=== PATIENT | male | born 1970 | race Caucasian/White ===

== ENCOUNTER 2016-10-06 16:43 | Emergency (ER) | payer OTHER ==
[2016-10-06] MEDS ORDERED: THIAMINE 100 MG/ML 2 ML VIAL IM STA (16:56)
[2016-10-06] MEDS ORDERED: LORazepam 2 MG/ML SYRINGE IV PRN ×2 (16:56)
--- NOTE | 2016-10-06 17:00 | ED ---
Alcohol HPI - General Chief Complaint: Alcohol Stated Complaint: ETOH WITHDRAWALS Time Seen by Provider: 10/06/16 16:46 Source: patient, EMS, RN notes reviewed Mode of arrival: EMS - History of Present Illness Initial Comments: Patient is a 46-year-old male with chief complaint of alcohol withdrawal. Patient reports the epigastric 6 hours gone was 4 shots of vodka. Patient states that he is now sober and is starting to feel anxious and shaky. Patient reports he feels is going to have seizure. Patient states that he has no abdominal pain did not tolerate his head. Patient states that he is currently trying to go through detox and then go to stay with his brother in [place]. Patient reports that he tried to do [facility] however he has failed. Patient states that he is a heavy drinker and drinks approximately a fifth or more of alcohol a year. Patient reports that he has been treated for alcohol intoxication withdrawal multiple times. He states he has been troubled with addiction most of his life. - Related Data Previous Rx's Medication Instructions Recorded LORazepam [Ativan] 1 mg PO TID #9 tab 10/06/16 Ondansetron Odt [Zofran Odt] 4 mg PO Q8HR PRN #12 tab 10/06/16 Allergies Allergy/AdvReac Type Severity Reaction Status Date / Time hydrocodone bitartrate Allergy Itching Verified 10/06/16 16:51 [From Vicodin] Review of Systems ROS Statement: Those systems with pertinent positive or pertinent negative responses have been documented in the HPI. ROS Other: All systems not noted in ROS Statement are negative. Past Medical History Past Medical History: Cancer, Deep Vein Thrombosis (DVT), Pneumonia, Seizure Disorder, Skin Disorder Additional Past Medical History / Comment(s): CHRONIC ALCOHOLIC SEIZURES R/T WITHDRAWLS, NECROTIZING FASCIITIS RT HAND WAS HOSPITALIZED 53 DAYS ( 2010 )- WAS ON BEDREST -DEVELOPED DVT'S , C-DIFF APPROX 4 YEARS AGO. BROKEN NOSE(HAD SX) , PANCREATITIS. History of Any Multi-Drug Resistant Organisms: None Reported Additional Past Surgical History / Comment(s): SKIN GRAFT DONE ON RIGHT HAND/ SKIN WAS TAKEN FROM HIS RT THIGH, PT STATED" HAS A STENT OR FILTER TO STOP BLOOD CLOTS FROM GOING TO HIS HEART: SX TO REPAIR BROKEN NOSE. DISLOCATED RT SHOULDER REPAIRED. Past Anesthesia/Blood Transfusion Reactions: No Reported Reaction Additional Past Anesthesia/Blood Transfusion Reaction / Comment(s): CLAUSTERPHOBIA Past Psychological History: Anxiety, Depression Smoking Status: Current every day smoker Past Alcohol Use History: Abuse, Daily Additional Past Alcohol Use History / Comment(s): STARTED SMOKING AT AGE 20- SMOKES 1/2 PPD.PT STATED HE DRINKS DAILY A FIFTH OF VODKA.DENIES PAST OR CURRENT DRUG USE. Past Drug Use History: None Reported - Past Family History Father Family Medical History: Cancer Additional Family Medical History / Comment(s): MULTIPLE MYELOMA. 2006 Mother Family Medical History: Cancer Additional Family Medical History / Comment(s): BREAST CANCER, STILL LIVING General Exam - General Exam Comments Initial Comments: Patient is a 46-year-old male. Patient is shaking and requesting IV Ativan. General appearance: alert, in no apparent distress Head exam: Present: atraumatic, normocephalic, normal inspection Eye exam: Present: normal appearance, PERRL, EOMI. Absent: scleral icterus, conjunctival injection, periorbital swelling ENT exam: Present: normal exam, normal oropharynx, mucous membranes moist, TM's normal bilaterally Neck exam: Present: normal inspection. Absent: tenderness, meningismus, lymphadenopathy Respiratory exam: Present: normal lung sounds bilaterally. Absent: respiratory distress, wheezes, rales, rhonchi, stridor Cardiovascular Exam: Present: regular rate, normal rhythm, normal heart sounds. Absent: systolic murmur, diastolic murmur, rubs, gallop, clicks GI/Abdominal exam: Present: soft, normal bowel sounds. Absent: distended, tenderness, guarding, rebound, rigid Extremities exam: Present: normal inspection, full ROM, normal capillary refill. Absent: tenderness, pedal edema, joint swelling, calf tenderness Back exam: Present: normal inspection, full ROM Neurological exam: Present: alert, oriented X3, CN II-XII intact Psychiatric exam: Present: normal affect, normal mood Skin exam: Present: warm, dry, intact, normal color. Absent: rash Course Vital Signs 10/06/16 10/06/16 10/06/16 16:46 17:16 17:17 Temperature 97.4 F L 97.8 F Pulse Rate 70 119 H Pulse Rate [ 120 H [employer] ] Respiratory 22 22 Rate Blood Pressure 135/80 109/78 O2 Sat by Pulse 90 L 98 Oximetry 10/06/16 10/06/16 18:40 19:03 Temperature 97.9 F 98.9 F Pulse Rate 98 115 H Pulse Rate [ [employer] ] Respiratory 20 20 Rate Blood Pressure 113/78 134/80 O2 Sat by Pulse 96 93 L Oximetry Medical Decision Making - Medical Decision Making Patient is a 46-year-old male chief complaint of alcohol withdrawal. Patient labs are reviewed. Patient given IV fluids including banana bag. Patient will be discharged at this time with prescription for Ativan, Zofran and advised to follow up with primary care provider. Patient states that he is going to his brother's house to complete detox within the next 3 days. Patient agrees with treatment plan will comply. Return parameters were discussed. - Lab Data Result diagrams: 10/06/16 17:10 10/06/16 17:10 Lab Results 10/06/16 10/06/16 Range/Units 17:10 17:10 WBC 11.4 H (3.8-10.6) k/uL RBC 4.34 (4.30-5.90) m/uL Hgb 16.3 (13.0-17.5) gm/dL Hct 48.0 (39.0-53.0) % MCV 110.7 H (80.0-100.0) fL MCH 37.6 H (25.0-35.0) pg MCHC 33.9 (31.0-37.0) g/dL RDW 14.6 (11.5-15.5) % Plt Count 308 (150-450) k/uL Neutrophils % 73 % Lymphocytes % 19 % Monocytes % 4 % Eosinophils % 1 % Basophils % 1 % Neutrophils # 8.3 H (1.3-7.7) k/uL Lymphocytes # 2.1 (1.0-4.8) k/uL Monocytes # 0.5 (0-1.0) k/uL Eosinophils # 0.1 (0-0.7) k/uL Basophils # 0.1 (0-0.2) k/uL Manual Slide Review Performed Macrocytosis Marked Sodium 130 L (137-145) mmol/L Potassium 3.5 (3.5-5.1) mmol/L Chloride 74 L* (98-107) mmol/L Carbon Dioxide 25 (22-30) mmol/L Anion Gap 31 mmol/L BUN 18 (9-20) mg/dL Creatinine 0.95 (0.66-1.25) mg/dL Est GFR (MDRD) Af Amer >60 (>60 ml/min/1.73 sqM) Est GFR (MDRD) Non-Af >60 (>60 ml/min/1.73 sqM) Glucose 106 H (74-99) mg/dL Calcium 9.9 (8.4-10.2) mg/dL Magnesium 1.9 (1.6-2.3) mg/dL Total Bilirubin 1.5 H (0.2-1.3) mg/dL AST 68 H (17-59) U/L ALT 34 (21-72) U/L Alkaline Phosphatase 103 (38-126) U/L Total Protein 9.4 H (6.3-8.2) g/dL Albumin 5.3 H (3.5-5.0) g/dL Amylase 124 H (30-110) U/L Lipase 142 (23-300) U/L Disposition Clinical Impression: Alcohol dependence with withdrawal Disposition: HOME SELF-CARE Condition: Good Instructions: Alcohol Withdrawal (ED) Additional Instructions: Patient denies to take prescriptions as directed. Follow-up with primary care provider. Patient also recommended to complete a drug and alcohol treatment program. Return emergency department if any alarming signs or symptoms occur. Prescriptions: LORazepam [Ativan] 1 mg PO TID #9 tab Ondansetron Odt [Zofran Odt] 4 mg PO Q8HR PRN #12 tab PRN Reason: Nausea Referrals: Lizabeth Burgess MD [Primary Care Provider] - 1-2 days Time of Disposition: 20:02
[2016-10-06] MEDS: LORazepam 2 MG/ML SYRINGE IV PRN ×3 (17:11→19:03)
[2016-10-06 17:20] LABS: Basophils # (A) 0.1 k/uL (0-0.2); Basophils % (A) 1 %; CH 37.9; CHCM 34.4; Eosinophils # (A) 0.1 k/uL (0-0.7); Eosinophils % (A) 1 %; HDW 2.27; HGB 16.3 gm/dL (13.0-17.5); Luc # (Auto) 0.32; Luc % (Auto) 3; Lymphocytes # (A) 2.1 k/uL (1.0-4.8); Lymphocytes % (A) 19 %; MCH 37.6 pg (25.0-35.0); MCHC 33.9 g/dL (31.0-37.0); MCV 110.7 fL (80.0-100.0); Macrocytosis Marked; Mean Platelet Volume 6.7; Monocytes # (A) 0.5 k/uL (0-1.0); Monocytes % (A) 4 %; Neutrophils # (A) 8.3 k/uL (1.3-7.7); Neutrophils % (A) 73 %; RBC 4.34 m/uL (4.30-5.90); RDW 14.6 % (11.5-15.5); WBC 11.4 k/uL (3.8-10.6); WBC (Perox) 11.43
[2016-10-06 17:30] LABS: ALT 34 U/L (21-72); AST 68 U/L (17-59); Alkaline Phosphatase 103 U/L (38-126); Amylase 124 U/L (30-110); Anion Gap 31 mmol/L; Blood Urea Nitrogen 18 mg/dL (9-20); Calcium 9.9 mg/dL (8.4-10.2); Carbon Dioxide 25 mmol/L (22-30); Glucose 106 mg/dL (74-99); Magnesium 1.9 mg/dL (1.6-2.3); Non-African American GFR(MDRD) >60 (>60 ml/min/1.73 sqM); Potassium 3.5 mmol/L (3.5-5.1); Sodium 130 mmol/L (137-145); Total Bilirubin 1.5 mg/dL (0.2-1.3); Total Protein 9.4 g/dL (6.3-8.2)
[2016-10-06 17:31] LABS: Chloride 74 mmol/L (98-107)
[2016-10-06] MEDS ORDERED: SODIUM CHLORIDE 0.9% 1,000 ML with MVI, ADULT NO.4 WITH VIT K 10 ML, THIAMINE 100 MG, F... IV ONE ×4 (18:00)
[2016-10-06 18:31] LABS: Manual Review Performed
[2016-10-06] MEDS ORDERED: SODIUM CHLORIDE 0.9% 1,000 ML IV ONE (19:15)
[2016-10-06] MEDS ORDERED: LORazepam 2 MG/ML SYRINGE IV STA (20:15)
[2016-10-06 20:31] VITALS: BP 113/59; PULSE 103; RESP 18; TEMP 99.7
== END 2016-10-06 20:30 | disposition home or self-care (01) ==
LOC: EC 16:43
DX: F10.239 Alcohol dependence with withdrawal, unspecified (principal); F17.200 Nicotine dependence, unspecified, uncomplicated; Z88.5 Allergy status to narcotic agent
CPT/HCPCS: 96376 ×3; 99285 ×2; 96365 ×2; 96366 ×3; 96375 ×2; 96372 ×2; 82075; 36415; 80053; 82150; 83690; 83735; 85025; J2060; J3411; 96361; 96374; 99284

== ENCOUNTER 2016-11-01 15:59 | Inpatient (IN) | payer OTHER ==
[2016-11-01] MEDS ORDERED: SODIUM CHLORIDE 0.9% 1,000 ML IV STA (16:14)
[2016-11-01] MEDS ORDERED: LORazepam 2 MG/ML SYRINGE IV STA ×2 (16:18→18:45)
--- NOTE | 2016-11-01 16:33 | ED ---
Chest Pain HPI - General Chief Complaint: Chest Pain Stated Complaint: Chest Pain Time Seen by Provider: 11/01/16 16:00 Source: patient, EMS, RN notes reviewed Mode of arrival: EMS Limitations: no limitations - History of Present Illness Initial Comments: This is a 46-year-old male who is brought in by EMS for evaluation of chest pain but he also states he believes he is going into alcohol withdrawals he drinks more than a half a fifth of alcohol per day his last drink was this morning. He feeling very shaky nauseated. He did have chest pain was 9/10 in severity the following sodium sitting on his chest. He has no prior history of heart or lung disease. He does have a history of going into DTs however. He states that been feeling well last several days. He has no other complaints at this time he was given aspirin and nitro by EMS with unclear results. EKG done by paramedics reveals sinus rhythm nonspecific inferior changes. MD Complaint: chest pain, other - Related Data Home Medications Medication Instructions Recorded Confirmed Omeprazole [PriLOSEC] 20 mg PO DAILY 11/01/16 11/01/16 Allergies Allergy/AdvReac Type Severity Reaction Status Date / Time hydrocodone bitartrate Allergy Itching Verified 11/01/16 17:21 [From Vicodin] Review of Systems ROS Statement: Those systems with pertinent positive or pertinent negative responses have been documented in the HPI. ROS Other: All systems not noted in ROS Statement are negative. EKG Findings - EKG Results: EKG: interpreted by JEAN-PAUL, sinus rhythm (Sinus rhythm rate 69. Interval 166 QRS duration 86 QT/QTC of 444/475 nonspecific anterior changes artifact is present. No acute change seen with compared to the EKG done by EMS.) Past Medical History Past Medical History: Cancer, Deep Vein Thrombosis (DVT), Pneumonia, Seizure Disorder, Skin Disorder Additional Past Medical History / Comment(s): CHRONIC ALCOHOLIC SEIZURES R/T WITHDRAWLS, NECROTIZING FASCIITIS RT HAND WAS HOSPITALIZED 53 DAYS ( 2010 )- WAS ON BEDREST -DEVELOPED DVT'S , C-DIFF APPROX 4 YEARS AGO. BROKEN NOSE(HAD SX) , PANCREATITIS. History of Any Multi-Drug Resistant Organisms: None Reported Additional Past Surgical History / Comment(s): SKIN GRAFT DONE ON RIGHT HAND/ SKIN WAS TAKEN FROM HIS RT THIGH, PT STATED" HAS A STENT OR FILTER TO STOP BLOOD CLOTS FROM GOING TO HIS HEART: SX TO REPAIR BROKEN NOSE. DISLOCATED RT SHOULDER REPAIRED. Past Anesthesia/Blood Transfusion Reactions: No Reported Reaction Additional Past Anesthesia/Blood Transfusion Reaction / Comment(s): CLAUSTERPHOBIA Past Psychological History: Anxiety, Depression Smoking Status: Current every day smoker Past Alcohol Use History: Abuse, Daily Additional Past Alcohol Use History / Comment(s): STARTED SMOKING AT AGE 20- SMOKES 1/2 PPD.PT STATED HE DRINKS DAILY A FIFTH OF VODKA.DENIES PAST OR CURRENT DRUG USE. Past Drug Use History: None Reported - Past Family History Father Family Medical History: Cancer Additional Family Medical History / Comment(s): MULTIPLE MYELOMA. 2006 Mother Family Medical History: Cancer Additional Family Medical History / Comment(s): BREAST CANCER, STILL LIVING General Exam - General Exam Comments Initial Comments: This is a well-developed well-nourished awake alert anxious appearing male he does have the smell of alcohol conjoiners on his breath. Limitations: no limitations General appearance: alert, anxious, in distress Head exam: Present: atraumatic, normocephalic, normal inspection Eye exam: Present: normal appearance, PERRL, EOMI. Absent: scleral icterus, conjunctival injection, periorbital swelling ENT exam: Present: normal exam, mucous membranes moist Neck exam: Present: normal inspection. Absent: tenderness, meningismus, lymphadenopathy Respiratory exam: Present: normal lung sounds bilaterally, chest wall tenderness. Absent: respiratory distress, wheezes, rales, rhonchi, stridor Cardiovascular Exam: Present: regular rate, normal rhythm, normal heart sounds. Absent: systolic murmur, diastolic murmur, rubs, gallop, clicks GI/Abdominal exam: Present: soft, tenderness, normal bowel sounds. Absent: distended, guarding, rebound, rigid, bruit, pulsatile mass, hernia Extremities exam: Present: normal inspection, full ROM, normal capillary refill. Absent: tenderness, pedal edema, joint swelling, calf tenderness Back exam: Present: normal inspection Neurological exam: Present: alert, oriented X3, CN II-XII intact, other (Age does demonstrate some tremor) Psychiatric exam: Present: anxious Skin exam: Present: warm, dry, intact, normal color. Absent: rash Course Vital Signs 11/01/16 11/01/16 11/01/16 16:01 16:55 17:13 Temperature 98.7 F Pulse Rate 69 93 80 Respiratory 16 16 Rate Blood Pressure 125/89 129/92 135/83 O2 Sat by Pulse 99 100 100 Oximetry 11/01/16 11/01/16 18:13 18:56 Temperature Pulse Rate 82 81 Respiratory 16 Rate Blood Pressure 121/75 116/87 O2 Sat by Pulse 100 99 Oximetry - Reevaluation(s) Reevaluation #1: 11/01/16 19:30 Patient is feeling not too much improved less far. Chest Pain MDM - MDM Review the x-ray shows no acute findings. The patient is demonstrating chest pain as well as evidence of withdrawal even though he is markedly intoxicated. He does consume a large amount of alcohol daily. I did discuss case with the hospitalist patient will be admitted for evaluation of chest pain and impending DTs also alcohol intoxication. He is also hypomagnesemic and hypokalemic. Also demonstrating mild pancreatitis Disposition Clinical Impression: Atypical chest pain, Alcohol intoxication, Alcohol withdrawal, Hypomagnesemia, Hypokalemia, Alcohol abuse, Pancreatitis Disposition: ADMITTED IP TO THIS HOSP Condition: Stable
[2016-11-01 17:11] LABS: INR 1.1 (<1.1); Prothrombin Time 11.4 sec (9.0-12.0)
[2016-11-01 17:12] LABS: ALT 34 U/L (21-72); AST 71 U/L (17-59); Alkaline Phosphatase 106 U/L (38-126); Amylase 136 U/L (30-110); Anion Gap 19 mmol/L; Blood Urea Nitrogen 11 mg/dL (9-20); Carbon Dioxide 24 mmol/L (22-30); Chloride 100 mmol/L (98-107); Glucose 90 mg/dL (74-99); Magnesium 1.5 mg/dL (1.6-2.3); Non-African American GFR(MDRD) >60 (>60 ml/min/1.73 sqM); Partial Thromboplastin Time 24.8 sec (22.0-30.0); Sodium 143 mmol/L (137-145); Total Bilirubin 0.7 mg/dL (0.2-1.3); Total Protein 7.1 g/dL (6.3-8.2)
--- NOTE | 2016-11-01 17:15 | XR ---
EXAMINATION TYPE: XR chest 2V DATE OF EXAM: 11/01/2016 5:10 PM COMPARISON: 06/14/2016 HISTORY: Chest pain TECHNIQUE: Frontal and lateral views of the chest are obtained. FINDINGS: Heart and mediastinum are normal. Lungs are clear. Diaphragm is normal. Bony thorax is int act. There is mild pulmonary hyperinflation. IMPRESSION: Possible COPD. No change..
[2016-11-01 17:16] LABS: Potassium 2.7 mmol/L (3.5-5.1)
[2016-11-01 17:31] LABS: Creatine Kinase 195 U/L (55-170)
[2016-11-01] MEDS: POTASSIUM CHLORIDE 20 MEQ, LIDOCAINE 2% INJ 20 MG in SODIUM CHLORIDE 0.9% 100 ML IVPB SCH ×3 (17:32→22:28)
[2016-11-01] MEDS: MAGNESIUM SULFATE-D5W PMX 1 GM in DEXTROSE/WATER 1 100ML.BAG IVPB SCH ×2 (17:33→18:48)
[2016-11-01 17:45] LABS: Troponin I <0.012 ng/mL (0.000-0.034)
[2016-11-01 17:55] LABS: Add Differential Manual Differential
[2016-11-01 17:56] LABS: Nucleated Red Blood Cells 0 /100 WBC (0-0); Polychromasia Present; Total Cells Counted 100
[2016-11-01] MEDS ORDERED: SODIUM CHLORIDE 0.9% 1,000 ML with MVI, ADULT NO.4 WITH VIT K 10 ML, THIAMINE 100 MG, F... IV ONE ×4 (18:00)
[2016-11-01 18:08] LABS: Creatine Kinase MB 2.7 ng/mL (0.0-2.4)
[2016-11-01 18:39] LABS: Basophils # (A) 0.1 k/uL (0-0.2); Basophils % (A) 2 %; CH 37.6; CHCM 34.6; Eosinophils % (A) 0 %; HCT 47.8 % (39.0-53.0); HDW 2.38; HGB 16.2 gm/dL (13.0-17.5); Luc # (Auto) 0.11; Luc % (Auto) 4; Lymphocytes # (A) 1.2 k/uL (1.0-4.8); Lymphocytes % (A) 40 %; MCHC 33.9 g/dL (31.0-37.0); MCV 109.2 fL (80.0-100.0); Macrocytosis Marked; Mean Platelet Volume 7.6; Monocytes # (A) 0.3 k/uL (0-1.0); Monocytes % (A) 11 %; Neutrophils # (A) 1.4 k/uL (1.3-7.7); Neutrophils % (A) 45 %; RBC 4.38 m/uL (4.30-5.90); RDW 14.7 % (11.5-15.5); WBC (Perox) 2.79
[2016-11-01] MEDS ORDERED: NITROGLYCERIN SL TABS 0.4 MG TAB SUBLINGUAL PRN (19:35)
[2016-11-01] MEDS ORDERED: THIAMINE 100 MG/ML 2 ML VIAL IM STA (19:37)
[2016-11-01] MEDS ORDERED: ZIPRASIDONE 20 MG VIAL IM STA (20:10)
[2016-11-01] MEDS: LORazepam 2 MG/ML SYRINGE IV PRN (21:06)
[2016-11-01 21:27] VITALS: BMI 21.9
[2016-11-01] MEDS: SODIUM CHLORIDE 0.9% 1,000 ML IV SCH (22:47)
[2016-11-01 23:23] LABS: Creatine Kinase 179 U/L (55-170)
[2016-11-01 23:36] LABS: Creatine Kinase MB 2.1 ng/mL (0.0-2.4); Troponin I <0.012 ng/mL (0.000-0.034)
[2016-11-02] MEDS: LORazepam 2 MG/ML SYRINGE IV PRN ×12 (00:03→20:59)
[2016-11-02] MEDS ORDERED: Potassium Replacement Protocol 1 EACH MISC MISCELLANE PRN (01:48)
[2016-11-02] MEDS: POTASSIUM CHLORIDE 10 MEQ, LIDOCAINE 2% INJ 10 MG in SODIUM CHLORIDE 0.9% 100 ML IV SCH ×3 (02:54→05:21)
[2016-11-02] MEDS: ONDANSETRON 4 MG/2 ML VIAL IVP PRN ×2 (06:21→20:58)
[2016-11-02 06:25] LABS: Magnesium 1.7 mg/dL (1.6-2.3); Potassium 3.2 mmol/L (3.5-5.1)
[2016-11-02 06:40] LABS: Creatine Kinase 180 U/L (55-170)
[2016-11-02 06:51] LABS: Creatine Kinase MB 1.7 ng/mL (0.0-2.4); Troponin I <0.012 ng/mL (0.000-0.034)
[2016-11-02 07:22] LABS: Glucose,Whole Blood 112 mg/dL (75-99)
[2016-11-02] MEDS ORDERED: PANTOPRAZOLE 40 MG TABLET PO SCH (07:30)
[2016-11-02] MEDS: SODIUM CHLORIDE 0.9% 1,000 ML IV SCH (08:00)
[2016-11-02] MEDS: HALOPERIDOL LACTATE 5 MG/ML 1 ML VIAL IM PRN ×2 (08:15→23:00)
[2016-11-02] MEDS: ASPIRIN 325 MG TAB PO SCH (08:19)
[2016-11-02] MEDS: THIAMINE 100 MG TAB PO SCH ×2 (08:19→15:39)
[2016-11-02 08:24] LABS: Basophils % (A) 0 %; CH 37.6; CHCM 33.5; Eosinophils # (A) 0.1 k/uL (0-0.7); Eosinophils % (A) 1 %; HCT 42.3 % (39.0-53.0); HDW 2.29; Luc # (Auto) 0.07; Luc % (Auto) 1; Lymphocytes # (A) 0.4 k/uL (1.0-4.8); Lymphocytes % (A) 5 %; MCH 37.2 pg (25.0-35.0); MCV 112.8 fL (80.0-100.0); Macrocytosis Marked; Mean Platelet Volume 6.9; Monocytes # (A) 0.3 k/uL (0-1.0); Monocytes % (A) 4 %; Neutrophils # (A) 6.6 k/uL (1.3-7.7); Neutrophils % (A) 89 %; RBC 3.75 m/uL (4.30-5.90); RDW 14.7 % (11.5-15.5); WBC 7.5 k/uL (3.8-10.6); WBC (Perox) 8.03
[2016-11-02 08:38] LABS: Anion Gap 8 mmol/L; Blood Urea Nitrogen 11 mg/dL (9-20); Calcium 8.4 mg/dL (8.4-10.2); Carbon Dioxide 27 mmol/L (22-30); Chloride 103 mmol/L (98-107); Glucose 113 mg/dL (74-99); Non-African American GFR(MDRD) >60 (>60 ml/min/1.73 sqM); Phosphorous 1.7 mg/dL (2.5-4.5); Potassium 3.2 mmol/L (3.5-5.1); Sodium 138 mmol/L (137-145)
[2016-11-02] MEDS: PANTOPRAZOLE 40 MG/10 ML VIAL IVP SCH ×2 (08:43→20:52)
[2016-11-02] MEDS ORDERED: NALOXONE 0.4 MG/ML 1 ML VIAL IV PRN (08:46)
[2016-11-02] MEDS ORDERED: Magnesium Replacement Protocol 1 EACH MISC MISCELLANE PRN (08:48)
[2016-11-02] MEDS: POTASSIUM CHLORIDE ER 20 MEQ TAB.ER PO SCH ×6 (09:16→22:03)
[2016-11-02] MEDS: MAGNESIUM SULFATE-D5W PMX 1 GM in DEXTROSE/WATER 1 100ML.BAG IVPB SCH ×2 (09:21→10:26)
--- NOTE | 2016-11-02 10:03 | P.CRDCN ---
History of Present Illness Consult date: 11/02/16 Chief complaint: Chest discomfort History of present illness: This is a pleasant 46-year-old gentleman with no significant past medical history presented to the emergency room because he was not feeling well. The patient was experiencing symptoms of alcohol withdrawal. He was feeling shaky, sweaty, and weak. Beside that he was having mild chest discomfort. The EKG showed sinus rhythm with early repolarization. The cardiac enzymes were checked and came in to be within normal limits. The patient has no risk factor for CAD like diabetes or hypertension or dyslipidemia. He doesn't smoke about 3 cigarettes per day. He has no significant family history of CAD. The patient is currently experiencing alcohol withdrawal symptoms. I recommended treat him medically at this point. Start the patient on a small dose of metoprolol to control the heart rate. He definitely need to have a stress test to rule out any severe underlying CAD. Past Medical History Past Medical History: Cancer, Deep Vein Thrombosis (DVT), Pneumonia, Seizure Disorder, Skin Disorder Additional Past Medical History / Comment(s): CHRONIC ALCOHOLIC SEIZURES R/T WITHDRAWLS, NECROTIZING FASCIITIS RT HAND WAS HOSPITALIZED 53 DAYS ( 2010 )- WAS ON BEDREST -DEVELOPED DVT'S , C-DIFF APPROX 4 YEARS AGO. BROKEN NOSE(HAD SX) , PANCREATITIS. History of Any Multi-Drug Resistant Organisms: C-DIFF Date of last positivie culture/infection: 2010 MDRO Source:: bowel Past Surgical History: Orthopedic Surgery Additional Past Surgical History / Comment(s): SKIN GRAFT DONE ON RIGHT HAND/ SKIN WAS TAKEN FROM HIS RT THIGH, PT STATED" HAS A STENT OR FILTER TO STOP BLOOD CLOTS FROM GOING TO HIS HEART: SX TO REPAIR BROKEN NOSE. DISLOCATED RT SHOULDER REPAIRED. Past Anesthesia/Blood Transfusion Reactions: No Reported Reaction Additional Past Anesthesia/Blood Transfusion Reaction / Comment(s): CLAUSTERPHOBIA Past Psychological History: Anxiety, Depression, Panic Disorder Additional Psychological History / Comment(s): Pt states was in [employer]; denies PTSD Smoking Status: Current every day smoker Past Alcohol Use History: Abuse, Daily Additional Past Alcohol Use History / Comment(s): STARTED SMOKING AT AGE 20- SMOKES 1/2 PPD.PT STATED HE DRINKS DAILY A FIFTH OF VODKA.DENIES PAST OR CURRENT DRUG USE. Past Drug Use History: None Reported - Past Family History Father Family Medical History: Cancer Additional Family Medical History / Comment(s): MULTIPLE MYELOMA. 2006 Mother Family Medical History: Cancer Additional Family Medical History / Comment(s): BREAST CANCER, STILL LIVING Medications and Allergies Home Medications Medication Instructions Recorded Confirmed Type Omeprazole [PriLOSEC] 20 mg PO DAILY 11/01/16 11/01/16 History Allergies Allergy/AdvReac Type Severity Reaction Status Date / Time hydrocodone bitartrate Allergy Itching Verified 11/01/16 17:21 [From Vicodin] Physical Exam Vitals: Vital Signs Temp Pulse Pulse Resp BP BP Pulse Ox 11/02/16 04:00 98.2 F 113 H 16 118/72 95 11/02/16 00:00 97.5 F L 103 H 16 114/78 94 L 11/01/16 20:23 97.6 F 97 16 114/82 96 11/01/16 20:13 97.6 F 90 20 119/75 97 Intake and Output 11/01/16 11/02/16 11/02/16 22:59 06:59 14:59 Intake Total 400 1000 Balance 400 1000 Intake: IV 400 1000 Potassium Chloride 20 meq 200 200 Lidocaine 2% Inj 20 mg In Sodium Chloride 0.9% 100 ml @ 55.5 mls/hr IVPB Q2HR JOSLYN Rx#:[id number] Sodium Chloride 0.9% 1, 200 800 000 ml @ 100 mls/hr IV . Q10H7M ONE with Mvi, Adult No.4 with Vit K 10 ml with Thiamine 100 mg with Folic Acid 1 mg Rx#: [id number] Other: Voiding Method Urinal Urinal Weight 63.5 kg 60.1 kg - Constitutional General appearance: no acute distress - Respiratory Respiratory: bilateral: CTA - Cardiovascular Rhythm: regular Heart sounds: normal: S1, S2 Results 11/02/16 08:14 11/02/16 08:14 Cardiac Enzymes 11/01/16 11/02/16 Range/Units 22:42 05:27 CK-MB (CK-2) 2.1 1.7 (0.0-2.4) ng/mL Troponin I <0.012 <0.012 (0.000-0.034) ng/mL Lipids 11/02/16 Range/Units 05:27 Triglycerides 47 (<150) mg/dL Cholesterol 177 (<200) mg/dL HDL Cholesterol 137 H (40-60) mg/dL CBC 05/11/17 Range/Units 08:14 WBC 7.5 (3.8-10.6) k/uL RBC 3.75 L (4.30-5.90) m/uL Hgb 14.0 (13.0-17.5) gm/dL Hct 42.3 (39.0-53.0) % Plt Count 78 L (150-450) k/uL Comprehensive Metabolic Panel 11/02/16 11/02/16 11/02/16 Range/Units 01:10 05:27 08:14 Sodium 138 (137-145) mmol/L Potassium 2.9 L* 3.2 L 3.2 L (3.5-5.1) mmol/L Chloride 103 (98-107) mmol/L Carbon Dioxide 27 (22-30) mmol/L BUN 11 (9-20) mg/dL Creatinine 0.64 L (0.66-1.25) mg/dL Glucose 113 H (74-99) mg/dL Calcium 8.4 (8.4-10.2) mg/dL Current Medications Generic Name Dose Route Start Last Admin Trade Name Freq PRN Reason Stop Dose Admin Aspirin 325 mg 11/02/16 09:00 11/02/16 08:19 Aspirin PO 325 mg DAILY JOSLYN Administration Haloperidol Lactate 5 mg 11/02/16 06:47 11/02/16 08:15 Haldol IM 5 mg Q4HR PRN Administration Agitation or Acute Psychosis Sodium Chloride 1,000 mls @ 20 mls/hr 11/01/16 19:45 11/01/16 22:47 Saline 0.9% IV Not Given .Q24H JOSLYN Magnesium Sulfate/Dextrose 1 100 mls @ 100 mls/hr 11/02/16 09:00 11/02/16 09: 21 gm/ IV Solution IVPB 11/02/16 10:59 100 mls/hr Q1H JOSLYN Administration Lorazepam 1 mg 11/01/16 19:37 11/02/16 09:20 Ativan IV 1 mg Q2HR PRN Administration CIWA 8 or 9 Lorazepam 1 mg 11/01/16 19:37 11/02/16 05:25 Ativan IV 1 mg Q1HR PRN Administration CIWA 10 to 15 Lorazepam 2 mg 11/01/16 19:37 11/02/16 07:51 Ativan IV 2 mg Q1HR PRN Administration CIWA 16 or higher Miscellaneous Information 1 each 11/02/16 01:48 Potassium Per Protocol MISCELLANE DAILY PRN Per Protocol Protocol Miscellaneous Information 1 each 11/02/16 08:48 Magnesium Per Protocol MISCELLANE DAILY PRN Per Protocol Protocol Naloxone HCl 0.2 mg 11/02/16 08:46 Narcan IV Q2M PRN Opioid Reversal Nitroglycerin 0.4 mg 11/01/16 19:35 Nitrostat SUBLINGUAL Q5M PRN Chest Pain Ondansetron HCl 4 mg 11/02/16 06:08 11/02/16 06:21 Zofran IVP 4 mg Q6HR PRN Administration Nausea And Vomiting Pantoprazole Sodium 40 mg 11/02/16 07:00 11/02/16 08:43 Protonix IVP 40 mg BID JOSLYN Administration Potassium Chloride 20 meq 11/02/16 09:00 11/02/16 09:16 K-Dur 20 PO 11/02/16 10:01 20 meq Q1HR JOSLYN Administration Thiamine HCl 100 mg 11/02/16 12:00 11/02/16 08:19 Vitamin B-1 PO 100 mg BID@1200,1700 JOSLYN Administration Intake and Output 11/01/16 11/02/16 11/02/16 22:59 06:59 14:59 Intake Total 400 1000 Balance 400 1000 Intake: IV 400 1000 Potassium Chloride 20 meq 200 200 Lidocaine 2% Inj 20 mg In Sodium Chloride 0.9% 100 ml @ 55.5 mls/hr IVPB Q2HR JOSLYN Rx#:[id number] Sodium Chloride 0.9% 1, 200 800 000 ml @ 100 mls/hr IV . Q10H7M ONE with Mvi, Adult No.4 with Vit K 10 ml with Thiamine 100 mg with Folic Acid 1 mg Rx#: [id number] Other: Voiding Method Urinal Urinal Weight 63.5 kg 60.1 kg 11/02/16 08:14 11/02/16 08:14 Assessment and Plan Plan: Assessment #1 alcohol withdrawal symptoms #2 atypical chest discomfort Plan #1 the patient is getting treated for alcohol withdrawal #2 of start him a small dose of beta yoanna #3 obtain an echocardiogram was Doppler #4 stress test to be done down the line
--- NOTE | 2016-11-02 12:17 | P.CNPUL ---
History of Present Illness Consult date: 11/02/16 Requesting physician: Adalid Moya Reason for consult: other (Critical care management.) Chief complaint: Chest pain, alcohol withdrawal History of present illness: This is a pleasant 46-year-old gentleman who follows with Dr. Yanet Moya as his primary care physician. He has a history of chronic alcoholism with previous seizures secondary to withdrawal, DVT, necrotizing fasciitis of the right forearm with skin grafting, C. difficile toxicity, anxiety/depression , chronic and ongoing tobacco dependence. Patient does drink a fifth of vodka daily. He has moved here from the [facility]. He is residing in a motel. He was brought here to the emergency room yesterday by EMS with complaints of chest pain. He also was treated for acute alcohol intoxication. Serum alcohol level was 416. He also had elevated amylase at 136, lipase 875, AST 71. Also hypokalemic with a potassium of 2.7. Troponins negative 3. Platelet count 70, 000, MCV 109. He was admitted to the selective care unit. He was placed in the CIWA protocol and was given Ativan throughout the evening. He was quite obtunded this morning and they called an A team on him and transferred him here to the intensive care unit. Her consulted for critical care management. Currently the patient is awake and alert in no acute distress. He has some fine hand tremors. He is alert and oriented 3. He does admitting to drinking a significant amount of alcohol yesterday. He is tolerating a diet this morning. His chest x-ray reveals evidence of COPD but no acute pulmonary process. No leukocytosis. He is maintaining good O2 saturations in the 90s on room air. Currently denies any chest pain, palpitations lightheadedness or dizziness. No shortness of breath, cough or congestion. Review of Systems 14 point review of system was conducted. All negative other than as mentioned in the HPI. Past Medical History Past Medical History: Cancer, Deep Vein Thrombosis (DVT), Pneumonia, Seizure Disorder, Skin Disorder Additional Past Medical History / Comment(s): CHRONIC ALCOHOLIC SEIZURES R/T WITHDRAWLS, NECROTIZING FASCIITIS RT HAND WAS HOSPITALIZED 53 DAYS ( 2010 )- WAS ON BEDREST -DEVELOPED DVT'S , C-DIFF APPROX 4 YEARS AGO. BROKEN NOSE(HAD SX) , PANCREATITIS. History of Any Multi-Drug Resistant Organisms: C-DIFF Date of last positivie culture/infection: 2010 MDRO Source:: bowel Past Surgical History: Orthopedic Surgery Additional Past Surgical History / Comment(s): SKIN GRAFT DONE ON RIGHT HAND/ SKIN WAS TAKEN FROM HIS RT THIGH, PT STATED" HAS A STENT OR FILTER TO STOP BLOOD CLOTS FROM GOING TO HIS HEART: SX TO REPAIR BROKEN NOSE. DISLOCATED RT SHOULDER REPAIRED. Past Anesthesia/Blood Transfusion Reactions: No Reported Reaction Additional Past Anesthesia/Blood Transfusion Reaction / Comment(s): CLAUSTERPHOBIA Past Psychological History: Anxiety, Depression, Panic Disorder Additional Psychological History / Comment(s): Pt states was in [place]; denies PTSD Smoking Status: Current every day smoker Past Alcohol Use History: Abuse, Daily Additional Past Alcohol Use History / Comment(s): STARTED SMOKING AT AGE 20- SMOKES 1/2 PPD.PT STATED HE DRINKS DAILY A FIFTH OF VODKA.DENIES PAST OR CURRENT DRUG USE. Past Drug Use History: None Reported - Past Family History Father Family Medical History: Cancer Additional Family Medical History / Comment(s): MULTIPLE MYELOMA. 2006 Mother Family Medical History: Cancer Additional Family Medical History / Comment(s): BREAST CANCER, STILL LIVING Medications and Allergies Home Medications Medication Instructions Recorded Confirmed Type Omeprazole [PriLOSEC] 20 mg PO DAILY 11/01/16 11/01/16 History Allergies Allergy/AdvReac Type Severity Reaction Status Date / Time hydrocodone bitartrate Allergy Itching Verified 11/01/16 17:21 [From Vicodin] Physical Exam Vitals: Vital Signs Temp Pulse Pulse Resp BP BP Pulse Ox 11/02/16 10:00 96 19 112/74 94 L 11/02/16 09:00 98 18 114/72 93 L 11/02/16 08:00 98.4 F 85 17 103/76 93 L 11/02/16 04:00 98.2 F 113 H 16 118/72 95 11/02/16 00:00 97.5 F L 103 H 16 114/78 94 L 11/01/16 20:23 97.6 F 97 16 114/82 96 11/01/16 20:13 97.6 F 90 20 119/75 97 Intake and Output 11/01/16 11/02/16 11/02/16 22:59 06:59 14:59 Intake Total 400 1000 240 Balance 400 1000 240 Intake: IV 400 1000 40 Potassium Chloride 20 meq 200 200 Lidocaine 2% Inj 20 mg In Sodium Chloride 0.9% 100 ml @ 55.5 mls/hr IVPB Q2HR [facility] Rx#:[id number] Sodium Chloride 0.9% 1, 200 800 000 ml @ 100 mls/hr IV . Q10H7M ONE with Mvi, Adult No.4 with Vit K 10 ml with Thiamine 100 mg with Folic Acid 1 mg Rx#: [id number] Sodium Chloride 0.9% 1, 40 000 ml @ 20 mls/hr IV . Q24H [facility] Rx#:[id number] Intake, IV Titration 200 Amount Magnesium Sulfate-D5w Pmx 200 1 gm In Dextrose/Water 1 100ml.bag @ 100 mls/hr IVPB Q1H [facility] Rx#: [id number] Other: Voiding Method Urinal Urinal Toilet # Voids 1 # Bowel Movements 1 Weight 63.5 kg 60.1 kg GENERAL EXAM: Alert, active, comfortable in no apparent distress. HEAD: Normocephalic. EYES: Normal reaction of pupils, equal size. NOSE: Clear with pink turbinates. THROAT: No erythema or exudates. NECK: No masses, no JVD. CHEST: No chest wall deformity. LUNGS: Equal air entry with no crackles, wheeze, rhonchi or dullness. CVS: S1 and S2 normal with no audible murmurs, regular rhythm. ABDOMEN: No hepatosplenomegaly, normal bowel sounds, no guarding or rigidity. SPINE: No scoliosis or deformity SKIN: No rashes CENTRAL NERVOUS SYSTEM: No focal deficits, tone is normal in all 4 extremities. Extremities: There is no significant peripheral edema. No clubbing, no cyanosis. Peripheral pulses are intact. Results - Laboratory Findings CBC and BMP: 11/02/16 08:14 11/02/16 08:14 PT/INR, D-dimer PT 11.4 sec (9.0-12.0) 11/01/16 16:32 INR 1.1 (<1.1) 11/01/16 16:32 Abnormal lab findings: Abnormal Labs 11/01/16 11/02/16 11/02/16 22:42 01:10 05:27 RBC MCV MCH Plt Count Lymphocytes # Potassium 2.9 L* Creatinine Glucose POC Glucose (mg/dL) Phosphorus Total Creatine Kinase 179 H 180 H HDL Cholesterol 11/02/16 11/02/16 11/02/16 05:27 07:18 08:14 RBC 3.75 L MCV 112.8 H MCH 37.2 H Plt Count 78 L Lymphocytes # 0.4 L Potassium 3.2 L Creatinine Glucose POC Glucose (mg/dL) 112 H Phosphorus Total Creatine Kinase HDL Cholesterol 137 H 11/02/16 08:14 RBC MCV MCH Plt Count Lymphocytes # Potassium 3.2 L Creatinine 0.64 L Glucose 113 H POC Glucose (mg/dL) Phosphorus 1.7 L Total Creatine Kinase HDL Cholesterol - Diagnostic Findings Chest x-ray: image reviewed (COPD. No acute pulmonary process.) Assessment and Plan Plan: Impression: #1 Altered mental status secondary to Ativan use for alcohol withdrawal. Recovered. #2 Atypical chest pain without evidence of acute coronary syndrome. #3 Acute on chronic alcoholism, admitting alcohol level 416. #4 Chronic obstructive pulmonary disease, currently inactive and stable. #5 Chronic and ongoing nicotine addiction. #6 History of DVT status post Eusebio filter. #7 History of necrotizing fasciitis of the right forearm, status post skin grafting. #8 start of anxiety/depression. Plan: The patient was seen and evaluated by Dr. Pisano. His chest x-ray and labs were reviewed. The patient is stable from the pulmonary and critical care standpoint and could be transferred back out to the regular medical floor or even possibly to home. Cautious use of Ativan. Replace electrolytes. Continue thiamine. He remains on Protonix for GI prophylaxis. If not home today, we will continue to follow make further recommendations based on his clinical status. Time with Patient: Greater than 30
[2016-11-02 13:06] LABS: Appearance,Urine Clear (Clear); Bilirubin,Urine 1+ (Negative); Glucose,Urine (UA) 3+ (Negative); Ketones,Urine Trace (Negative); Leukocyte Esterase,Urine Negative (Negative); Mucus,Urine Occasional /hpf; Nitrite,Urine Negative (Negative); Particle Count 4413; Protein,Urine 2+ (Negative); RBC,Urine 22 /hpf (0-5); Specific Gravity,Urine 1.024 (1.001-1.035); UA Billing (MACRO vs. MICRO) MICRO; Urobilinogen,Urine <2.0 mg/dL (<2.0); WBC,Urine 2 /hpf (0-5)
[2016-11-02 13:58] LABS: Amylase 114 U/L (30-110)
--- NOTE | 2016-11-02 16:43 | HP ---
DATE OF ADMISSION: 11/01/2016 CHIEF COMPLAINT: Chest pain. HISTORY OF PRESENT ILLNESS: This is a 46-year-old gentleman with a past medical history of multiple complex medical issues. History of DVT, history of pneumonia, seizure disorder, history of alcoholic seizures, history of panic disorder, being followed by Dr. Lizabeth Burgess. The patient was admitted with chest pain to [facility]. The patient apparently drinks about more than a fifth of alcohol a day. The patient was feeling nauseated. The patient also had chest pain anterior part of the chest without radiation. The patient also had shakes also. The patient came to the Emergency Room Department yesterday. The patient had an episode of unresponsiveness of undetermined etiology. Patient is being transferred to ICU and being monitored. Currently the patient and the patient being closely monitored. The patient was given aspirin and nitro by EMS. Cardiology evaluation in progress. The patient has severe hypokalemic 2.7 on admission. Amylase and lipase elevated indicating acute pancreatitis also. There is no history of fever, chills or rigors. No history of headaches, loss of consciousness or seizures. PAST MEDICAL HISTORY: History of deep venous thrombosis, history of pneumonia, seizure disorder, history of alcoholic seizures. Medications prior to admission include: Prilosec 20 mg p.o. ALLERGIES: VICODIN. FAMILY HISTORY: History of cancer, multiple myelomas. SOCIAL HISTORY: History of alcohol. Significant smoking. REVIEW OF SYSTEMS: ENT: No diminishing hearing. No diminished vision. CARDIOVASCULAR: As mentioned earlier. RESPIRATORY: As mentioned earlier. GI: No nausea. : No dysuria. Nervous system: No numbness or weakness. ALLERGY/IMMUNOLOGY: No asthma or hayfever. MUSCULOSKELETAL: As mentioned earlier. HEMATOLOGY/ONCOLOGY: No history of anemia. ENDOCRINE: No history of diabetes mellitus, hypothyroidism. CONSTITUTIONAL: As mentioned earlier. DERMATOLOGY: Negative. RHEUMATOLOGY: Negative. PSYCHIATRY: as mentioned earlier. PHYSICAL EXAMINATION: The patient is alert and oriented times three. Pulse is 69, blood pressure 125/89, respiratory rate 16, temperature 98.7, pulse ox 99% on 2 L. HEENT: Conjunctivae normal. Oral mucosa moist. NECK: No jugular venous distention. No carotid bruit. No lymph node enlargement. CARDIOVASCULAR: S1, S2 muffled. RESPIRATORY: Breath sounds diminished at the bases. Scattered rhonchi and crackles. ABDOMEN: Soft, nontender. No mass palpable. Legs: No edema. No swelling. Nervous system: Higher function as mentioned. Moves all 4 limbs. No focal deficits. Otherwise cranial nerves 2 thru 12 grossly intact. Moves all 4 limbs. No focal motor or sensory deficits. LYMPHATICS: No lymph nodes palpable in the neck, axillae or groin. SKIN: No ulcer, rash or bleeding. Joints: No active deforming arthropathy. LABS: WBC is 3, MCV 109.2, platelets of 70, potassium 2.7. Magnesium 1.5 and CK is 195. Amylase is 137, lipase 875, serum alcohol 469. ASSESSMENT: 1. Acute alcohol intoxication, present on admission. 2. Chest pain for evaluation, possibly musculoskeletal. 3. Alcohol withdrawals and delirium tremens. 4. Acute alcoholic pancreatitis. 5. History of hypokalemia. 6. Increased AST, possible acute alcoholic hepatitis. 7. Hypomagnesemia. 8. Increased creatinine kinase with normal troponins. 9. Thrombocytopenia, possibly secondary to chronic liver disease. 10. Increased MCV. 11. Leukopenia, possibly secondary to alcohol. 12. History of noncompliance. 13. History of deep venous thrombosis. 14. History of pneumonia. 15. Seizure disorder secondary to alcohol withdrawals. 16. History of necrotizing fasciitis of the right hand. 17. History of C. difficile. 18. History of pancreatitis. 19. History of degenerative joint disease. 20. Anxiety, depression, and panic disorder, not otherwise specified. 21. History of claustrophobia. 22. History of nicotine dependence. RECOMMENDATIONS AND DISCUSSION: In this 46-year-old gentleman who presented with multiple complex medical issues, we will monitor the patient closely. Continue the current medications. Continue symptomatic treatment. I would recommend CIWA protocol and Haldol also p.r.n. Otherwise, multivitamin supplements, alcohol withdrawal precautions. Sensorium has improved significantly. Oxygenation is adequate and continue the rest of the medications. I will recommend repeat labs. Continue with the potassium replacement and follow-up and also. Repeat amylase, lipase. Prognosis guarded because of multiple complex medical issues. Further recommendations to follow. A copy of dictation being forwarded to Dr. Lizabeth Burgess who is the primary physician. [facility]ITALToni
[2016-11-02] MEDS ORDERED: ACETAMINOPHEN TAB 325 MG TAB PO PRN (17:09)
[2016-11-02] MEDS: METOPROLOL TARTRATE 12.5 MG TAB PO SCH (20:51)
[2016-11-03] MEDS: LORazepam 2 MG/ML SYRINGE IV PRN ×3 (00:31→10:45)
[2016-11-03] MEDS: PANTOPRAZOLE 40 MG/10 ML VIAL IVP SCH (07:35)
[2016-11-03] MEDS: METOPROLOL TARTRATE 12.5 MG TAB PO SCH (07:35)
[2016-11-03] MEDS: ASPIRIN 325 MG TAB PO SCH (07:35)
[2016-11-03 07:47] VITALS: BP 115/83; PULSE 67; RESP 16; TEMP 98.6
[2016-11-03 08:30] LABS: Amylase 112 U/L (30-110); Anion Gap 7 mmol/L; Blood Urea Nitrogen 8 mg/dL (9-20); Calcium 8.1 mg/dL (8.4-10.2); Carbon Dioxide 22 mmol/L (22-30); Chloride 107 mmol/L (98-107); Glucose 92 mg/dL (74-99); Magnesium 1.6 mg/dL (1.6-2.3); Non-African American GFR(MDRD) >60 (>60 ml/min/1.73 sqM); Phosphorous 1.9 mg/dL (2.5-4.5); Potassium 3.9 mmol/L (3.5-5.1); Sodium 136 mmol/L (137-145)
[2016-11-03 08:33] LABS: Basophils % (A) 0 %; CH 37.8; CHCM 34.2; Eosinophils % (A) 1 %; HCT 38.1 % (39.0-53.0); HDW 2.36; Luc # (Auto) 0.08; Luc % (Auto) 1; Lymphocytes # (A) 0.7 k/uL (1.0-4.8); Lymphocytes % (A) 12 %; MCH 37.9 pg (25.0-35.0); MCHC 34.1 g/dL (31.0-37.0); Macrocytosis Marked; Monocytes # (A) 0.2 k/uL (0-1.0); Monocytes % (A) 4 %; Neutrophils # (A) 4.5 k/uL (1.3-7.7); Neutrophils % (A) 81 %; RBC 3.43 m/uL (4.30-5.90); RDW 14.2 % (11.5-15.5); WBC 5.6 k/uL (3.8-10.6)
[2016-11-03 09:32] LABS: Manual Review Performed
--- NOTE | 2016-11-03 11:17 | ECHOF ---
Referral Reason:chest pain MEASUREMENTS -------- HEIGHT: 170.2 cm WEIGHT: 59.9 kg BP: 112/75 RVIDd: 3.1 cm (< 3.3) IVSd: 1.0 cm (0.6 - 1.1) LVIDd: 3.8 cm (3.9 - 5.3) LVPWd: 0.9 cm (0.6 - 1.1) IVSs: 1.5 cm LVIDs: 2.2 cm LVPWs: 1.3 cm LA Diam: 3.0 cm (2.7 - 3.8) Ao Diam: 3.6 cm (2.0 - 3.7) AV Cusp: 2.5 cm (1.5 - 2.6) MV EXCURSION: 17.484 mm (> 18.000) MV EF SLOPE: 48 mm/s (70 - 150) EPSS: 0.5 cm MV E Jr: 0.76 m/s MV DecT: 171 ms MV A Jr: 0.82 m/s MV E/A Ratio: 0.93 FINDINGS -------- Sinus rhythm. This was a technically good study. The left ventricular size is normal. Left ventricular wall thickness is normal. Overall left ventricular systolic function is normal with, an EF between 60 - 65 %. The right ventricle is normal in size. The left atrial size is normal. The right atrium is normal in size. The aortic valve is trileaflet and appears structurally normal. There is trace mitral regurgitation. The tricuspid valve appears structurally normal. The pulmonic valve is normal. The aortic root size is normal. Normal inferior vena cava with normal inspiratory collapse consistent with estimated right atrial pressure of 5 mmHg. The pericardium is normal. CONCLUSIONS -------- 1. Sinus rhythm. 2. The tricuspid valve appears structurally normal. 3. The pulmonic valve is normal. 4. The aortic root size is normal. 5. Normal inferior vena cava with normal inspiratory collapse consistent with estimated right atrial pressure of 5 mmHg. 6. The pericardium is normal. 7. This was a technically good study. 8. The left ventricular size is normal. 9. Left ventricular wall thickness is normal. 10. Overall left ventricular systolic function is normal with, an EF between 60 - 65 %. 11. The right ventricle is normal in size. 12. The left atrial size is normal. 13. The aortic valve is trileaflet and appears structurally normal. 14. There is trace mitral regurgitation. [employer] APPLICATOR: Marlene Magaña RDCS
--- NOTE | 2016-11-03 13:44 | PN ---
Finn Schafer is a gentleman with alcohol withdrawal, remains in sinus rhythm comfortable, resting. Denies any chest pain, stable shortness of breath. Vitals are stable. S1, S2 heard normally. Lungs are clear. Abdomen and lower extremity exam unchanged. Echocardiogram revealed preserved systolic function. This patient can be discharged and a stress test can be performed after evaluation as an outpatient.
--- NOTE | 2016-11-07 14:40 | DS ---
DATE OF ADMISSION: 11/01/2016 DATE OF DISCHARGE: 11/03/2016 DATE OF SERVICE: 11/03/2016 FINAL DIAGNOSES: 1. Acute alcohol intoxication present on admission. 2. Chest pain, possibly musculoskeletal. 3. Alcohol withdrawals and delirium tremens. 4. Acute alcoholic pancreatitis. 5. History of hypokalemia. 6. Increased AST, possible alcoholic hepatitis. 7. Hypomagnesium. 8. Increased creatinine kinase with normal troponins. 9. Thrombocytopenia, possibly secondary to chronic liver disease. 10. Increased MCV. 11. Leukopenia, possibly secondary Ethyl alcohol. 12. History of noncompliance. 13. History of deep venous thrombosis. 14. History of pneumonia. 15. Seizure disorder secondary to alcohol withdrawal. 16. History of necrotizing fasciitis of the right hand. 17. History of Clostridium difficile. 18. History of pancreatitis. 19. History of degenerative joint disease. 20. Anxiety, depression, panic disorder, not otherwise specified. 21. History of claustrophobia. 22. History of nicotine dependence. DISCHARGE DISPOSITION: The patient will be discharged in a stable condition with guarded prognosis. Patient is extremely keen on going home. HISTORY OF PRESENT ILLNESS: This is a 46-year-old gentleman with a past medical chest of multiple medical problems, was admitted with chest pain, features of pancreatitis and multiple symptomatology, alcohol intoxication. Treated symptomatically, patient improved significantly. However, are still elevated but; however, the patient informed us that the patient will be leaving [place], is not being discharged to go for another appointment. Currently, the patient is stable. On exam, vitals are stable. CARDIOVASCULAR SYSTEM: S1, S2, muffled. ABDOMEN: Soft, nontender. No mass palpable, no guarding. LEGS: No edema, no swelling. NERVOUS SYSTEM: No focal deficits. The patient will be discharged in a stable condition with guarded prognosis. 1. Diet is cardiac. 2. Activity limited until followup. 3. Follow up with Dr. Lizabeth Burgess in 2 to 3 days. 4. Follow up labs CBC, BMP . Medications are: 1. Folic acid 1 mg p.o. daily. 2. Ativan 1 mg t.i.d. p.r.n. 3. Lopressor 12.5 mg p.o. b.i.d. 4. Prilosec 20 mg daily. 5. Vitamin B 100 mg p.o. daily. Once again, the patient will be discharged in a stable condition with guarded prognosis. RICKIED
== END 2016-11-03 12:30 | disposition home or self-care (01) | DRG 439 ==
LOC: EC 15:59 → 6SEL 19:35 → 6ICU 11-02 07:39 → 5MS5E 11-02 17:51
PROVIDERS: ADMIT Hospitalist; ATTEND Hospitalist
DX: K85.20 Alcohol induced acute pancreatitis without necrosis or infection (principal); F10.231 Alcohol dependence with withdrawal delirium; G40.509 Epileptic seizures related to external causes, not intractable, without status epilepticus; D69.6 Thrombocytopenia, unspecified; E83.42 Hypomagnesemia; K70.10 Alcoholic hepatitis without ascites; R07.89 Other chest pain; D72.819 Decreased white blood cell count, unspecified; E87.6 Hypokalemia; F10.229 Alcohol dependence with intoxication, unspecified; F17.200 Nicotine dependence, unspecified, uncomplicated; F32.9 Major depressive disorder, single episode, unspecified; F40.240 Claustrophobia; F41.0 Panic disorder [episodic paroxysmal anxiety]; J44.9 Chronic obstructive pulmonary disease, unspecified; M19.90 Unspecified osteoarthritis, unspecified site; F41.9 Anxiety disorder, unspecified; R41.82 Altered mental status, unspecified; T42.4X5A Adverse effect of benzodiazepines, initial encounter; K76.9 Liver disease, unspecified; Z79.899 Other long term (current) drug therapy; Z91.19 Patient's noncompliance with other medical treatment and regimen; Z85.9 Personal history of malignant neoplasm, unspecified; Z88.5 Allergy status to narcotic agent; Y92.239 Unspecified place in hospital as the place of occurrence of the external cause; Y90.8 Blood alcohol level of 240 mg/100 ml or more
CPT/HCPCS: 36415; 71020; 80048; 80053; 80061; 80320; 81001; 82150; 82550; 82553; 83690; 83735; 83880; 84100; 84132; 84484; 85025; 85610; 85730; 93005; 93306; 96361; 96365; 96366; 96368; 96372; 96375; 96376; 99285

== ENCOUNTER 2016-11-30 14:07 | Inpatient (IN) | payer OTHER ==
[2016-11-30] MEDS ORDERED: SODIUM CHLORIDE 0.9% 1,000 ML IV STA (14:45)
[2016-11-30] MEDS ORDERED: LORazepam 2 MG/ML SYRINGE IV STA (14:45)
--- NOTE | 2016-11-30 14:51 | ED ---
General Adult HPI - General Chief complaint: Chest Pain Stated complaint: SOB/Chest Pain/Alcohol Withdrawal Time Seen by Provider: 11/30/16 14:34 Source: patient, RN notes reviewed Mode of arrival: EMS Limitations: no limitations - History of Present Illness Initial comments: Patient is a pleasant 46-year-old male presenting to the emergency department with complaints of alcohol withdrawal. Patient has had symptoms more times and he can count. Patient has been decreasing alcohol intake and last intake was around 11 AM. Symptoms started around 10 AM. Patient is sharp chest discomfort. Patient does feel somewhat short of breath. Patient is nauseous and shaky. Symptoms are similar to previous alcohol withdrawal - Related Data Home Medications Medication Instructions Recorded Confirmed Omeprazole [PriLOSEC] 20 mg PO DAILY 11/01/16 11/30/16 Previous Rx's Medication Instructions Recorded Folic Acid 1 mg PO DAILY #30 tablet 11/03/16 LORazepam [Ativan] 1 mg PO TID PRN #20 tab 11/03/16 Metoprolol Tartrate [Lopressor] 12.5 mg PO BID #60 tab 11/03/16 Thiamine [Vitamin B-1] 100 mg PO DAILY #30 tab 11/03/16 Allergies Allergy/AdvReac Type Severity Reaction Status Date / Time hydrocodone bitartrate Allergy Itching Verified 11/30/16 16:08 [From Vicodin] Review of Systems ROS Statement: Those systems with pertinent positive or pertinent negative responses have been documented in the HPI. ROS Other: All systems not noted in ROS Statement are negative. Constitutional: Denies: fever Eyes: Denies: eye pain ENT: Denies: ear pain Respiratory: Reports: dyspnea. Denies: cough Cardiovascular: Reports: chest pain, palpitations Endocrine: Reports: fatigue Gastrointestinal: Reports: abdominal pain, nausea Genitourinary: Denies: urgency Musculoskeletal: Denies: back pain Skin: Denies: rash Neurological: Denies: weakness Psychiatric: Reports: anxiety Past Medical History Past Medical History: Cancer, Deep Vein Thrombosis (DVT), Pneumonia, Seizure Disorder, Skin Disorder Additional Past Medical History / Comment(s): CHRONIC ALCOHOLIC SEIZURES R/T WITHDRAWLS, NECROTIZING FASCIITIS RT HAND WAS HOSPITALIZED 53 DAYS ( 2010 )- WAS ON BEDREST -DEVELOPED DVT'S , C-DIFF APPROX 4 YEARS AGO. BROKEN NOSE(HAD SX) , PANCREATITIS. History of Any Multi-Drug Resistant Organisms: C-DIFF Date of last positivie culture/infection: 2010 MDRO Source:: bowel Past Surgical History: Orthopedic Surgery Additional Past Surgical History / Comment(s): SKIN GRAFT DONE ON RIGHT HAND/ SKIN WAS TAKEN FROM HIS RT THIGH, PT STATED" HAS A STENT OR FILTER TO STOP BLOOD CLOTS FROM GOING TO HIS HEART: SX TO REPAIR BROKEN NOSE. DISLOCATED RT SHOULDER REPAIRED. Past Anesthesia/Blood Transfusion Reactions: No Reported Reaction Additional Past Anesthesia/Blood Transfusion Reaction / Comment(s): CLAUSTERPHOBIA Past Psychological History: Anxiety, Depression, Panic Disorder Additional Psychological History / Comment(s): Pt states was in [employer]; denies PTSD Smoking Status: Current every day smoker Past Alcohol Use History: Abuse, Daily Additional Past Alcohol Use History / Comment(s): STARTED SMOKING AT AGE 20- SMOKES 1/2 PPD.PT STATED HE DRINKS DAILY A FIFTH OF VODKA.DENIES PAST OR CURRENT DRUG USE. Past Drug Use History: None Reported - Past Family History Father Family Medical History: Cancer Additional Family Medical History / Comment(s): MULTIPLE MYELOMA. 2006 Mother Family Medical History: Cancer Additional Family Medical History / Comment(s): BREAST CANCER, STILL LIVING General Exam Limitations: no limitations General appearance: alert, other (Resting tremor) Head exam: Present: atraumatic, normocephalic Eye exam: Present: normal appearance, PERRL ENT exam: Present: normal oropharynx Neck exam: Present: normal inspection Respiratory exam: Present: normal lung sounds bilaterally. Absent: chest wall tenderness Cardiovascular Exam: Present: regular rate, normal rhythm Expanded Peripheral pulses: 2+: Radial (R), Radial (L), Posterior Tibialis (R), Posterior Tibialis (L) GI/Abdominal exam: Present: soft. Absent: distended, tenderness Extremities exam: Present: normal inspection. 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 WA 152. QRS 88. QT 406. QTc 468. Normal axis. Normal QRS. Normal ST-T. Medical Decision Making - Medical Decision Making Patient reevaluated and updated. Case discussed with Dr. Moya, who will admit for hospital call. - Lab Data Result diagrams: 11/30/16 15:10 11/30/16 15:10 Lab Results 11/30/16 11/30/16 11/30/16 Range/Units 15:10 15:10 15:10 WBC 2.6 L (3.8-10.6) k/uL RBC 3.83 L (4.30-5.90) m/uL Hgb 14.7 (13.0-17.5) gm/dL Hct 41.1 (39.0-53.0) % MCV 107.2 H (80.0-100.0) fL MCH 38.4 H (25.0-35.0) pg MCHC 35.8 (31.0-37.0) g/dL RDW 14.9 (11.5-15.5) % Plt Count 72 L (150-450) k/uL Neutrophils % 43 % Lymphocytes % 43 % Monocytes % 8 % Eosinophils % 1 % Basophils % 1 % Neutrophils # 1.1 L (1.3-7.7) k/uL Lymphocytes # 1.1 (1.0-4.8) k/uL Monocytes # 0.2 (0-1.0) k/uL Eosinophils # 0.0 (0-0.7) k/uL Basophils # 0.0 (0-0.2) k/uL Macrocytosis Moderate PT (9.0-12.0) sec INR (<1.1) APTT (22.0-30.0) sec D-Dimer (<0.60) mg/L FEU Sodium 137 (137-145) mmol/L Potassium 3.0 L* (3.5-5.1) mmol/L Chloride 89 L (98-107) mmol/L Carbon Dioxide 31 H (22-30) mmol/L Anion Gap 17 mmol/L BUN 3 L (9-20) mg/dL Creatinine 0.68 (0.66-1.25) mg/dL Est GFR (MDRD) Af Amer >60 (>60 ml/min/1.73 sqM) Est GFR (MDRD) Non-Af >60 (>60 ml/min/1.73 sqM) Glucose 79 (74-99) mg/dL Calcium 8.7 (8.4-10.2) mg/dL Magnesium 1.7 (1.6-2.3) mg/dL Total Bilirubin 1.0 (0.2-1.3) mg/dL AST 541 H (17-59) U/L ALT 157 H (21-72) U/L Alkaline Phosphatase 115 (38-126) U/L Total Creatine Kinase 155 (55-170) U/L CK-MB (CK-2) 1.2 (0.0-2.4) ng/mL CK-MB (CK-2) Rel Index 0.8 Troponin I <0.012 (0.000-0.034) ng/mL Total Protein 7.2 (6.3-8.2) g/dL Albumin 4.1 (3.5-5.0) g/dL 11/30/16 Range/Units 15:10 WBC (3.8-10.6) k/uL RBC (4.30-5.90) m/uL Hgb (13.0-17.5) gm/dL Hct (39.0-53.0) % MCV (80.0-100.0) fL MCH (25.0-35.0) pg MCHC (31.0-37.0) g/dL RDW (11.5-15.5) % Plt Count (150-450) k/uL Neutrophils % % Lymphocytes % % Monocytes % % Eosinophils % % Basophils % % Neutrophils # (1.3-7.7) k/uL Lymphocytes # (1.0-4.8) k/uL Monocytes # (0-1.0) k/uL Eosinophils # (0-0.7) k/uL Basophils # (0-0.2) k/uL Macrocytosis PT 10.3 (9.0-12.0) sec INR 1.0 (<1.1) APTT 25.5 (22.0-30.0) sec D-Dimer 2.54 H (<0.60) mg/L FEU Sodium (137-145) mmol/L Potassium (3.5-5.1) mmol/L Chloride (98-107) mmol/L Carbon Dioxide (22-30) mmol/L Anion Gap mmol/L BUN (9-20) mg/dL Creatinine (0.66-1.25) mg/dL Est GFR (MDRD) Af Amer (>60 ml/min/1.73 sqM) Est GFR (MDRD) Non-Af (>60 ml/min/1.73 sqM) Glucose (74-99) mg/dL Calcium (8.4-10.2) mg/dL Magnesium (1.6-2.3) mg/dL Total Bilirubin (0.2-1.3) mg/dL AST (17-59) U/L ALT (21-72) U/L Alkaline Phosphatase (38-126) U/L Total Creatine Kinase (55-170) U/L CK-MB (CK-2) (0.0-2.4) ng/mL CK-MB (CK-2) Rel Index Troponin I (0.000-0.034) ng/mL Total Protein (6.3-8.2) g/dL Albumin (3.5-5.0) g/dL - Radiology Data Radiology results: report reviewed (CT angiogram of the chest shows no evidence of pulmonary embolism.), image reviewed (Two-view chest x-ray shows no acute process.) Disposition Clinical Impression: Chest pain, Alcohol withdrawal, Thrombocytopenia Disposition: ADMITTED IP TO THIS [facility] Referrals: Lizabeth Burgess MD [Primary Care Provider] - 1-2 days Time of Disposition: 17:08
[2016-11-30 15:32] LABS: ALT 157 U/L (21-72); AST 541 U/L (17-59); Alkaline Phosphatase 115 U/L (38-126); Anion Gap 17 mmol/L; Blood Urea Nitrogen 3 mg/dL (9-20); Calcium 8.7 mg/dL (8.4-10.2); Carbon Dioxide 31 mmol/L (22-30); Chloride 89 mmol/L (98-107); Glucose 79 mg/dL (74-99); Magnesium 1.7 mg/dL (1.6-2.3); Non-African American GFR(MDRD) >60 (>60 ml/min/1.73 sqM); Sodium 137 mmol/L (137-145); Total Protein 7.2 g/dL (6.3-8.2)
[2016-11-30 15:37] LABS: Basophils % (A) 1 %; CH 37.8; CHCM 35.5; Eosinophils % (A) 1 %; HCT 41.1 % (39.0-53.0); HDW 2.31; HGB 14.7 gm/dL (13.0-17.5); Luc # (Auto) 0.11; Luc % (Auto) 4; Lymphocytes # (A) 1.1 k/uL (1.0-4.8); Lymphocytes % (A) 43 %; MCH 38.4 pg (25.0-35.0); MCHC 35.8 g/dL (31.0-37.0); MCV 107.2 fL (80.0-100.0); Macrocytosis Moderate; Mean Platelet Volume 7.8; Monocytes # (A) 0.2 k/uL (0-1.0); Monocytes % (A) 8 %; Neutrophils # (A) 1.1 k/uL (1.3-7.7); Neutrophils % (A) 43 %; RBC 3.83 m/uL (4.30-5.90); RDW 14.9 % (11.5-15.5); WBC 2.6 k/uL (3.8-10.6); WBC (Perox) 2.68
[2016-11-30 15:42] LABS: Creatine Kinase 155 U/L (55-170)
[2016-11-30 15:48] LABS: Partial Thromboplastin Time 25.5 sec (22.0-30.0); Prothrombin Time 10.3 sec (9.0-12.0)
[2016-11-30] MEDS ORDERED: ONDANSETRON 4 MG/2 ML VIAL IVP STA (15:48)
--- NOTE | 2016-11-30 15:53 | XR ---
EXAMINATION TYPE: XR chest 2V DATE OF EXAM: 11/30/2016 COMPARISON: Chest x-ray November 01, 2016 HISTORY: Chest pain. TECHNIQUE: Frontal and lateral views of the chest are obtained. FINDINGS: Underlying emphysematous changes felt present. There is no focal air space opacity, pleura l effusion, or pneumothorax seen. The cardiac silhouette size is within normal limits. The osseous structures are intact. IVC filter is partially imaged in the upper abdomen on lateral view. IMPRESSION: No acute cardiopulmonary process.
[2016-11-30 15:55] LABS: Creatine Kinase MB 1.2 ng/mL (0.0-2.4); Troponin I <0.012 ng/mL (0.000-0.034)
[2016-11-30] MEDS ORDERED: RX INFO: IV CONTRAST WAS GIVEN 1 EACH MISC MISCELLANE PRN (16:15)
--- NOTE | 2016-11-30 17:04 | CT ---
EXAMINATION TYPE: CT angio chest DATE OF EXAM: 11/30/2016 4:53 PM COMPARISON: 09/26/2014 HISTORY: SOB AND CHEST PAINS. CT DLP: 148.7 mGycm Automated exposure control for dose reduction was used. CONTRAST: CTA scan of the thorax is performed with IV Contrast, patient injected with 70 mL of Omnipaque 350, p ulmonary embolism protocol. There are 3-D post processed images.. FINDINGS: The lungs are clear of consolidation. There is pulmonary hyperinflation consistent with some degree o f COPD. There is no pleural effusion. There is fatty infiltration of the liver. Heart size is normal. There is no pericardial effusion. I see no filling defects in the pulmonary art eries. Ascending aorta measures 3.1 cm. There is no evidence of aneurysm or dissection. There is no m ediastinal adenopathy. There are no hilar masses. There is mild anterior wedging of several lower tho racic and upper lumbar vertebra. There is 20% wedging of T7 vertebra as well. Vena cava filter is not ed. IMPRESSION: NO EVIDENCE OF PULMONARY EMBOLISM. COPD. MULTIPLE COMPRESSION FRACTURES. FATTY INFILTRATION OF THE LIVER THERE IS CLEARING OF THE PATCHY BILATERAL PULMONARY INFILTRATES COMPARED TO OLD CT SCAN. COMPRESSION FRACTURES IN THE SPINE ARE SIMILAR TO OLD EXAM..
[2016-11-30] MEDS ORDERED: NITROGLYCERIN SL TABS 0.4 MG TAB SUBLINGUAL PRN (17:08)
[2016-11-30] MEDS ORDERED: THIAMINE 100 MG/ML 2 ML VIAL IM STA (17:09)
[2016-11-30] MEDS ORDERED: LORazepam 2 MG/ML SYRINGE IV PRN (17:09)
[2016-11-30] MEDS: LORazepam 2 MG/ML SYRINGE IV PRN ×5 (17:37→23:33)
[2016-11-30] MEDS: DEXTROSE 5%-0.45% NACL 1,000 ML IV SCH (17:42)
[2016-11-30] MEDS: THIAMINE 100 MG TAB PO SCH (17:43)
[2016-11-30] MEDS: NITROGLYCERIN OINT 1 INCH/GM PACKET TOPICAL SCH ×2 (18:28→23:37)
[2016-11-30] MEDS ORDERED: Potassium Replacement Protocol 1 EACH MISC MISCELLANE PRN (19:39)
[2016-11-30] MEDS: POTASSIUM CHLORIDE ER 20 MEQ TAB.ER PO SCH ×3 (20:38→22:15)
[2016-11-30] MEDS ORDERED: cloNIDine HCL 0.1 MG TAB PO PRN (22:05)
[2016-11-30 22:17] LABS: Creatine Kinase MB 0.9 ng/mL (0.0-2.4); Troponin I 0.012 ng/mL (0.000-0.034)
[2016-12-01 00:26] LABS: Appearance,Urine Clear (Clear); Bilirubin,Urine Negative (Negative); Glucose,Urine (UA) Negative (Negative); Ketones,Urine Negative (Negative); Leukocyte Esterase,Urine Negative (Negative); Nitrite,Urine Negative (Negative); Particle Count 1133; Protein,Urine 1+ (Negative); RBC,Urine 6 /hpf (0-5); UA Billing (MACRO vs. MICRO) MICRO; WBC,Urine 3 /hpf (0-5)
[2016-12-01 00:36] LABS: Specific Gravity,Urine >1.050 (1.001-1.035)
[2016-12-01] MEDS ORDERED: POTASSIUM CHLORIDE 20 MEQ, LIDOCAINE 2% INJ 20 MG in SODIUM CHLORIDE 0.9% 100 ML IVPB ONE (00:56)
[2016-12-01] MEDS: POTASSIUM CHLORIDE 10 MEQ, LIDOCAINE 2% INJ 10 MG in SODIUM CHLORIDE 0.9% 100 ML IVPB SCH ×2 (01:43→02:49)
[2016-12-01] MEDS: LORazepam 2 MG/ML SYRINGE IV PRN ×15 (01:57→22:53)
[2016-12-01 04:27] LABS: ALT 133 U/L (21-72); AST 330 U/L (17-59); Alkaline Phosphatase 101 U/L (38-126); Anion Gap 9 mmol/L; Blood Urea Nitrogen 6 mg/dL (9-20); Calcium 8.6 mg/dL (8.4-10.2); Carbon Dioxide 30 mmol/L (22-30); Chloride 96 mmol/L (98-107); Cholesterol 215 mg/dL (<200); Glucose 115 mg/dL (74-99); Magnesium 1.6 mg/dL (1.6-2.3); Non-African American GFR(MDRD) >60 (>60 ml/min/1.73 sqM); Potassium 4.1 mmol/L (3.5-5.1); Sodium 135 mmol/L (137-145); Total Bilirubin 1.3 mg/dL (0.2-1.3); Total Protein 6.2 g/dL (6.3-8.2); Triglycerides 42 mg/dL (<150)
[2016-12-01 04:30] LABS: Creatine Kinase 94 U/L (55-170)
[2016-12-01 04:34] LABS: HDL Cholesterol 160 mg/dL (40-60)
[2016-12-01 04:38] LABS: Basophils % (A) 1 %; CH 37.8; CHCM 32.9; Eosinophils % (A) 1 %; HCT 41.6 % (39.0-53.0); HDW 2.15; HGB 13.5 gm/dL (13.0-17.5); Luc # (Auto) 0.06; Luc % (Auto) 2; Lymphocytes # (A) 0.8 k/uL (1.0-4.8); Lymphocytes % (A) 29 %; MCH 37.6 pg (25.0-35.0); MCHC 32.5 g/dL (31.0-37.0); MCV 115.6 fL (80.0-100.0); Macrocytosis Marked; Mean Platelet Volume 8.3; Monocytes # (A) 0.2 k/uL (0-1.0); Monocytes % (A) 6 %; Neutrophils # (A) 1.6 k/uL (1.3-7.7); Neutrophils % (A) 60 %; RBC 3.59 m/uL (4.30-5.90); RDW 15.4 % (11.5-15.5); WBC 2.6 k/uL (3.8-10.6); WBC (Perox) 2.38
[2016-12-01 04:43] LABS: Creatine Kinase MB 0.5 ng/mL (0.0-2.4); Troponin I <0.012 ng/mL (0.000-0.034)
[2016-12-01 05:02] LABS: Manual Review Performed; Target Cells Present
[2016-12-01] MEDS: NITROGLYCERIN OINT 1 INCH/GM PACKET TOPICAL SCH (05:04)
[2016-12-01] MEDS: DEXTROSE 5%-0.45% NACL 1,000 ML IV SCH ×2 (06:11→19:42)
[2016-12-01] MEDS: PANTOPRAZOLE 40 MG TABLET PO SCH (06:42)
[2016-12-01] MEDS: METOPROLOL TARTRATE 12.5 MG TAB PO SCH ×2 (07:57→21:33)
[2016-12-01] MEDS ORDERED: HEPARIN SODIUM,PORCINE 5,000 UNIT/ML 1 ML VIAL SQ SCH (09:00)
--- NOTE | 2016-12-01 11:23 | P.CRDCN ---
History of Present Illness Consult date: 12/01/16 Requesting physician: Adalid Moya Consult reason: chest pain Chief complaint: Chest pain History of present illness: This is a 46-year-old gentleman with history of EtOH abuse, GERD, nicotine dependence, who presents to the hospital with symptoms of alcohol with withdrawal, he states that he has been drinking 3 large size appears a day, and he states that he puts Listerine and half of the Kang and drinks that as well. The last time he drank alcohol was 11:00 yesterday morning. He started getting extremely shaky, states that he had diarrhea stool with blood in it. Patient also states that every time he would try to take a deep breath he would get a sharp pain in his chest. For these reasons he came to the emergency room for further evaluation. Patient did have an echocardiogram with Doppler study performed last month which revealed a normal left ventricular systolic function. Dobutamine echo performed in March 2016 detail for any reversible ischemia. Troponins negative 3. Potassium on admission 3.0, 4.1 this morning. AST on admission 541, ALT 157, this morning ASt is 3:30 with an ALT of 133. Alk phos is normal. EKG shows normal sinus rhythm with inferior Q waves. EKGs are similar to those performed previously. White blood cell count 2.6, hemoglobin 13.5, MCV 115, PLT count 55. D-dimer 2.5. CT of the chest negative for pulmonary embolism. At the time of my examination this morning, patient is having a significant amount of tremors, extremely anxious. Denies any further chest discomfort. Past Medical History Past Medical History: Chest Pain / Angina, Deep Vein Thrombosis (DVT), Pneumonia , Seizure Disorder, Skin Disorder Additional Past Medical History / Comment(s): CHRONIC ALCOHOLIC SEIZURES R/T WITHDRAWLS, NECROTIZING FASCIITIS RT HAND WAS HOSPITALIZED 53 DAYS ( 2010 )- WAS ON BEDREST -DEVELOPED DVT'S , C-DIFF APPROX 4 YEARS AGO. BROKEN NOSE(HAD SX) , PANCREATITIS. History of Any Multi-Drug Resistant Organisms: None Reported Date of last positivie culture/infection: 2010 MDRO Source:: bowel Past Surgical History: Orthopedic Surgery Additional Past Surgical History / Comment(s): SKIN GRAFT DONE ON RIGHT HAND/ SKIN WAS TAKEN FROM HIS RT THIGH, PT STATED" HAS A STENT OR FILTER TO STOP BLOOD CLOTS FROM GOING TO HIS HEART: SX TO REPAIR BROKEN NOSE. DISLOCATED RT SHOULDER REPAIRED. Past Anesthesia/Blood Transfusion Reactions: No Reported Reaction Additional Past Anesthesia/Blood Transfusion Reaction / Comment(s): CLAUSTERPHOBIA Past Psychological History: Anxiety, Depression, Panic Disorder Additional Psychological History / Comment(s): Pt states was in [employer]; denies PTSD.HAS WORKED IN [employer]. PT LIVES ALONE IN A [place]-NO STEPS , NO PETS, NO OUTSIDE SERVIES, NO MEDICAL EQUIPMENT. Smoking Status: Current every day smoker Past Alcohol Use History: Abuse, Daily Additional Past Alcohol Use History / Comment(s): STARTED SMOKING AT AGE 20- SMOKED 1/2 PPD.BUT STATED DOWN TO 3 CIG PER DAY.PT STATED HE USUALLY DRINKS DAILY A FIFTH OF VODKA PER DAY BUT TODAY HE DRANK 3 TALL BEERS AND A 1/2 OF BOTTLE OF LISTERINE.. Past Drug Use History: None Reported - Past Family History Father Family Medical History: Cancer Additional Family Medical History / Comment(s): MULTIPLE MYELOMA. 2006 Mother Family Medical History: Cancer Additional Family Medical History / Comment(s): BREAST CANCER, STILL LIVING Medications and Allergies Home Medications Medication Instructions Recorded Confirmed Type Omeprazole [PriLOSEC] 20 mg PO DAILY 11/01/16 11/30/16 History Allergies Allergy/AdvReac Type Severity Reaction Status Date / Time hydrocodone bitartrate Allergy Itching Verified 11/30/16 16:08 [From Vicodin] Physical Exam Vitals: Vital Signs Temp Pulse Pulse Resp BP BP Pulse Ox 12/01/16 08:00 98.2 F 66 16 106/72 95 12/01/16 04:00 98.4 F 76 18 101/65 93 L 12/01/16 00:00 97.8 F 86 18 100/70 97 11/30/16 20:00 98.6 F 98 18 122/82 94 L 11/30/16 19:00 97.3 F L 85 18 105/71 94 L 11/30/16 17:34 91 20 123/75 96 11/30/16 16:59 68 16 124/93 98 11/30/16 16:02 70 16 123/84 11/30/16 15:09 77 20 119/82 97 11/30/16 14:32 98.3 F 81 89 16 128/80 96 11/30/16 14:09 98 F 94 18 107/81 95 Intake and Output 11/30/16 12/01/16 12/01/16 22:59 06:59 14:59 Intake Total 615 Output Total 200 400 Balance -200 215 Intake: Intake, IV Titration 225 Amount Dextrose 5%-0.45% NaCl 1, 225 000 ml @ 75 mls/hr IV . [id number] JOSLYN Rx#:[id number] Oral 390 Output: Urine 200 400 Other: Voiding Method Urinal Urinal # Voids 1 1 Weight 57.5 kg PHYSICAL EXAMINATION: HEENT: Head is atraumatic, normocephalic. Pupils equal, round. Neck is supple. There is no elevated jugular venous pressure. HEART EXAMINATION: Heart S1, S2 normal. No murmur or gallop heard. CHEST EXAMINATION: Lungs are clear to auscultation and precussion. No chest wall tenderness is noted on palpation or with deep breathing. ABDOMEN: Soft, nontender. Bowel sounds are heard. No organomegaly noted. EXTREMITIES: 2+ peripheral pulses with no evidence of peripheral edema and no calf tenderness noted. NEUROLOGIC patient is awake, alert and oriented -3. Significant tremor this morning. . Results 12/01/16 03:50 12/01/16 03:50 Cardiac Enzymes 11/30/16 11/30/16 11/30/16 Range/Units 15:10 15:10 21:25 AST 541 H (17-59) U/L CK-MB (CK-2) 1.2 0.9 (0.0-2.4) ng/mL Troponin I <0.012 0.012 (0.000-0.034) ng/mL 12/01/16 12/01/16 Range/Units 03:50 03:50 AST 330 H (17-59) U/L CK-MB (CK-2) 0.5 (0.0-2.4) ng/mL Troponin I <0.012 (0.000-0.034) ng/mL Coagulation 11/30/16 Range/Units 15:10 PT 10.3 (9.0-12.0) sec APTT 25.5 (22.0-30.0) sec Lipids 12/01/16 Range/Units 03:50 Triglycerides 42 (<150) mg/dL Cholesterol 215 H (<200) mg/dL HDL Cholesterol 160 H (40-60) mg/dL CBC 11/30/16 12/01/16 Range/Units 15:10 03:50 WBC 2.6 L 2.6 L (3.8-10.6) k/uL RBC 3.83 L 3.59 L (4.30-5.90) m/uL Hgb 14.7 13.5 (13.0-17.5) gm/dL Hct 41.1 41.6 (39.0-53.0) % Plt Count 72 L 55 L (150-450) k/uL Comprehensive Metabolic Panel 11/30/16 11/30/16 12/01/16 Range/Units 15:10 23:49 03:50 Sodium 137 135 L (137-145) mmol/L Potassium 3.0 L* 3.2 L 4.1 (3.5-5.1) mmol/L Chloride 89 L 96 L (98-107) mmol/L Carbon Dioxide 31 H 30 (22-30) mmol/L BUN 3 L 6 L (9-20) mg/dL Creatinine 0.68 0.80 (0.66-1.25) mg/dL Glucose 79 115 H (74-99) mg/dL Calcium 8.7 8.6 (8.4-10.2) mg/dL AST 541 H 330 H (17-59) U/L ALT 157 H 133 H (21-72) U/L Alkaline Phosphatase 115 101 (38-126) U/L Total Protein 7.2 6.2 L (6.3-8.2) g/dL Albumin 4.1 3.5 (3.5-5.0) g/dL Current Medications Generic Name Dose Route Start Last Admin Trade Name Freq PRN Reason Stop Dose Admin Clonidine 0.1 mg 11/30/16 22:05 Catapres PO Q4HR PRN Hypertension Folic Acid 1 mg 12/01/16 12:00 Folic Acid PO DAILY@1200 JOSLYN Heparin Sodium (Porcine) 5,000 unit 12/01/16 09:00 12/01/16 07:56 Heparin SQ 5,000 unit Q12HR JOSLYN Administration Dextrose/Sodium Chloride 1,000 mls @ 75 mls/hr 11/30/16 17:15 12/01/16 06:11 Dextrose 5%-1/2ns Iv Soln IV 75 mls/hr .[id number] JOSLYN Administration Lorazepam 1 mg 11/30/16 17:09 12/01/16 10:22 Ativan IV 1 mg Q2HR PRN Administration CIWA 8 or 9 Lorazepam 1 mg 11/30/16 17:09 12/01/16 06:42 Ativan IV 1 mg Q1HR PRN Administration CIWA 10 to 15 Lorazepam 2 mg 11/30/16 17:09 12/01/16 07:55 Ativan IV 2 mg Q1HR PRN Administration CIWA 16 or higher Lorazepam 2 mg 11/30/16 17:09 12/01/16 09:24 Ativan IV 2 mg Q6HR PRN Administration Seizures Metoprolol Tartrate 12.5 mg 12/01/16 09:00 12/01/16 07:57 Lopressor PO 12.5 mg BID JOSLYN Administration Miscellaneous Information 1 each 11/30/16 16:15 Rx Info: Iv Contrast Was Given MISCELLANE 12/02/16 16:15 DAILY PRN Per Protocol Miscellaneous Information 1 each 11/30/16 19:39 Potassium Per Protocol MISCELLANE DAILY PRN Per Protocol Protocol Multivitamins 1 each 12/01/16 12:00 Theragran PO DAILY@1200 [facility] Nitroglycerin 1 inch 11/30/16 18:00 12/01/16 05:04 Nitro-Bid Oint TOPICAL Not Given Q6HR [facility] Nitroglycerin 0.4 mg 11/30/16 17:08 Nitrostat SUBLINGUAL Q5M PRN Chest Pain Pantoprazole Sodium 40 mg 12/01/16 07:30 12/01/16 06:42 Protonix PO 40 mg [id number] JOSLYN Administration Sodium Chloride 10 ml 11/30/16 21:00 12/01/16 07:57 Saline Flush IV 10 ml BID JOSLYN Administration Thiamine HCl 100 mg 11/30/16 17:00 11/30/16 17:43 Vitamin B-1 PO Not Given BID@1200,1700 JOSLYN Intake and Output 11/30/16 12/01/16 12/01/16 22:59 06:59 14:59 Intake Total 615 Output Total 200 400 Balance -200 215 Intake: Intake, IV Titration 225 Amount Dextrose 5%-0.45% NaCl 1, 225 000 ml @ 75 mls/hr IV . [id number] [facility] Rx#:[id number] Oral 390 Output: Urine 200 400 Other: Voiding Method Urinal Urinal # Voids 1 1 Weight 57.5 kg 12/01/16 03:50 12/01/16 03:50 EKG Interpretations (text) EKG shows normal sinus rhythm with inferior Q waves. Assessment and Plan Plan: Assessment and plan #1 as of atypical chest pain, pleuritic in nature. EKG shows normal sinus rhythm with nonspecific changes in the inferior leads, similar to prior EKGs. Troponins negative 3. #2 alcohol withdrawal #3 history of alcohol abuse #4 nicotine dependence #5 anxiety #6 GERD #7 abnormal renal function Plan Patient just had an echocardiogram with Doppler study performed in October of this year which revealed a normal left ventricular systolic function. Dobutamine echocardiographic study performed in March of last year negative for reversible ischemia. We will discontinue the patient's heparin. Discontinue Nitropaste. No further cardiac workup at this time. We'll discontinue the patient's telemetry. He may be able to be transferred to the medical surgical unit. We will follow him now on an as-needed basis only, please don't hesitate to call with any questions. DNP note has been reviewed, I agree with a documented findings and plan of care. Patient was seen and examined.
[2016-12-01 11:39] VITALS: BMI 20.5
[2016-12-01] MEDS: THIAMINE 100 MG TAB PO SCH ×2 (11:42→17:51)
[2016-12-01] MEDS: MULTIVITAMINS, THERA 1 EACH TAB PO SCH (11:42)
[2016-12-01] MEDS: FOLIC ACID 1 MG TAB PO SCH (11:42)
--- NOTE | 2016-12-01 12:58 | HP ---
DATE OF ADMISSION: The chief complaints are chest pain and alcohol withdrawal. HISTORY OF PRESENT ILLNESS: This 46-year-old gentleman with a past medical history significant to alcohol, history of DVT, history of pneumonia, seizure disorder, history of alcoholic seizures, history of anxiety, depression, panic disorder, history of claustrophobia, being followed Dr. Lizabeth Burgess in the outpatient setting, was taken to [place] emergency room with complaints of chest pain and some shortness of breath. The patient also had symptoms of alcohol withdrawal. Patient was tremulous and the patient's last alcohol drink was about 11 a.m. and the chest pain was sharp in character. The patient came to [facility] and patient has multiple lab abnormalities, mostly secondary to alcohol including hypokalemia, d-dimer was elevated to 0.54 and the patient also underwent a CT of the chest to rule out the possibility of acute pulmonary embolism and CTA showed no evidence of pulmonary embolism, multiple compression fractures and bilateral infiltrates in the CAT scan seen previously has been cleared. There is no history of fever, rigors or chills. CIWA protocol has been initiated. No history of hematochezia or melena at this time. PAST MEDICAL HISTORY: History of DVT, history of pneumonia, seizure disorder, history of chronic alcoholism. History of DJD, anxiety, depression, panic disorder. Medications are: 1. Folic acid 1 mg p.o. daily. 2. Vitamin B 100 mg p.o. daily. 3. Prilosec 20 mg daily. 4. Lopressor 12.5 mg b.i.d. 5. Ativan 1 mg b.i.d. p.r.n. Allergies are HYDROCODONE. FAMILY HISTORY: History of cancer, multiple myeloma. SOCIAL HISTORY: History of smoking, history of alcohol intake. REVIEW OF SYSTEMS: ENT: No diminishing hearing. No diminished vision. CARDIOVASCULAR: No angina or palpitations. RESPIRATORY: As mentioned earlier. GI: No nausea. : No dysuria. NERVOUS SYSTEM: As mentioned earlier. ALLERGY/IMMUNOLOGY: No asthma or hayfever. MUSCULOSKELETAL: As mentioned earlier. HEMATOLOGY: No history of anemia. ENDOCRINE: No history of diabetes or hypothyroidism. CONSTITUTIONAL: Negative. DERMATOLOGY: Negative. PSYCHIATRY: As mentioned earlier. PHYSICAL EXAMINATION: Patient is alert and oriented x2. Pulse 85, blood pressure 105/71, respirations 18, temperature 97.4, pulse ox 94% on 2 L. HEENT: Conjunctivae normal, oral mucosa moist. NECK: No jugular venous distention. No carotid bruit, no lymph node enlargement. CARDIOVASCULAR SYSTEM: S1, S2, muffled, no S3, no S4. RESPIRATORY: Breath sounds diminished at the bases, bilateral scattered rhonchi and expiratory wheezing also present. ABDOMEN: Soft, nontender, no mass palpable. LEGS: No edema, no swelling. NERVOUS SYSTEM: Higher functions as mentioned earlier, moves all 4 limbs, no focal motor deficits. LYMPHATICS: No lymph node enlargement in the neck, axillae or groin. SKIN: No ulcer, rash, or bleeding. Labs are WBC is 2.6, hemoglobin is 14.7, MCV 107.2, sodium 137, potassium 3, AST is 541, ALT is 157. ASSESSMENT: 1. Acute alcohol withdrawal and acute delirium tremens. 2. Chest pain, possible musculoskeletal. 3. Leukopenia. 4. Increased MCV. 5. Thrombocytopenia, possibly secondary to alcohol. 6. Increased d-dimer with no evidence of pulmonary embolism. 7. Hyperkalemia. 8. Increased AST, ALT, possible alcoholic hepatitis. 9. History of deep venous thrombosis. 10. History of seizure disorder. Chronic alcoholic seizure disorder. 11. History of necrotizing fasciitis of the hand. 12. History of Clostridium difficile colitis. 13. History of pancreatitis. 14. History of claustrophobia. 15. History of anxiety, depression, panic disorder, not otherwise specified. 16. History of nicotine dependence. 17. Multiple complex vertebral fractures. 18. FULL CODE. RECOMMENDATION AND DISCUSSION: In this 46-year-old gentleman who presented with multiple complex medical issues, will monitor the patient closely. Continue with the current medication and symptomatic treatment. Recommend a CIWA protocol, supplement vitamins. Otherwise, monitor closely. Rule out myocardial infarction. Cardiology has been consulted for evaluation of chest pain and CAT scan showed. Will symptomatically treat the patient. She orders for details. Further recommendations to follow. A copy will be forwarded to Dr. Lizabeth Burgess who is the primary physician.
[2016-12-01] MEDS ORDERED: HALOPERIDOL LACTATE 5 MG/ML 1 ML VIAL IM PRN (14:16)
--- NOTE | 2016-12-01 20:16 | PN ---
DATE OF SERVICE: 11/30/2016 This 46 -year-old gentleman admitted with alcohol withdrawal and chest pain is being closely monitored. The patient has delirium tremens. The patient requires a significant amount of Ativan at this time. The patient is tremulous. The patient is confused. Cardiology is following the patient. Chest CT did not show acute pulmonary embolism. Past medical history reviewed. REVIEW OF SYSTEMS: CARDIOVASCULAR: As mentioned earlier. RESPIRATORY: As mentioned earlier. GI: No nausea or vomiting. : No dysuria. Nervous system: No focal deficits. CENTRAL NERVOUS SYSTEM: No numbness or weakness. Current medications are reviewed and include: 1. Catapres 0.1 p.o. b.i.d. 2. Folic acid 1 mg daily. 3. Haldol 5 mg q6h p.r.n. 4. Ativan 1 mg p.r.n. 6. Lopressor 12.5 mg b.i.d. 7. Multivitamins one p.o. daily. 8. Nitrostat 0.4 sublingual p.r.n. 9. Protonix 40 mg daily. 10. Thiamin 100 mg p.o. daily. PHYSICAL EXAMINATION: The patient is alert and oriented times three. Pulse 90, blood pressure 127/80, respiratory rate 98.8. Pulse ox 99% on room air. HEENT: Conjunctivae normal. NECK: No jugular venous distention. CARDIOVASCULAR: S1, S2 muffled. RESPIRATORY: Breath sounds diminished at the bases. Bilateral scattered rhonchi and crackles. ABDOMEN: Soft. Nontender. LEGS: No edema. No swelling. CENTRAL NERVOUS SYSTEM: Diffusely weak and tremulousness. No focal deficits. LABS: WBC 2.7, hemoglobin 13.4, sodium 130, potassium 4.1, AST, ALT 330 and 133. 160, UA noted. ASSESSMENT: 1. Acute alcohol withdrawal and acute delirium tremens. 2. Change in mental status, metabolic encephalopathy secondary to DTs. 3. Chest pain, possibly musculoskeletal chest pain, improved. 4. Leukopenia. 5. Increased mean corpuscular volume. 6. Severe hypokalemia improving. 7. Thrombocytopenia, possibly secondary to alcohol. 8. Increased d-dimer with no evidence of pulmonary embolism. 9. Increased AST, ALT, alkaline phosphatase, alcoholic hepatitis. 10. History of deep venous thrombosis. 11. Seizure disorder. Chronic alcoholic seizure disorder. 12. History of necrotitis fasciitis of the hand. 13. History of Clostridium difficile colitis and a history of pancreatitis. 14. History of claustrophobia. 15. History of anxiety, depression and panic disorder, no otherwise specified. 16. History of nicotine dependence. 17. Multiple complex medical vertebral factors. 18. FULL CODE. RECOMMENDATIONS AND DISCUSSION: In this 46-year-old gentleman who presented with multiple complex medical issues, we will monitor the patient closely, continue the current medications. Continue symptomatic treatment. Otherwise, at this time, I would recommend monitor lytes closely and Ativan p.r.n., Haldol p.r.n. otherwise, clonidine regimen. Hold if systolic pressure greater than 100 mm. Otherwise prognosis is guarded. Further recommendations to follow. See orders for details. The patient may be transferred out of telemetry bed. Discussed with the staff. ALFRED
[2016-12-01] MEDS: cloNIDine HCL 0.1 MG TAB PO SCH (21:33)
[2016-12-01] MEDS ORDERED: ONDANSETRON 4 MG/2 ML VIAL IVP PRN (22:25)
[2016-12-02] MEDS: LORazepam 2 MG/ML SYRINGE IV PRN ×11 (01:02→22:26)
[2016-12-02 07:31] LABS: Basophils % (A) 0 %; CH 37.7; CHCM 33.3; Eosinophils # (A) 0.1 k/uL (0-0.7); Eosinophils % (A) 3 %; HCT 39.1 % (39.0-53.0); HDW 2.24; HGB 12.7 gm/dL (13.0-17.5); Luc # (Auto) 0.08; Luc % (Auto) 3; Lymphocytes % (A) 40 %; MCH 36.9 pg (25.0-35.0); MCHC 32.5 g/dL (31.0-37.0); MCV 113.7 fL (80.0-100.0); Macrocytosis Marked; Mean Platelet Volume 8.6; Monocytes # (A) 0.2 k/uL (0-1.0); Monocytes % (A) 7 %; Neutrophils # (A) 1.2 k/uL (1.3-7.7); Neutrophils % (A) 47 %; RBC 3.44 m/uL (4.30-5.90); RDW 15.1 % (11.5-15.5); WBC 2.5 k/uL (3.8-10.6); WBC (Perox) 2.45
[2016-12-02] MEDS: METOPROLOL TARTRATE 12.5 MG TAB PO SCH ×2 (08:23→20:54)
[2016-12-02] MEDS: PANTOPRAZOLE 40 MG TABLET PO SCH (08:23)
[2016-12-02] MEDS: cloNIDine HCL 0.1 MG TAB PO SCH ×2 (08:23→20:54)
[2016-12-02 09:12] LABS: ALT 88 U/L (21-72); AST 135 U/L (17-59); Alkaline Phosphatase 82 U/L (38-126); Anion Gap 5 mmol/L; Blood Urea Nitrogen 6 mg/dL (9-20); Calcium 8.9 mg/dL (8.4-10.2); Carbon Dioxide 27 mmol/L (22-30); Chloride 104 mmol/L (98-107); Glucose 105 mg/dL (74-99); Non-African American GFR(MDRD) >60 (>60 ml/min/1.73 sqM); Potassium 3.7 mmol/L (3.5-5.1); Sodium 136 mmol/L (137-145); Total Bilirubin 1.1 mg/dL (0.2-1.3); Total Protein 5.9 g/dL (6.3-8.2)
[2016-12-02] MEDS: THIAMINE 100 MG TAB PO SCH ×2 (11:45→17:16)
[2016-12-02] MEDS: MULTIVITAMINS, THERA 1 EACH TAB PO SCH (11:45)
[2016-12-02] MEDS: FOLIC ACID 1 MG TAB PO SCH (11:46)
[2016-12-02] MEDS: DEXTROSE 5%-0.45% NACL 1,000 ML IV SCH (13:09)
[2016-12-02 16:36] VITALS: RESP 16
[2016-12-03] MEDS: LORazepam 2 MG/ML SYRINGE IV PRN ×5 (03:07→12:35)
[2016-12-03] MEDS: DEXTROSE 5%-0.45% NACL 1,000 ML IV SCH (05:50)
[2016-12-03 07:30] LABS: Basophils % (A) 1 %; CH 37.3; CHCM 33.4; Eosinophils # (A) 0.1 k/uL (0-0.7); Eosinophils % (A) 2 %; HCT 38.1 % (39.0-53.0); HDW 2.43; HGB 12.8 gm/dL (13.0-17.5); Luc # (Auto) 0.11; Luc % (Auto) 4; Lymphocytes # (A) 0.8 k/uL (1.0-4.8); Lymphocytes % (A) 30 %; MCH 37.7 pg (25.0-35.0); MCHC 33.7 g/dL (31.0-37.0); Macrocytosis Marked; Mean Platelet Volume 8.8; Monocytes # (A) 0.2 k/uL (0-1.0); Monocytes % (A) 9 %; Neutrophils # (A) 1.5 k/uL (1.3-7.7); Neutrophils % (A) 55 %; RDW 14.7 % (11.5-15.5); WBC 2.7 k/uL (3.8-10.6); WBC (Perox) 2.84
[2016-12-03 07:37] LABS: ALT 93 U/L (21-72); AST 149 U/L (17-59); Alkaline Phosphatase 74 U/L (38-126); Anion Gap 4 mmol/L; Blood Urea Nitrogen 9 mg/dL (9-20); Calcium 8.9 mg/dL (8.4-10.2); Carbon Dioxide 24 mmol/L (22-30); Chloride 108 mmol/L (98-107); Glucose 99 mg/dL (74-99); Non-African American GFR(MDRD) >60 (>60 ml/min/1.73 sqM); Potassium 3.8 mmol/L (3.5-5.1); Sodium 136 mmol/L (137-145); Total Bilirubin 0.7 mg/dL (0.2-1.3); Total Protein 5.7 g/dL (6.3-8.2)
[2016-12-03 08:01] VITALS: BP 119/84; PULSE 46; TEMP 97.4
[2016-12-03 08:13] LABS: Polychromasia Present
[2016-12-03] MEDS: PANTOPRAZOLE 40 MG TABLET PO SCH (08:15)
[2016-12-03] MEDS: METOPROLOL TARTRATE 12.5 MG TAB PO SCH (08:17)
[2016-12-03] MEDS: cloNIDine HCL 0.1 MG TAB PO SCH (08:17)
--- NOTE | 2016-12-03 08:37 | PN ---
DATE OF SERVICE: 12/02/2016 This 46-year-old gentleman who was admitted with acute alcohol withdrawal also change in mental status, no chest pain, no palpitations, no fever. Patient still mildly confused. On exam, pulse 53, blood pressure 113/75, respiratory rate 16, temperature 98.4, pulse ox 97% on room air. HEENT: Conjunctivae normal. NECK: No jugular venous distention. CARDIOVASCULAR: S1, S2 muffled. RESPIRATORY: Breath sounds diminished at the bases. A few scattered rhonchi and crackles. ABDOMEN: Soft, nontender. LEGS: No edema. No swelling. CENTRAL NERVOUS SYSTEM: Diffuse tremors present. LABS: WBC 2.5, hemoglobin 12.7, platelets are 42. Sodium 136. Other labs are noted. UA is noted. ASSESSMENT: 1. Acute alcohol withdrawal and acute delirium tremens. 2. Change in mental status, metabolic encephalopathy secondary to delirium tremens. 3. Chest pain, possible musculoskeletal chest pain, improved. 4. Leukopenia secondary to alcohol. 5. Increased MCV. 6. Severe hyperkalemia improving. 7. Thrombocytopenia, possibly secondary to alcohol. 8. Increased d-dimer with no evidence of pulmonary embolism. 9. Increased AST and ALT, alkaline phosphatase, alcoholic hepatitis. 10. History of deep venous thrombosis. 11. Seizure disorder, chronic alcohol seizure disorder. 12. History of necrotic fasciitis of the hand. 13. History of Clostridium difficile colitis. 14. History of pancreatitis. 15. History of claustrophobia. 16. History of anxiety, depression, panic disorder, not otherwise specified. 17. History of nicotine dependence. 18. Multiple complex vertebral fractures. 19. FULL CODE STATUS. RECOMMENDATIONS AND DISCUSSION: Recommend to continue current medications. Current symptomatic treatment. Otherwise, at this time, continue the Ativan CIWA protocol. Guarded prognosis because of multiple complex medical issues. Further recommendations to follow. MTDD
--- NOTE | 2016-12-04 21:31 | DS ---
DATE OF ADMISSION: 11/30/2016 DATE OF DISCHARGE: 12/03/2016 FINAL DIAGNOSES: 1. Acute alcohol withdrawal and acute delirium tremens. 2. Change in mental status, metabolic encephalopathy secondary to delirium tremens. 3. Chest pain, possibly musculoskeletal, improved. 4. Leukopenia secondary to alcohol. 5. Increased MCV. 6. Severe hyperkalemia, improving. 7. Thrombocytopenia, possibly secondary to alcohol. 8. Increased d-dimer, no evidence of pulmonary embolism. 9. Increased AST and ALT. 10. Alkaline phosphatase. 11. Alcoholic hepatitis. 12. History of deep venous thrombosis. 13. History of seizure disorder. Chronic alcoholic seizure disorder. 14. History of necrotizing fasciitis of the hand. 15. History of Clostridium difficile colitis. 16. History of pancreatitis. 17. History of claustrophobia. 18. History of anxiety, depression. 19. Panic disorder, not otherwise specified. 20. History of nicotine dependence. 21. Multiple complex vertebral fractures. 22. FULL CODE. DISCHARGE DISPOSITION: The patient will be discharged in a stable condition with guarded prognosis. HISTORY OF PRESENT ILLNESS: This 46 -year-old gentleman with a past medical history of multiple medical problems, admitted with acute alcohol withdrawal and delirium tremens. Multiple other complex medical issues complications, treated symptomatically. Patient improved significantly. Cardiology also consulted and CT was negative for pulmonary embolism. Recommended the patient to follow up primary physician closely and as well as AA and rehab as well. On exam, vitals are stable. CARDIOVASCULAR: S1, S2 muffled. Abdomen soft. Central nervous system: No focal deficits. DISCHARGE ADVICE AND MEDICATIONS: 1. Discharge diet is cardiac. 2. Activity limited until follow-up. 3. Follow up with Dr. Lizabeth Burgess in 2 to 3 days. 4. Medications are as follows: Clonidine 0.1. p.o. b.i.d. 5. Folic acid 1 mg daily. 6. Ativan 1 mg q.i.d. p.r.n. 7. Lopressor 12.5 milligrams b.i.d. 8. Multivitamin one p.o. daily. 9. Prilosec 20 mg daily. 10. Vitamin B1 and thiamin one p.o. daily. Once again the patient will be discharged in a stable condition with guarded prognosis. MTDD
== END 2016-12-03 13:50 | disposition home or self-care (01) | DRG 896 ==
LOC: EC 14:07 → 6SEL 17:08 → 5MS5E 12-01 20:16
PROVIDERS: ADMIT Hospitalist; ATTEND Hospitalist
PROC: HZ2ZZZZ Detoxification Services for Substance Abuse Treatment (ICD-10-PCS; principal; 2016-11-30)
DX: F10.231 Alcohol dependence with withdrawal delirium (principal); G93.41 Metabolic encephalopathy; K70.10 Alcoholic hepatitis without ascites; D69.59 Other secondary thrombocytopenia; G40.509 Epileptic seizures related to external causes, not intractable, without status epilepticus; R74.8 Abnormal levels of other serum enzymes; R07.89 Other chest pain; D72.818 Other decreased white blood cell count; M19.90 Unspecified osteoarthritis, unspecified site; R53.1 Weakness; F41.9 Anxiety disorder, unspecified; E87.6 Hypokalemia; R94.4 Abnormal results of kidney function studies; F41.0 Panic disorder [episodic paroxysmal anxiety]; R94.31 Abnormal electrocardiogram [ECG] [EKG]; K21.9 Gastro-esophageal reflux disease without esophagitis; F32.9 Major depressive disorder, single episode, unspecified; F40.240 Claustrophobia; F17.210 Nicotine dependence, cigarettes, uncomplicated; Z86.718 Personal history of other venous thrombosis and embolism; Z80.7 Family history of other malignant neoplasms of lymphoid, hematopoietic and related tissues; Z87.01 Personal history of pneumonia (recurrent); Z79.899 Other long term (current) drug therapy; Z80.3 Family history of malignant neoplasm of breast; Z88.5 Allergy status to narcotic agent; Z87.19 Personal history of other diseases of the digestive system; Z86.19 Personal history of other infectious and parasitic diseases; Z87.81 Personal history of (healed) traumatic fracture; Z71.3 Dietary counseling and surveillance; Z87.2 Personal history of diseases of the skin and subcutaneous tissue; Z87.39 Personal history of other diseases of the musculoskeletal system and connective tissue; Z87.311 Personal history of (healed) other pathological fracture
CPT/HCPCS: 36415; 71020; 71275; 80053; 80061; 81001; 82075; 82550; 82553; 83735; 84132; 84484; 85025; 85379; 85610; 85730; 93005; 96361; 96372; 96374; 96375; 96376; 99285

== ENCOUNTER 2016-12-09 06:38 | Observation (INO) | payer OTHER ==
[2016-12-09] MEDS ORDERED: SODIUM CHLORIDE 0.9% 500 ML IV STA (07:32)
[2016-12-09] MEDS ORDERED: LORazepam 2 MG/ML SYRINGE IV STA (07:32)
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
[2016-12-09 07:48] LABS: Amorphous Sediment,Urine Rare /hpf; Appearance,Urine Cloudy (Clear); Bilirubin,Urine Negative (Negative); Glucose,Urine (UA) Negative (Negative); Ketones,Urine Negative (Negative); Leukocyte Esterase,Urine Negative (Negative); Nitrite,Urine Negative (Negative); Particle Count 4945; Protein,Urine Trace (Negative); RBC,Urine 1 /hpf (0-5); Squamous Epithelial Cell,Urine <1 /hpf (0-4); UA Billing (MACRO vs. MICRO) MICRO; WBC,Urine 1 /hpf (0-5)
[2016-12-09 07:51] LABS: Basophils % (A) 1 %; CH 38.2; CHCM 33.6; Eosinophils # (A) 0.1 k/uL (0-0.7); Eosinophils % (A) 2 %; HCT 44.3 % (39.0-53.0); HDW 2.29; HGB 14.4 gm/dL (13.0-17.5); Immature Gran Flag Marked; Luc # (Auto) 0.16; Luc % (Auto) 4; Lymphocytes # (A) 1.2 k/uL (1.0-4.8); Lymphocytes % (A) 30 %; MCH 37.2 pg (25.0-35.0); MCHC 32.6 g/dL (31.0-37.0); MCV 114.2 fL (80.0-100.0); Macrocytosis Marked; Mean Platelet Volume 8.2; Monocytes # (A) 0.3 k/uL (0-1.0); Monocytes % (A) 7 %; Neutrophils # (A) 2.3 k/uL (1.3-7.7); Neutrophils % (A) 56 %; RBC 3.87 m/uL (4.30-5.90); RDW 14.9 % (11.5-15.5); WBC (Perox) 3.97
--- NOTE | 2016-12-09 08:05 | CT ---
EXAMINATION TYPE: CT brain wo con DATE OF EXAM: 12/09/2016 COMPARISON: 09/23/2015, 02/12/2016 HISTORY: seizure CT DLP: 1024.5 mGycm. Automated Exposure Control for Dose Reduction was Utilized. TECHNIQUE: CT scan of the head is performed without contrast. FINDINGS: There is no acute intracranial hemorrhage, mass effect, or midline shift identified. The ventricles and sulci are within normal limits in size. The globes are intact and the visualized sin uses are clear. Faint periventricular attenuation is nonspecific. IMPRESSION: No acute intracranial hemorrhage, mass effect, or midline shift is seen.
[2016-12-09 08:25] LABS: Manual Review Performed
[2016-12-09 08:35] LABS: ALT 107 U/L (21-72); AST 82 U/L (17-59); Alcohol <10 mg/dL; Alkaline Phosphatase 79 U/L (38-126); Anion Gap 11 mmol/L; Blood Urea Nitrogen 6 mg/dL (9-20); Carbon Dioxide 25 mmol/L (22-30); Chloride 101 mmol/L (98-107); Glucose 129 mg/dL (74-99); Non-African American GFR(MDRD) >60 (>60 ml/min/1.73 sqM); Potassium 3.6 mmol/L (3.5-5.1); Sodium 137 mmol/L (137-145); Total Bilirubin 0.8 mg/dL (0.2-1.3); Total Protein 6.7 g/dL (6.3-8.2)
[2016-12-09] MEDS ORDERED: NALOXONE 0.4 MG/ML 1 ML VIAL IV PRN (09:39)
[2016-12-09] MEDS ORDERED: LORazepam 2 MG/ML SYRINGE IV PRN ×4 (09:41)
[2016-12-09] MEDS ORDERED: THIAMINE 100 MG/ML 2 ML VIAL IM STA (09:41)
[2016-12-09 10:47] VITALS: BMI 20.9
[2016-12-09] MEDS: LORazepam 1 MG TAB PO PRN ×3 (11:40→22:09)
[2016-12-09] MEDS: MULTIVITAMINS, THERA 1 EACH TAB PO SCH (11:40)
--- NOTE | 2016-12-09 13:43 | CONS ---
DATE OF CONSULTATION: Mr. Schafer a 46-year-old male with known history of alcoholism and seizure who had multiple admissions to the hospital for similar findings who was recently discharged from the hospital. Yesterday, he had 3 seizures, came into the emergency room as was noted to be bradycardic. He was admitted. He felt dizzy, but did not have a full syncope. He had a prior episode of chest discomfort, but not recently. He underwent a stress echocardiogram a few months ago that showed no evidence of inducible ischemia and his left ventricular systolic function is preserved. He denies any palpitations. He was on a low dose beta yoanna in the past. He has no PND, orthopnea, or peripheral edema. No history of documented malignant arrhythmia. His coronary risk factors are remarkable for smoking. He is nondiabetic. His lipid profile is not available. His medications included clonidine in addition to metoprolol. REVIEW OF SYSTEMS: RESPIRATORY SYSTEM: He has no recent wheezing or cough, GI SYSTEM: He had no recent GI bleeding. No peptic ulcer disease. SYSTEM: No dysuria or hematuria. NERVOUS SYSTEM: He had a history of seizure. SOCIAL HISTORY: He denies any alcohol since his discharge on the eighth of this month. PHYSICAL EXAMINATION: A 46-year-old male, alert, oriented, in no apparent distress. Blood pressure running in the high 90s to 140s with the rate in the 40s. HEAD: Normocephalic. EYES: Sclerae anicteric. NECK: Good upstroke. No bruit. No jugular venous distention. LUNGS: Clear to auscultation. HEART: Regular rate and rhythm. S1, S2, no S3, no S4, no rub. ABDOMEN: Soft, nontender, positive bowel sounds. No organomegaly. EXTREMITIES: No edema. Intact distal pulses. Lab data revealed an AST of 82, ALT 107, BUN and creatinine 6 and 0.68. Hemoglobin of 14.4. Alcohol level less than 10. EKG revealed a sinus mechanism with sinus bradycardia, rate of 34. Brain CT revealed no evidence of acute bleeding. IMPRESSION: 1. History of seizure related to alcoholism. 2. Sinus bradycardia, could be exacerbated by the beta yoanna and the clonidine. 3. History of smoking. RECOMMENDATIONS: His beta yoanna has been stopped. I will did order thyroid function tests on him to rule out any hypothyroidism. Otherwise, no further cardiac workup will be needed.
[2016-12-09] MEDS ORDERED: LORazepam 1 MG TAB PO STA (15:14)
[2016-12-09] MEDS ORDERED: CALCIUM CARBONATE 500 MG CHEWABLE PO PRN (16:21)
[2016-12-09] MEDS: THIAMINE 100 MG TAB PO SCH (16:33)
[2016-12-09] MEDS: PYRIDOXINE 50 MG TAB PO SCH ×2 (18:35→20:14)
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
[2016-12-09] MEDS: FAMOTIDINE 20 MG TAB PO SCH (20:14)
[2016-12-10] MEDS: LORazepam 1 MG TAB PO PRN ×3 (05:13→20:16)
[2016-12-10 06:48] LABS: Basophils % (A) 0 %; CH 38.2; CHCM 34.5; Eosinophils # (A) 0.1 k/uL (0-0.7); Eosinophils % (A) 1 %; HCT 42.2 % (39.0-53.0); HDW 2.37; HGB 14.3 gm/dL (13.0-17.5); Luc # (Auto) 0.17; Luc % (Auto) 3; Lymphocytes # (A) 1.4 k/uL (1.0-4.8); Lymphocytes % (A) 27 %; MCH 37.7 pg (25.0-35.0); MCHC 33.9 g/dL (31.0-37.0); MCV 111.2 fL (80.0-100.0); Macrocytosis Marked; Mean Platelet Volume 9.1; Monocytes # (A) 0.8 k/uL (0-1.0); Monocytes % (A) 16 %; Neutrophils # (A) 2.8 k/uL (1.3-7.7); Neutrophils % (A) 53 %; RBC 3.79 m/uL (4.30-5.90); RDW 14.3 % (11.5-15.5); WBC 5.4 k/uL (3.8-10.6); WBC (Perox) 5.74
[2016-12-10 07:16] LABS: Anion Gap 8 mmol/L; Blood Urea Nitrogen 7 mg/dL (9-20); Calcium 8.5 mg/dL (8.4-10.2); Carbon Dioxide 26 mmol/L (22-30); Chloride 102 mmol/L (98-107); Glucose 99 mg/dL (74-99); Non-African American GFR(MDRD) >60 (>60 ml/min/1.73 sqM); Potassium 4.2 mmol/L (3.5-5.1); Sodium 136 mmol/L (137-145)
[2016-12-10] MEDS ORDERED: LORazepam 1 MG TAB PO STA (08:05)
[2016-12-10] MEDS: THIAMINE 100 MG TAB PO SCH ×2 (08:11→17:23)
[2016-12-10] MEDS: PYRIDOXINE 50 MG TAB PO SCH ×4 (08:11→20:21)
[2016-12-10] MEDS: FAMOTIDINE 20 MG TAB PO SCH ×2 (08:11→20:21)
[2016-12-10] MEDS: MULTIVITAMINS, THERA 1 EACH TAB PO SCH (08:11)
[2016-12-10 08:46] LABS: Manual Review Performed
[2016-12-10] MEDS ORDERED: ENOXAPARIN 40 MG/0.4 ML SYRINGE SQ SCH (09:00)
--- NOTE | 2016-12-10 17:28 | P.PN ---
Progress Note - Text DATE OF SERVICE: 12/10/2016 PRESENTING COMPLAINT: Seizures INTERVAL HISTORY: This is a 46-year-old male who presented with 3 seizure episodes and the heart rate down in the 30s. Patient's mood has been very labile today, vacillating between anger and crying episodes. Patient insistent that medical staff is not interested in his concerns not addressing his physical problems or handling his pain. [employer] PHOTO INSPECTOR spelled at least 20 minutes with the patient explaining hospital course, medications, and what exactly has been done during the course of his hospital stay. Patient seemed to be better once this conversation was had. REVIEW OF SYSTEMS: Done for constitutional ,cardiovascular, GI, pulmonary with relevant findings as above. CURRENT MEDICATIONS Lovenox, Pepcid, Ativan, vitamins, vitamin B6, vitamin B12. PHYSICAL EXAM VITAL SIGNS: Temperature 98.5, pulse 69, respiratory rate 18, blood pressure 98/56, oxygen saturation 94% on room air. GENERAL APPEARANCE: . Lying in bed, very anxious, crying, then angry.. EYES: Pupils equal. Conjunctiva normal. NECK: JVD not raised. Mass not palpable. RESPIRATORY: Respiratory effort normal. Lungs clear to auscultation. CARDIOVASCULAR: First and second sounds normal. No edema. ABDOMEN: Soft. Liver and spleen not palpable. No tenderness. No mass palpable. PSYCHIATRY: Alert and oriented x3. Mood and affect normal. NEUROLOGICAL: Sensation intact, gross motor movement intact. MUSCULOSKELETAL: Patient is ambulatory to short distances, visible shaking noted. INVESTIGATIONS: Hemoglobin 14.3, sodium 136, BUN 7, creatinine 0.62. ASSESSMENT: Chronic alcoholic hepatitis. Bradycardia, probably secondary to taking Catapres and beta yoanna. 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 Alcoholic hepatitis. Seizures related to alcoholism. Chronic nicotine dependence, patient is a smoker. Anxiety, secondary to multiple medical comorbidities, current living situation. PLAN: Bradycardia is likely due to multiple cardiac medications of Catapres and beta yoanna being given together beta blockers been stopped for the time being. Will monitor thyroid function testing to be done to rule out hypothyroidism. Patient is currently on Ativan to help with anxiety. Benzodiazipine may not be the best choice for this patient with his other medical problems. Condition guarded, will follow closely SEW[employer] PHOTO INSPECTOR statement: Patient was seen and examined by nurse practitioner Debbie Paz and all elements of the case discussed with attending Dr. Sams
--- NOTE | 2016-12-10 17:48 | PN ---
Mr. Schafer is a 46-year-old male with known history of alcoholism who presented with tremor. He had episode of bradycardia that has improved. He denies any chest pain, but he is feeling very unsteady, his family is quite certain about that. He continues to be at this time on Lovenox subcu, Pepcid, vitamin B6 and thiamine. PHYSICAL EXAMINATION: Blood pressure 108/70 with a heart rate in the 60s. LUNGS: Clear. HEART: Regular rate and rhythm. S1, S2, no S3, no rub. ABDOMEN: Soft, nontender. EXTREMITIES: No edema. Lab data revealed a BUN and creatinine are 7 and 0.62. Potassium 4.2. IMPRESSION: 1. Sinus bradycardia, improving after stopping his beta yoanna and clonidine. 2. History of alcoholism and recurrent seizure. 3. Alcoholic neuropathy. 4. History of smoking. RECOMMENDATIONS: From the cardiac standpoint, he is stable. We will see him on an as needed basis. Please feel to call us for any questions.
[2016-12-10] MEDS ORDERED: levETIRAcetam 500 MG TAB PO STA (21:59)
[2016-12-10 22:48] VITALS: BP 98/54; PULSE 62; RESP 17; TEMP 97.8
--- NOTE | 2016-12-11 09:41 | DS ---
DATE OF ADMISSION: 12/09/2016 DATE OF DISCHARGE: 12/10/2016 FINAL DIAGNOSES: 1. Bradycardia, probably secondary to patient taking Catapres and beta blockers. 2. Alcoholic peripheral neuropathy. 3. Alcoholic hepatitis. 4. Seizure related to alcoholism. 5. Chronic nicotine dependence, patient is a smoker. HOSPITAL COURSE: This patient presented with seizure activity and some falls. Heart rate was down to the 30s. Patient's Catapres and beta yoanna both were stopped as patient's blood pressure still was running low. Patient's heart rate had come up. Seen by Dr. Fischer who okayed the patient to be discharged. Patient was told not to drive. Also advised against smoking. CONSULTATION: Dr. Fischer from cardiology. DISCHARGE MEDICATIONS: 1. Folic acid 1 mg p.o. daily. 2. Multivitamin 1 tablet p.o. daily. 3. Tums 500 mg q.i.d. p.r.n. 4. Pepcid 20 mg p.o. b.i.d. 5. Ativan 1 mg p.o. t.i.d. p.r.n. 6. Vitamin B-6, 100 mg p.o. daily. 7. Thiamine 100 mg p.o. daily. 8. Keppra 1000 mg p.o. b.i.d.
== END 2016-12-10 23:58 | disposition home or self-care (01) ==
LOC: EC 06:38 → INTOOBSV 09:39 → 6SEL 09:39
PROVIDERS: ADMIT Hospitalist; ATTEND Hospitalist
DX: K70.10 Alcoholic hepatitis without ascites (principal); R00.1 Bradycardia, unspecified; G62.1 Alcoholic polyneuropathy; G40.509 Epileptic seizures related to external causes, not intractable, without status epilepticus; G40.909 Epilepsy, unspecified, not intractable, without status epilepticus; F10.239 Alcohol dependence with withdrawal, unspecified; T44.7X5A Adverse effect of beta-adrenoreceptor antagonists, initial encounter; T46.5X5A Adverse effect of other antihypertensive drugs, initial encounter; F32.9 Major depressive disorder, single episode, unspecified; F41.0 Panic disorder [episodic paroxysmal anxiety]; M62.81 Muscle weakness (generalized); F06.4 Anxiety disorder due to known physiological condition; R25.1 Tremor, unspecified; M62.50 Muscle wasting and atrophy, not elsewhere classified, unspecified site; R29.6 Repeated falls; F17.210 Nicotine dependence, cigarettes, uncomplicated; Z80.7 Family history of other malignant neoplasms of lymphoid, hematopoietic and related tissues; Z86.79 Personal history of other diseases of the circulatory system; Z88.5 Allergy status to narcotic agent; Z87.01 Personal history of pneumonia (recurrent); Z87.81 Personal history of (healed) traumatic fracture; Z87.19 Personal history of other diseases of the digestive system; Z86.718 Personal history of other venous thrombosis and embolism; Z86.19 Personal history of other infectious and parasitic diseases; Z71.6 Tobacco abuse counseling; Z91.81 History of falling; Z95.828 Presence of other vascular implants and grafts; Z80.3 Family history of malignant neoplasm of breast; Z79.899 Other long term (current) drug therapy; Z86.69 Personal history of other diseases of the nervous system and sense organs; Y90.0 Blood alcohol level of less than 20 mg/100 ml
CPT/HCPCS: 96372; 96374; 99285; 36415; 93005; 80053; 80048; 84443; 83735; 85025 ×2; 81001; 80306; 80320; 70450; G0378 ×2; J2060; J3411; J1650

== ENCOUNTER 2016-12-29 16:02 | Inpatient (IN) | payer OTHER ==
--- NOTE | 2016-12-29 16:43 | ED ---
Alcohol HPI - General Chief Complaint: Alcohol Stated Complaint: DETOX Time Seen by Provider: 12/29/16 16:24 Source: EMS Mode of arrival: EMS Limitations: no limitations - History of Present Illness Initial Comments: Patient is a 46-year-old male with past medical history of alcohol abuse and alcohol withdrawal. He presents to the emergency department today for evaluation of concern for impending alcohol withdrawal. The patient reports he usually drinks 1-2/5 of vodka a day. He states that today he has only had one half of a fifth and is concerned that he may be withdrawing from alcohol. The patient states that he was seen here a couple of weeks ago, he received inpatient treatment and was referred to outpatient therapy for alcohol abuse, however he was helped unable to enrolled due to his previous history of multiple oral metastases. He reports that after that he began drinking again and immediately went back to drinking 1-2/5 of vodka daily. Patient reports that again for the past 3 days he has made the decision that he wants to stop drinking, he has decreased his alcohol intake and is concerned that he may withdrawal. He reports that he feels like he is coming out of his skin and he can tell that these can start having the shakes soon. Patient reports he is hungry, he reports mild chronic abdominal pain. She denies any chest pain or trouble breathing, any rashes or injuries. - Related Data Home Medications Medication Instructions Recorded Confirmed Multivitamins, Thera [Multivitamin 1 tab PO DAILY 12/09/16 12/29/16 (formulary)] Previous Rx's Medication Instructions Recorded Folic Acid 1 mg PO DAILY #30 tablet 11/03/16 Calcium Carbonate [Tums] 500 mg PO QID PRN 12/10/16 Famotidine [Pepcid] 20 mg PO BID #60 tab 12/10/16 LORazepam [Ativan] 1 mg PO TID PRN #15 tab 12/10/16 levETIRAcetam [Keppra] 1,000 mg PO Q12HR #60 tab 12/10/16 Allergies Allergy/AdvReac Type Severity Reaction Status Date / Time hydrocodone bitartrate Allergy Itching Verified 12/29/16 16:35 [From Vicodin] Review of Systems ROS Statement: Those systems with pertinent positive or pertinent negative responses have been documented in the HPI. ROS Other: All systems not noted in ROS Statement are negative. Constitutional: Denies: fever, chills Respiratory: Denies: cough, dyspnea Cardiovascular: Denies: chest pain Endocrine: Reports: fatigue Gastrointestinal: Reports: abdominal pain, nausea. Denies: vomiting, hematemesis Genitourinary: Denies: urgency, dysuria Musculoskeletal: Denies: back pain Skin: Denies: rash Neurological: Denies: headache, weakness Psychiatric: Reports: anxiety Hematological/Lymphatic: Denies: easy bleeding Past Medical History Past Medical History: Chest Pain / Angina, Deep Vein Thrombosis (DVT), Pneumonia , Seizure Disorder, Skin Disorder Additional Past Medical History / Comment(s): CHRONIC ALCOHOLIC SEIZURES R/T WITHDRAWLS, NECROTIZING FASCIITIS RT HAND WAS HOSPITALIZED 53 DAYS ( 2010 )- WAS ON BEDREST -DEVELOPED DVT'S , C-DIFF APPROX 4 YEARS AGO. BROKEN NOSE(HAD SX) , PANCREATITIS. History of Any Multi-Drug Resistant Organisms: None Reported Date of last positivie culture/infection: 2010 MDRO Source:: bowel Past Surgical History: Orthopedic Surgery Additional Past Surgical History / Comment(s): SKIN GRAFT DONE ON RIGHT HAND/ SKIN WAS TAKEN FROM HIS RT THIGH, PT STATED" HAS A STENT OR FILTER TO STOP BLOOD CLOTS FROM GOING TO HIS HEART: SX TO REPAIR BROKEN NOSE. DISLOCATED RT SHOULDER REPAIRED. Past Anesthesia/Blood Transfusion Reactions: No Reported Reaction Additional Past Anesthesia/Blood Transfusion Reaction / Comment(s): CLAUSTERPHOBIA Past Psychological History: Anxiety, Depression, Panic Disorder Additional Psychological History / Comment(s): Pt states was in [employer]; denies PTSD.HAS WORKED IN [email or web address]. PT LIVES ALONE IN A [place]-NO STEPS , NO PETS, NO OUTSIDE SERVIES, NO MEDICAL EQUIPMENT. Smoking Status: Current every day smoker - Past Family History Father Family Medical History: Cancer Additional Family Medical History / Comment(s): MULTIPLE MYELOMA. 2006 Mother Family Medical History: Cancer Additional Family Medical History / Comment(s): BREAST CANCER, STILL LIVING General Exam Limitations: no limitations General appearance: alert Head exam: Present: atraumatic Eye exam: Present: normal appearance, PERRL, EOMI. Absent: scleral icterus, conjunctival injection, periorbital swelling ENT exam: Present: normal exam Neck exam: Present: normal inspection Respiratory exam: Present: normal lung sounds bilaterally Cardiovascular Exam: Present: regular rate, normal rhythm GI/Abdominal exam: Present: soft, normal bowel sounds. Absent: distended, guarding, rebound, rigid Rectal exam: Present: deferred Extremities exam: Present: normal inspection, full ROM, normal capillary refill. Absent: tenderness, pedal edema, joint swelling, calf tenderness Neurological exam: Present: alert, oriented X3 Psychiatric exam: Present: agitated, anxious Skin exam: Present: warm, dry Course Vital Signs 12/29/16 12/29/16 12/29/16 16:08 18:03 19:17 Temperature 98.2 F 98.4 F Pulse Rate 89 82 96 Respiratory 16 18 18 Rate Blood Pressure 130/86 120/77 146/90 O2 Sat by Pulse 94 L 93 L 98 Oximetry 12/29/16 21:30 Temperature 98.8 F Pulse Rate 111 H Respiratory 20 Rate Blood Pressure 127/74 O2 Sat by Pulse 97 Oximetry - Reevaluation(s) Reevaluation #1: Patient was initially seen and evaluated, complaining of alcohol intoxication and concern for impending alcohol withdrawal. Breathalyzer reveals an alcohol of 307. Advised patient we will not treat acute withdrawal with an alcohol level is high. Patient hemodynamically stable with no vital sign abnormalities or signs of withdrawal. Physical exam with no tremor regular diet ordered, patient encouraged to eat as he reports feeling hungry. 12/29/16 16:42 Reevaluation #2: Vision complaining of nausea, Zofran ODT ordered 12/29/16 17:00 Reevaluation #3: Patient agitated and yelling, states that he feels like he is starting to tremor and may be in alcohol withdrawal. By mouth Ativan ordered. 12/29/16 18:57 Reevaluation #4: Patient now complaining of worsening abdominal pain, refusing to eat. Labs ordered for further evaluation. 12/29/16 21:33 Reevaluation #5: Vision becoming more agitated, noted to be tachycardic. IV Ativan was ordered. Advised patient he will be admitted 12/29/16 22:35 Medical Decision Making - Medical Decision Making Since seen and examined, history obtained from patient medical record Isn't clinically intoxicated, breathalyzer without level of 307. Patient's only complaint is concern for impending alcohol withdrawal, advised that if this will call level is unlikely that he will withdraw however we will continue to monitor him. Patient [place] monitor. Regular diet ordered. Patient complaining of nausea and a Zofran was ordered Patient becoming agitated, oral Ativan was ordered He began complaining of abdominal pain, CBC, CMP and lipase were ordered. IV fluids were ordered. She was reevaluated and noted to be eating, however he was starting to have tremors.CIWA was measured to be 8. [facility] alcohol withdraw, hyponatremia, hypochloridemia. - Lab Data Result diagrams: 12/29/16 20:16 12/29/16 21:25 Lab Results 12/29/16 12/29/16 12/29/16 Range/Units 20:16 20:16 21:25 WBC 6.5 (3.8-10.6) k/uL RBC 4.36 (4.30-5.90) m/uL Hgb 16.2 (13.0-17.5) gm/dL Hct 44.9 (39.0-53.0) % MCV 103.2 H D (80.0-100.0) fL MCH 37.2 H (25.0-35.0) pg MCHC 36.1 (31.0-37.0) g/dL RDW 14.1 (11.5-15.5) % Plt Count 225 (150-450) k/uL Neutrophils % 66 % Lymphocytes % 21 % Monocytes % 9 % Eosinophils % 1 % Basophils % 1 % Neutrophils # 4.3 (1.3-7.7) k/uL Lymphocytes # 1.4 (1.0-4.8) k/uL Monocytes # 0.6 (0-1.0) k/uL Eosinophils # 0.0 (0-0.7) k/uL Basophils # 0.0 (0-0.2) k/uL Macrocytosis Slight Sodium 129 L 129 L (137-145) mmol/L Potassium 3.4 L 3.7 (3.5-5.1) mmol/L Chloride 75 L* 81 L (98-107) mmol/L Carbon Dioxide 33 H 27 (22-30) mmol/L Anion Gap 21 21 mmol/L BUN 11 10 (9-20) mg/dL Creatinine 0.62 L 0.59 L (0.66-1.25) mg/dL Est GFR (MDRD) Af Amer >60 >60 (>60 ml/min/1.73 sqM) Est GFR (MDRD) Non-Af >60 >60 (>60 ml/min/1.73 sqM) Glucose 87 79 (74-99) mg/dL Calcium 8.4 7.7 L (8.4-10.2) mg/dL Total Bilirubin 0.9 1.0 (0.2-1.3) mg/dL AST 84 H 76 H (17-59) U/L ALT 61 52 (21-72) U/L Alkaline Phosphatase 128 H 109 (38-126) U/L Total Protein 7.5 7.0 (6.3-8.2) g/dL Albumin 4.4 4.0 (3.5-5.0) g/dL Lipase 82 (23-300) U/L Disposition Clinical Impression: Alcohol withdrawal delirium, Hyponatremia Disposition: ADMITTED IP TO THIS HOSP Referrals: Lizabeth Burgess MD [Primary Care Provider] - 1-2 days
[2016-12-29] MEDS ORDERED: ONDANSETRON ODT 4 MG TAB PO STA (17:03)
[2016-12-29] MEDS ORDERED: LORazepam 1 MG TAB PO STA (18:57)
[2016-12-29] MEDS ORDERED: SODIUM CHLORIDE 0.9% 1,000 ML IV ONE (19:28)
[2016-12-29 20:41] LABS: Basophils % (A) 1 %; CH 37.5; CHCM 36.4; Eosinophils % (A) 1 %; HCT 44.9 % (39.0-53.0); HDW 2.13; HGB 16.2 gm/dL (13.0-17.5); Luc # (Auto) 0.18; Luc % (Auto) 3; Lymphocytes # (A) 1.4 k/uL (1.0-4.8); Lymphocytes % (A) 21 %; MCH 37.2 pg (25.0-35.0); MCHC 36.1 g/dL (31.0-37.0); Macrocytosis Slight; Mean Platelet Volume 6.8; Monocytes # (A) 0.6 k/uL (0-1.0); Monocytes % (A) 9 %; Neutrophils # (A) 4.3 k/uL (1.3-7.7); Neutrophils % (A) 66 %; RBC 4.36 m/uL (4.30-5.90); RDW 14.1 % (11.5-15.5); WBC 6.5 k/uL (3.8-10.6); WBC (Perox) 6.26
[2016-12-29 20:45] LABS: MCV 103.2 fL (80.0-100.0)
[2016-12-29 20:51] LABS: ALT 61 U/L (21-72); AST 84 U/L (17-59); Alkaline Phosphatase 128 U/L (38-126); Anion Gap 21 mmol/L; Blood Urea Nitrogen 11 mg/dL (9-20); Calcium 8.4 mg/dL (8.4-10.2); Carbon Dioxide 33 mmol/L (22-30); Glucose 87 mg/dL (74-99); Non-African American GFR(MDRD) >60 (>60 ml/min/1.73 sqM); Potassium 3.4 mmol/L (3.5-5.1); Sodium 129 mmol/L (137-145); Total Bilirubin 0.9 mg/dL (0.2-1.3); Total Protein 7.5 g/dL (6.3-8.2)
[2016-12-29 20:54] LABS: Chloride 75 mmol/L (98-107)
[2016-12-29 21:43] LABS: ALT 52 U/L (21-72); AST 76 U/L (17-59); Alkaline Phosphatase 109 U/L (38-126); Anion Gap 21 mmol/L; Blood Urea Nitrogen 10 mg/dL (9-20); Calcium 7.7 mg/dL (8.4-10.2); Carbon Dioxide 27 mmol/L (22-30); Chloride 81 mmol/L (98-107); Glucose 79 mg/dL (74-99); Non-African American GFR(MDRD) >60 (>60 ml/min/1.73 sqM); Potassium 3.7 mmol/L (3.5-5.1); Sodium 129 mmol/L (137-145)
[2016-12-29] MEDS ORDERED: LORazepam 2 MG/ML SYRINGE IV STA (22:31)
[2016-12-29] MEDS ORDERED: NALOXONE 0.4 MG/ML 1 ML VIAL IV PRN (22:37)
[2016-12-29] MEDS ORDERED: LORazepam 2 MG/ML SYRINGE IV PRN (22:39)
[2016-12-29] MEDS ORDERED: ONDANSETRON 4 MG/2 ML VIAL IVP STA (22:50)
[2016-12-30] MEDS ORDERED: CALCIUM CARBONATE 500 MG CHEWABLE PO PRN (00:24)
[2016-12-30] MEDS: LORazepam 2 MG/ML SYRINGE IV PRN ×11 (00:30→23:32)
[2016-12-30] MEDS: THIAMINE 100 MG TAB PO SCH ×3 (01:44→16:30)
[2016-12-30 05:46] LABS: Appearance,Urine Clear (Clear); Bilirubin,Urine Negative (Negative); Glucose,Urine (UA) Negative (Negative); Ketones,Urine 1+ (Negative); Leukocyte Esterase,Urine Negative (Negative); Nitrite,Urine Negative (Negative); PH, Urine 8.5 (5.0-8.0); Particle Count 1520; Protein,Urine 1+ (Negative); RBC,Urine 30 /hpf (0-5); Specific Gravity,Urine 1.021 (1.001-1.035); Squamous Epithelial Cell,Urine <1 /hpf (0-4); UA Billing (MACRO vs. MICRO) MICRO; WBC,Urine <1 /hpf (0-5)
[2016-12-30 08:09] LABS: Basophils % (A) 0 %; CH 36.9; CHCM 35.8; Eosinophils % (A) 1 %; HCT 42.1 % (39.0-53.0); Luc % (Auto) 2; Lymphocytes # (A) 0.9 k/uL (1.0-4.8); Lymphocytes % (A) 19 %; MCH 36.9 pg (25.0-35.0); MCHC 35.7 g/dL (31.0-37.0); MCV 103.4 fL (80.0-100.0); Macrocytosis Slight; Mean Platelet Volume 8.4; Monocytes # (A) 0.5 k/uL (0-1.0); Monocytes % (A) 10 %; Neutrophils # (A) 3.1 k/uL (1.3-7.7); Neutrophils % (A) 68 %; RBC 4.07 m/uL (4.30-5.90); RDW 13.5 % (11.5-15.5); WBC 4.6 k/uL (3.8-10.6); WBC (Perox) 4.77
[2016-12-30 08:15] LABS: ALT 56 U/L (21-72); AST 84 U/L (17-59); Alkaline Phosphatase 107 U/L (38-126); Anion Gap 11 mmol/L; Blood Urea Nitrogen 13 mg/dL (9-20); Calcium 8.7 mg/dL (8.4-10.2); Carbon Dioxide 39 mmol/L (22-30); Glucose 101 mg/dL (74-99); Non-African American GFR(MDRD) >60 (>60 ml/min/1.73 sqM); Potassium 3.3 mmol/L (3.5-5.1); Sodium 130 mmol/L (137-145); Total Bilirubin 1.6 mg/dL (0.2-1.3); Total Protein 6.9 g/dL (6.3-8.2)
[2016-12-30 08:22] LABS: Chloride 80 mmol/L (98-107)
[2016-12-30] MEDS: HEPARIN SODIUM,PORCINE 5,000 UNIT/ML 1 ML VIAL SQ SCH ×2 (08:33→20:04)
[2016-12-30] MEDS: FAMOTIDINE 20 MG TAB PO SCH ×2 (08:35→20:04)
[2016-12-30] MEDS: levETIRAcetam 500 MG TAB PO SCH ×2 (08:35→20:04)
[2016-12-30] MEDS: MULTIVITAMINS, THERA 1 EACH TAB PO SCH (11:24)
[2016-12-30] MEDS: FOLIC ACID 1 MG TAB PO SCH (11:57)
[2016-12-30] MEDS ORDERED: Potassium Replacement Protocol 1 EACH MISC MISCELLANE PRN ×3 (12:08→22:08)
[2016-12-30] MEDS: POTASSIUM CHLORIDE ER 20 MEQ TAB.ER PO SCH ×2 (13:00→13:33)
[2016-12-30 13:27] VITALS: BMI 23.3
[2016-12-30] MEDS: POTASSIUM CHLORIDE 10 MEQ, LIDOCAINE 2% INJ 10 MG in SODIUM CHLORIDE 0.9% 100 ML IV SCH ×2 (13:32→16:30)
[2016-12-30] MEDS: ONDANSETRON 4 MG/2 ML VIAL IVP PRN (20:04)
[2016-12-31 00:05] VITALS: RESP 18
[2016-12-31] MEDS: POTASSIUM CHLORIDE 10 MEQ, LIDOCAINE 2% INJ 10 MG in SODIUM CHLORIDE 0.9% 100 ML IV SCH ×2 (00:10→01:41)
[2016-12-31] MEDS: LORazepam 2 MG/ML SYRINGE IV PRN ×3 (02:22→08:36)
[2016-12-31] MEDS: ONDANSETRON 4 MG/2 ML VIAL IVP PRN (06:52)
[2016-12-31 07:45] VITALS: BP 116/77; PULSE 58; TEMP 97.3
[2016-12-31 08:15] LABS: Aty Lym Flag Slight; CH 37.4; CHCM 34.9; HDW 2.15; HGB 13.8 gm/dL (13.0-17.5); MCHC 35.3 g/dL (31.0-37.0); MCV 107.5 fL (80.0-100.0); Macrocytosis Moderate; Mean Platelet Volume 7.7; RBC 3.63 m/uL (4.30-5.90); WBC 3.2 k/uL (3.8-10.6); WBC (Perox) 2.99
[2016-12-31] MEDS: HEPARIN SODIUM,PORCINE 5,000 UNIT/ML 1 ML VIAL SQ SCH (08:36)
[2016-12-31] MEDS: levETIRAcetam 500 MG TAB PO SCH (08:36)
[2016-12-31] MEDS: FAMOTIDINE 20 MG TAB PO SCH (08:36)
[2016-12-31 08:39] LABS: Anion Gap 9 mmol/L; Calcium 9.3 mg/dL (8.4-10.2); Carbon Dioxide 31 mmol/L (22-30); Chloride 94 mmol/L (98-107); Glucose 100 mg/dL (74-99); Non-African American GFR(MDRD) >60 (>60 ml/min/1.73 sqM); Sodium 134 mmol/L (137-145)
[2016-12-31 08:44] LABS: Blood Urea Nitrogen 9 mg/dL (9-20); Potassium 4.5 mmol/L (3.5-5.1)
[2016-12-31 08:59] LABS: Add Differential Manual Differential
[2016-12-31 09:02] LABS: Manual Review Performed; Nucleated Red Blood Cells 0 /100 WBC (0-0); Total Cells Counted 100
--- NOTE | 2016-12-31 12:16 | HP ---
DATE OF ADMISSION: 12/29/16 CHIEF COMPLAINT: Alcohol withdrawal. HISTORY OF PRESENT ILLNESS: This 46 year gentleman with past medical history of multiple medical problems including alcohol history, DVT, history of seizure disorder, DJD, being followed by Dr. Lizabeth Burgess in the outpatient setting, was admitted with alcohol withdrawal symptoms. The patient apparently drinking about one to two fifths of vodka daily and the patient had concerns of withdrawal from alcohol and the patient came to [facility] and admitted for further evaluation and treatment. The patient also was found to have hyponatremia at 129. There is no history of any fever, rigors or chills. No history of headache, loss of consciousness or seizures. PAST MEDICAL HISTORY: History of ETOH. History of seizure disorder. Pneumonia. MEDICATIONS: Prior to admission include: 1. Keppra 1000 mg po b.i.d. 2. Multivitamins. 3. Ativan 1 mg t.i.d. prn 4. Folic acid 1 mg. 5. Pepcid 20 mg b.i.d. 6. TUMS. ALLERGIES: HYDROCODONE. FAMILY HISTORY: History of cancer, multiple myelomas. SOCIAL HISTORY: History of alcohol and history of smoking. REVIEW OF SYSTEMS: ENT: No diminished vision, no diminished hearing. CARDIOVASCULAR: No angina or palpitations. RESPIRATORY: No cough. GI: No nausea or vomiting. : No dysuria. NERVOUS SYSTEM: No numbness or weakness. ALLERGY/IMMUNOLOGY: No asthma or hayfever. MUSCULOSKELETAL: As mentioned earlier. HEMATOLOGY/ONCOLOGY: No history of anemia. ENDOCRINE: No history of diabetes or hypothyroidism. CONSTITUTIONAL: As mentioned earlier. DERMATOLOGY: Negative. RHEUMATOLOGICAL: Negative. PSYCHIATRIC: As mentioned earlier. PHYSICAL EXAMINATION: The patient is awake, alert and oriented times three. Pulse 111. Blood pressure 127/74, respiratory rate 20. Temperature 98.8. Pulse ox 97% on room air. HEENT: Conjunctivae normal. NECK: No JVD. CARDIOVASCULAR: S1, S2. RESPIRATORY: Breath sounds diminished at the bases. A few scattered rhonchi and no crackles. ABDOMEN: Soft, nontender. LEGS: No edema. No swelling. NERVOUS SYSTEM: Diffusely weak. LABS: WBC 6.5, MCV 103.2. Sodium 129. Chloride 75. ASSESSMENT: 1. Acute alcohol intoxication, alcohol withdrawal syndrome. 2. Hyponatremia. 3. History of delirium tremens. 4. Hypochloremia. 5. History of seizure disorder. 6. History of deep vein thrombosis. 7. Anxiety, depression. 8. Panic disorder. RECOMMENDATIONS AND DISCUSSION: In this 46 year old gentleman who presented with multiple complex medical issues, we will monitor the patient closely. WA protocol. Multivitamin supplementation. Otherwise, continue to monitor. Watch for delirium tremens. Resume the home medications. Guarded prognosis because of multiple complex medical issues. Further recommendations to follow. See orders for details. MTDD
[2016-12-31] MEDS: FOLIC ACID 1 MG TAB PO SCH (12:22)
[2016-12-31] MEDS: MULTIVITAMINS, THERA 1 EACH TAB PO SCH (12:22)
[2016-12-31] MEDS: THIAMINE 100 MG TAB PO SCH (12:22)
--- NOTE | 2017-01-01 12:09 | PN ---
DATE OF SERVICE: 12/30/2016 This 46-year-old gentleman who was admitted with alcohol withdrawal and as well as hyponatremia and multiple other medical problems has been closely monitored. No chest pain. No palpitations. No fever. On exam, alert and oriented x3. Pulse 100, blood pressure 119/70, respirations 18, temperature 97.4, pulse ox 97% on room air. HEENT: Conjunctivae normal. NECK: No jugular venous distention. CARDIOVASCULAR: S1, S2. RESPIRATORY: Breath sounds diminished at the bases. A few rhonchi. No crackles. ABDOMEN: Soft, nontender. LEGS: No edema. NERVOUS SYSTEM: No focal deficits. LABS: Potassium 3.3, sodium 130. ASSESSMENT: 1. Alcohol withdrawal and early delirium tremens. 2. Hyponatremia. 3. Hypokalemia. 4. History of deep venous thrombosis. 5. History of seizure disorder. 6. Anxiety and depression. RECOMMENDATIONS AND DISCUSSION: I recommend to continue the current medications , continue monitoring and symptomatic treatment. Otherwise at this time, I would recommend to monitor the patient closely. Alcohol cessation advised. Further recommendations to follow. Repeat labs. MTDD
--- NOTE | 2017-01-02 08:21 | DS ---
FINAL DIAGNOSES: 1. Acute alcohol intoxication, alcohol withdrawal syndrome. 2. Hyponatremia. 3. History of delirium tremens. 4. History of hypochloremia. 5. History of seizure disorder. DISCHARGE DISPOSITION: The patient is being discharged in stable condition with guarded prognosis. HISTORY OF PRESENT ILLNESS: This 46 year old gentleman with past medical history of multiple medical problems with alcohol withdrawal and hyponatremia, treated symptomatically. Improved significantly. On exam, vital signs are stable. Cardiovascular: S1, S2. Abdomen soft. Nervous system: No focal deficits. DISCHARGE ADVICE AND MEDICATIONS: 1. Diet is cardiac. 2. Activity limited until follow up. 3. Follow up with Dr. Lizabeth Burgess in one to two days. 4. Attend alcohol rehab and AA. 5. TUMS 500 mg q.i.d. prn 6. Pepcid 20 mg po b.i.d. 7. Folic acid 1 mg po daily. 8. Keppra 1000 mg po b.i.d. 9. Ativan 1 mg po t.i.d. prn 10. Multivitamins one po daily. 11. Thiamin 100 mg po daily. MTDD
== END 2016-12-31 13:59 | disposition home or self-care (01) | DRG 897 ==
LOC: EC 16:02 → 4MS4W 22:39
PROVIDERS: ADMIT Hospitalist; ATTEND Hospitalist
DX: F10.231 Alcohol dependence with withdrawal delirium (principal); E87.8 Other disorders of electrolyte and fluid balance, not elsewhere classified; E87.1 Hypo-osmolality and hyponatremia; E87.6 Hypokalemia; F32.9 Major depressive disorder, single episode, unspecified; F41.0 Panic disorder [episodic paroxysmal anxiety]; G40.909 Epilepsy, unspecified, not intractable, without status epilepticus; Z86.718 Personal history of other venous thrombosis and embolism; Z87.891 Personal history of nicotine dependence; Z79.899 Other long term (current) drug therapy; Z88.5 Allergy status to narcotic agent
CPT/HCPCS: 36415; 80048; 80053; 80306; 81001; 83690; 83735; 84132; 85025; 96374; 96375; 99285

== ENCOUNTER 2017-01-22 16:01 | Inpatient (IN) | payer OTHER ==
[2017-01-22] MEDS ORDERED: LORazepam 2 MG/ML SYRINGE IV STA ×2 (16:55→19:12)
[2017-01-22] MEDS ORDERED: SODIUM CHLORIDE 0.9% 1,000 ML IV STA (16:55)
[2017-01-22] MEDS ORDERED: SODIUM CHLORIDE 0.9% 500 ML IV STA (16:55)
[2017-01-22 17:56] LABS: Basophils % (A) 1 %; CH 37.5; CHCM 34.5; Eosinophils % (A) 1 %; HCT 43.2 % (39.0-53.0); HDW 2.25; HGB 14.8 gm/dL (13.0-17.5); Luc # (Auto) 0.13; Luc % (Auto) 3; Lymphocytes # (A) 1.5 k/uL (1.0-4.8); Lymphocytes % (A) 38 %; MCH 37.4 pg (25.0-35.0); MCHC 34.3 g/dL (31.0-37.0); Macrocytosis Marked; Mean Platelet Volume 7.8; Monocytes # (A) 0.5 k/uL (0-1.0); Monocytes % (A) 14 %; Neutrophils # (A) 1.7 k/uL (1.3-7.7); Neutrophils % (A) 44 %; RBC 3.97 m/uL (4.30-5.90); RDW 14.4 % (11.5-15.5); WBC 3.9 k/uL (3.8-10.6); WBC (Perox) 3.86
--- NOTE | 2017-01-22 18:00 | XR ---
EXAMINATION TYPE: XR chest 1V portable DATE OF EXAM: 01/22/2017 COMPARISON: 11/30/2016 HISTORY: Chest pain TECHNIQUE: Single frontal view of the chest is obtained. FINDINGS: Heart and mediastinum are normal. Lungs are clear. Diaphragm is normal. Bony thorax appear s normal. IMPRESSION: Normal chest. No change. Old right posterior fifth rib fracture noted.
[2017-01-22 18:01] LABS: INR 1.1 (<1.2); Prothrombin Time 10.9 sec (9.0-12.0)
[2017-01-22 18:17] LABS: ALT 49 U/L (21-72); AST 74 U/L (17-59); Alcohol 58 mg/dL; Alkaline Phosphatase 86 U/L (38-126); Amylase 80 U/L (30-110); Anion Gap 15 mmol/L; Blood Urea Nitrogen 8 mg/dL (9-20); Calcium 9.4 mg/dL (8.4-10.2); Carbon Dioxide 32 mmol/L (22-30); Chloride 88 mmol/L (98-107); Glucose 62 mg/dL (74-99); Magnesium 1.6 mg/dL (1.6-2.3); Non-African American GFR(MDRD) >60 (>60 ml/min/1.73 sqM); Phosphorous 2.9 mg/dL (2.5-4.5); Potassium 3.3 mmol/L (3.5-5.1); Sodium 135 mmol/L (137-145); Total Bilirubin 1.3 mg/dL (0.2-1.3); Total Protein 8.1 g/dL (6.3-8.2)
[2017-01-22 18:26] LABS: Manual Review Performed; Target Cells Present
[2017-01-22 19:39] LABS: Appearance,Urine Clear (Clear); Bilirubin,Urine Negative (Negative); Glucose,Urine (UA) Negative (Negative); Ketones,Urine 1+ (Negative); Leukocyte Esterase,Urine Negative (Negative); Mucus,Urine Rare /hpf; Nitrite,Urine Negative (Negative); PH, Urine 6.5 (5.0-8.0); Particle Count 2174; Protein,Urine Trace (Negative); RBC,Urine 2 /hpf (0-5); Specific Gravity,Urine 1.022 (1.001-1.035); Squamous Epithelial Cell,Urine <1 /hpf (0-4); UA Billing (MACRO vs. MICRO) MICRO; WBC,Urine 1 /hpf (0-5)
--- NOTE | 2017-01-22 19:44 | ED ---
Alcohol HPI - General Chief Complaint: Alcohol Stated Complaint: ETOH Withdrawl Time Seen by Provider: 01/22/17 16:18 Source: EMS Mode of arrival: EMS Limitations: no limitations - History of Present Illness Initial Comments: 46 years old gentleman had been drinking quite heavily and also history of alcoholism then he was sober for quite a few years but then unfortunately E he relapsed he stated he drinks one fifth of vodka daily he couldn't afford vodka today he just had a few beers tonight was drink was about 7 hours ago now he is shaking his hands or staff refreeze very anxious he has a severe diarrhea and is very nervous. Abdominal pain he stated he has a history of C. diff in the past. He denies any fall or trauma no head injury no neck stiffness no fever no chills no shortness of breath no abdominal pain no frequency urgency dysuria he does have a diarrhea denies any recent antibiotic use she denies any sick family members - Related Data Home Medications Medication Instructions Recorded Confirmed Multivitamins, Thera [Multivitamin 1 tab PO DAILY 12/09/16 01/22/17 (formulary)] levETIRAcetam [Keppra] 1,000 mg PO BID 01/22/17 01/22/17 Previous Rx's Medication Instructions Recorded Folic Acid 1 mg PO DAILY #30 tablet 11/03/16 Calcium Carbonate [Tums] 500 mg PO QID PRN 12/10/16 Famotidine [Pepcid] 20 mg PO BID #60 tab 12/10/16 LORazepam [Ativan] 1 mg PO TID PRN #30 tab 12/31/16 Thiamine [Vitamin B-1] 100 mg PO DAILY #30 tab 12/31/16 Allergies Allergy/AdvReac Type Severity Reaction Status Date / Time hydrocodone bitartrate Allergy Itching Verified 01/22/17 16:22 [From Vicodin] Review of Systems ROS Statement: Those systems with pertinent positive or pertinent negative responses have been documented in the HPI. ROS Other: All systems not noted in ROS Statement are negative. Past Medical History Past Medical History: Chest Pain / Angina, Deep Vein Thrombosis (DVT), Pneumonia , Seizure Disorder, Skin Disorder Additional Past Medical History / Comment(s): CHRONIC ALCOHOLIC SEIZURES R/T WITHDRAWLS, NECROTIZING FASCIITIS RT HAND WAS HOSPITALIZED 53 DAYS ( 2010 )- WAS ON BEDREST -DEVELOPED DVT'S , C-DIFF APPROX 4 YEARS AGO. BROKEN NOSE(HAD SX) , PANCREATITIS. History of Any Multi-Drug Resistant Organisms: C-DIFF Date of last positivie culture/infection: 2010 MDRO Source:: bowel Past Surgical History: Orthopedic Surgery Additional Past Surgical History / Comment(s): SKIN GRAFT DONE ON RIGHT HAND/ SKIN WAS TAKEN FROM HIS RT THIGH, PT STATED" HAS A STENT OR FILTER TO STOP BLOOD CLOTS FROM GOING TO HIS HEART: SX TO REPAIR BROKEN NOSE. DISLOCATED RT SHOULDER REPAIRED. Past Anesthesia/Blood Transfusion Reactions: No Reported Reaction Additional Past Anesthesia/Blood Transfusion Reaction / Comment(s): CLAUSTERPHOBIA Past Psychological History: Anxiety, Depression, Panic Disorder Smoking Status: Current every day smoker - Past Family History Father Family Medical History: Cancer Additional Family Medical History / Comment(s): MULTIPLE MYELOMA. 2006 Mother Family Medical History: Cancer Additional Family Medical History / Comment(s): BREAST CANCER, STILL LIVING General Exam - General Exam Comments Initial Comments: General: The patient is awake and alert, bit shaky, face is flushed, GCS is 15 Skin: Skin is warm and dry and no rashes or lesions are noted. Eye: Pupils are equal, round and reactive to light, extra-ocular movements are intact; there is normal conjunctiva bilaterally. Ears, nose, mouth and throat: There are moist mucous membranes and no oral lesions. Neck: The neck is supple, there is no tenderness or JVD. Cardiovascular: There is a regular rate and rhythm. No murmur, rub or gallop is appreciated. Respiratory: To auscultation bilateral, no wheezing no rhonchi no distress respiratory meng noticed Gastrointestinal: Soft, non-distended, non-tender abdomen without masses or organomegaly noted. There is no rebound or guarding present. Bowel sounds are unremarkable. Back: There is no tenderness to palpation in the midline. There is no obvious deformity. Musculoskeletal: Normal ROM, no tenderness, There is no pedal edema. There is no calf tenderness or swelling. No cords were appreciated. Neurological: CN II-XII intact, Cranial nerves III through XII are intact. There are no obvious motor or sensory deficits. Coordination appears grossly intact. Speech is normal. Psychiatric: Cooperative, appropriate mood & affect, normal judgment nervous, denies any suicidal or homicidal ideation. Limitations: no limitations Course Vital Signs 01/22/17 01/22/17 01/22/17 16:05 17:59 19:08 Temperature 98.3 F Pulse Rate 98 77 87 Respiratory 20 16 20 Rate Blood Pressure 132/76 110/77 104/67 O2 Sat by Pulse 98 97 98 Oximetry Patient did well with Ativan 2 mg IV, CBC, comprehensive metabolic panel and chest x-ray are unremarkable Medical Decision Making - Lab Data Result diagrams: 01/22/17 17:25 01/22/17 17:25 Lab Results 01/22/17 01/22/17 01/22/17 Range/Units 17:25 17:25 17:25 WBC 3.9 (3.8-10.6) k/uL RBC 3.97 L (4.30-5.90) m/uL Hgb 14.8 (13.0-17.5) gm/dL Hct 43.2 (39.0-53.0) % MCV 109.0 H (80.0-100.0) fL MCH 37.4 H (25.0-35.0) pg MCHC 34.3 (31.0-37.0) g/dL RDW 14.4 (11.5-15.5) % Plt Count 168 (150-450) k/uL Neutrophils % 44 % Lymphocytes % 38 % Monocytes % 14 % Eosinophils % 1 % Basophils % 1 % Neutrophils # 1.7 (1.3-7.7) k/uL Lymphocytes # 1.5 (1.0-4.8) k/uL Monocytes # 0.5 (0-1.0) k/uL Eosinophils # 0.0 (0-0.7) k/uL Basophils # 0.0 (0-0.2) k/uL Manual Slide Review Performed Macrocytosis Marked Target Cells Present PT 10.9 (9.0-12.0) sec INR 1.1 (<1.2) Sodium 135 L (137-145) mmol/L Potassium 3.3 L (3.5-5.1) mmol/L Chloride 88 L (98-107) mmol/L Carbon Dioxide 32 H (22-30) mmol/L Anion Gap 15 mmol/L BUN 8 L (9-20) mg/dL Creatinine 0.67 (0.66-1.25) mg/dL Est GFR (MDRD) Af Amer >60 (>60 ml/min/1.73 sqM) Est GFR (MDRD) Non-Af >60 (>60 ml/min/1.73 sqM) Glucose 62 L (74-99) mg/dL Calcium 9.4 (8.4-10.2) mg/dL Phosphorus 2.9 (2.5-4.5) mg/dL Magnesium 1.6 (1.6-2.3) mg/dL Total Bilirubin 1.3 (0.2-1.3) mg/dL AST 74 H (17-59) U/L ALT 49 (21-72) U/L Alkaline Phosphatase 86 (38-126) U/L Total Protein 8.1 (6.3-8.2) g/dL Albumin 4.7 (3.5-5.0) g/dL Amylase 80 (30-110) U/L Lipase 124 (23-300) U/L Urine Color Urine Appearance (Clear) Urine pH (5.0-8.0) Ur Specific [place] (1.001-1.035) Urine Protein (Negative) Urine Glucose (UA) (Negative) Urine Ketones (Negative) Urine Blood (Negative) Urine Nitrite (Negative) Urine Bilirubin (Negative) Urine Urobilinogen (<2.0) mg/dL Ur Leukocyte Esterase (Negative) Urine RBC (0-5) /hpf Urine WBC (0-5) /hpf Ur Squamous Epith Cells (0-4) /hpf Hyaline Casts (0-2) /lpf Urine Mucus (None) /hpf Urine Opiates Screen (NotDetected) Ur Oxycodone Screen (NotDetected) Urine Methadone Screen (NotDetected) Ur Propoxyphene Screen (NotDetected) Ur Barbiturates Screen (NotDetected) U Tricyclic Antidepress (NotDetected) Ur Phencyclidine Scrn (NotDetected) Ur Amphetamines Screen (NotDetected) U Methamphetamines Scrn (NotDetected) U Benzodiazepines Scrn (NotDetected) Urine Cocaine Screen (NotDetected) U Marijuana (THC) Screen (NotDetected) Serum Alcohol 58 mg/dL 01/22/17 Range/Units 19:25 WBC (3.8-10.6) k/uL RBC (4.30-5.90) m/uL Hgb (13.0-17.5) gm/dL Hct (39.0-53.0) % MCV (80.0-100.0) fL MCH (25.0-35.0) pg MCHC (31.0-37.0) g/dL RDW (11.5-15.5) % Plt Count (150-450) k/uL Neutrophils % % Lymphocytes % % Monocytes % % Eosinophils % % Basophils % % Neutrophils # (1.3-7.7) k/uL Lymphocytes # (1.0-4.8) k/uL Monocytes # (0-1.0) k/uL Eosinophils # (0-0.7) k/uL Basophils # (0-0.2) k/uL Manual Slide Review Macrocytosis Target Cells PT (9.0-12.0) sec INR (<1.2) Sodium (137-145) mmol/L Potassium (3.5-5.1) mmol/L Chloride (98-107) mmol/L Carbon Dioxide (22-30) mmol/L Anion Gap mmol/L BUN (9-20) mg/dL Creatinine (0.66-1.25) mg/dL Est GFR (MDRD) Af Amer (>60 ml/min/1.73 sqM) Est GFR (MDRD) Non-Af (>60 ml/min/1.73 sqM) Glucose (74-99) mg/dL Calcium (8.4-10.2) mg/dL Phosphorus (2.5-4.5) mg/dL Magnesium (1.6-2.3) mg/dL Total Bilirubin (0.2-1.3) mg/dL AST (17-59) U/L ALT (21-72) U/L Alkaline Phosphatase (38-126) U/L Total Protein (6.3-8.2) g/dL Albumin (3.5-5.0) g/dL Amylase (30-110) U/L Lipase (23-300) U/L Urine Color Yellow Urine Appearance Clear (Clear) Urine pH 6.5 (5.0-8.0) Ur Specific [place] 1.022 (1.001-1.035) Urine Protein Trace H (Negative) Urine Glucose (UA) Negative (Negative) Urine Ketones 1+ H (Negative) Urine Blood Trace H (Negative) Urine Nitrite Negative (Negative) Urine Bilirubin Negative (Negative) Urine Urobilinogen 3.0 (<2.0) mg/dL Ur Leukocyte Esterase Negative (Negative) Urine RBC 2 (0-5) /hpf Urine WBC 1 (0-5) /hpf Ur Squamous Epith Cells <1 (0-4) /hpf Hyaline Casts 3 H (0-2) /lpf Urine Mucus Rare H (None) /hpf Urine Opiates Screen Not Detected (NotDetected) Ur Oxycodone Screen Not Detected (NotDetected) Urine Methadone Screen Not Detected (NotDetected) Ur Propoxyphene Screen Not Detected (NotDetected) Ur Barbiturates Screen Not Detected (NotDetected) U Tricyclic Antidepress Not Detected (NotDetected) Ur Phencyclidine Scrn Not Detected (NotDetected) Ur Amphetamines Screen Not Detected (NotDetected) U Methamphetamines Scrn Not Detected (NotDetected) U Benzodiazepines Scrn Detected H (NotDetected) Urine Cocaine Screen Not Detected (NotDetected) U Marijuana (THC) Screen Not Detected (NotDetected) Serum Alcohol mg/dL Disposition Clinical Impression: Alcohol withdrawal Disposition: ADMITTED IP TO THIS HOSP Condition: Good Instructions: Alcohol Withdrawal (ED) Referrals: Lizabeth Burgess MD [Primary Care Provider] - 1-2 days
[2017-01-22] MEDS ORDERED: SODIUM CHLORIDE 0.9% 1,000 ML IV ONE (20:02)
[2017-01-22] MEDS ORDERED: THIAMINE 100 MG/ML 2 ML VIAL IM STA (20:02)
[2017-01-22] MEDS ORDERED: LORazepam 1 MG TAB PO PRN (20:05)
[2017-01-22] MEDS ORDERED: CALCIUM CARBONATE 500 MG CHEWABLE PO PRN (20:05)
[2017-01-22] MEDS: LORazepam 2 MG/ML SYRINGE IV PRN ×2 (21:10→23:56)
[2017-01-22] MEDS: levETIRAcetam 500 MG TAB PO SCH (23:49)
[2017-01-22] MEDS: FAMOTIDINE 20 MG TAB PO SCH (23:49)
[2017-01-22] MEDS: THIAMINE 100 MG TAB PO SCH (23:49)
[2017-01-23] MEDS: LORazepam 2 MG/ML SYRINGE IV PRN ×10 (02:33→23:47)
[2017-01-23] MEDS ORDERED: Potassium Replacement Protocol 1 EACH MISC MISCELLANE PRN (08:12)
[2017-01-23] MEDS ORDERED: Magnesium Replacement Protocol 1 EACH MISC MISCELLANE PRN (08:12)
[2017-01-23] MEDS ORDERED: SODIUM CHLORIDE 0.9% 1,000 ML IV SCH (08:15)
[2017-01-23] MEDS: levETIRAcetam 500 MG TAB PO SCH ×2 (08:22→21:46)
[2017-01-23] MEDS: FAMOTIDINE 20 MG TAB PO SCH ×2 (08:22→21:46)
[2017-01-23] MEDS: MAGNESIUM SULFATE-D5W PMX 1 GM in DEXTROSE/WATER 1 100ML.BAG IVPB SCH ×2 (10:02→11:31)
[2017-01-23] MEDS: POTASSIUM CHLORIDE ER 20 MEQ TAB.ER PO SCH ×2 (10:03→12:55)
[2017-01-23] MEDS ORDERED: LORazepam 2 MG/ML SYRINGE IV STA (11:17)
[2017-01-23] MEDS: THIAMINE 100 MG TAB PO SCH (11:31)
[2017-01-23] MEDS: LOPERAMIDE 2 MG CAP PO PRN ×3 (11:31→23:47)
[2017-01-23] MEDS ORDERED: MULTIVITAMINS, THERA 1 EACH TAB PO SCH (12:00)
[2017-01-23] MEDS ORDERED: 0.9% NACL WITH KCL 20 MEQ/L 1,000 ML with MVI, ADULT NO.4 WITH VIT K 10 ML, THIAMINE 10... IV SCH ×4 (13:00)
[2017-01-23 13:28] VITALS: BMI 19.6
--- NOTE | 2017-01-23 14:25 | P.HPIM ---
History of Present Illness H&P Date: 01/23/17 Chief Complaint: Alcohol withdrawal 46-year-old gentleman with history of alcohol use and drinks about a fifth of hard liquor daily comes in the hospital as he started to notice getting jittery. Patient's last drink was 4 PM the night before admission Noted to have tremors elevated heart rate and headaches hence was admitted to hospital since his ciwa score was greater than 10 At this time patient slightly got worse and has required over 8 mg of Ativan overnight Evaluation patient states that he does have a slight headache feels that he has something crawling all over his body no nausea vomiting abdominal pain diarrhea reported Review of Systems All systems: negative Past Medical History Past Medical History: Chest Pain / Angina, Deep Vein Thrombosis (DVT), Pneumonia , Seizure Disorder, Skin Disorder Additional Past Medical History / Comment(s): CHRONIC ALCOHOLIC SEIZURES R/T WITHDRAWLS, NECROTIZING FASCIITIS RT HAND WAS HOSPITALIZED 53 DAYS ( 2010 )- WAS ON BEDREST -DEVELOPED DVT'S , C-DIFF APPROX 4 YEARS AGO. BROKEN NOSE(HAD SX) , PANCREATITIS. History of Any Multi-Drug Resistant Organisms: C-DIFF Date of last positivie culture/infection: 2010 MDRO Source:: bowel Past Surgical History: Orthopedic Surgery Additional Past Surgical History / Comment(s): SKIN GRAFT DONE ON RIGHT HAND/ SKIN WAS TAKEN FROM HIS RT THIGH, PT STATED" HAS A STENT OR FILTER TO STOP BLOOD CLOTS FROM GOING TO HIS HEART: SX TO REPAIR BROKEN NOSE. DISLOCATED RT SHOULDER REPAIRED. Past Anesthesia/Blood Transfusion Reactions: No Reported Reaction Additional Past Anesthesia/Blood Transfusion Reaction / Comment(s): CLAUSTERPHOBIA Past Psychological History: Anxiety, Depression, Panic Disorder Additional Psychological History / Comment(s): Pt states was in [employer]; denies PTSD.HAS WORKED IN INVENTORY CONTROL. PT LIVES ALONE IN A [place]-NO STEPS , NO PETS, NO OUTSIDE SERVIES, NO MEDICAL EQUIPMENT. Smoking Status: Current every day smoker Past Alcohol Use History: Abuse, Daily Additional Past Alcohol Use History / Comment(s): STARTED SMOKING AT AGE 20- SMOKED 1/2 PPD.BUT STATED DOWN TO 3 CIG PER DAY.PT STATED HE USUALLY DRINKS DAILY A FIFTH OF VODKA PER DAY BUT TODAY HE DRANK 3 TALL BEERS AND A 1/2 OF BOTTLE OF LISTERINE.. Past Drug Use History: None Reported - Past Family History Father Family Medical History: Cancer Additional Family Medical History / Comment(s): MULTIPLE MYELOMA. 2006 Mother Family Medical History: Cancer Additional Family Medical History / Comment(s): BREAST CANCER, STILL LIVING Medications and Allergies Home Medications Medication Instructions Recorded Confirmed Type Multivitamins, Thera [Multivitamin 1 tab PO DAILY 12/09/16 01/22/17 History (formulary)] levETIRAcetam [Keppra] 1,000 mg PO BID 01/22/17 01/22/17 History Allergies Allergy/AdvReac Type Severity Reaction Status Date / Time hydrocodone bitartrate Allergy Itching Verified 01/22/17 16:22 [From Vicodin] Physical Exam Vitals: Vital Signs Temp Pulse Pulse Resp BP BP BP 01/23/17 11:37 70 12 105/71 01/23/17 08:20 16 01/23/17 08:15 97.4 F L 67 16 115/71 01/23/17 08:10 97.4 F L 67 16 115/71 01/23/17 03:01 96.5 F L 69 17 100/64 01/22/17 23:59 97.2 F L 71 17 113/72 01/22/17 21:13 82 20 01/22/17 20:21 86 20 106/68 01/22/17 20:19 97.8 F 88 18 106/72 01/22/17 19:08 87 20 104/67 01/22/17 17:59 77 16 110/77 01/22/17 16:05 98.3 F 98 20 132/76 Pulse Ox 01/23/17 11:37 100 01/23/17 08:20 01/23/17 08:15 94 L 01/23/17 08:10 94 L 01/23/17 03:01 97 01/22/17 23:59 96 01/22/17 21:13 01/22/17 20:21 99 01/22/17 20:19 95 01/22/17 19:08 98 01/22/17 17:59 97 01/22/17 16:05 98 Intake and Output 01/22/17 01/23/17 01/23/17 22:59 06:59 14:59 Intake Total 100 900 180 Output Total 100 150 Balance 0 750 180 Intake: IV 100 700 Sodium Chloride 0.9% 1, 100 700 000 ml @ 100 mls/hr IV . Q10H ONE Rx#:[id number] Oral 200 180 Output: Urine 100 150 Other: Voiding Method Urinal Urinal Urinal Weight 58.967 kg 56.9 kg 56.9 kg Patient Weight 01/24/17 06:59 Weight 56.9 kg Physical exam Gen. appearance oriented 3 in no distress Neck is supple no JVD Lungs good air entry clear to auscultation no rhonchi or wheezing Heart S1-S2 heard regular rate and rhythm no murmurs appreciated Abdomen is soft nontender no organomegaly bowel sounds are intact Neurologically cranial nerves II-12 grossly intact no focal motor or sensory deficits noted, tremors noted Skin no abnormalities appreciated Results CBC & Chem 7: 01/22/17 17:25 01/23/17 11:59 Labs: Abnormal Lab Results - Last 24 Hours (Table) 01/22/17 01/22/17 01/22/17 Range/Units 17:25 17:25 19:25 RBC 3.97 L (4.30-5.90) m/uL MCV 109.0 H (80.0-100.0) fL MCH 37.4 H (25.0-35.0) pg Sodium 135 L (137-145) mmol/L Potassium 3.3 L (3.5-5.1) mmol/L Chloride 88 L (98-107) mmol/L Carbon Dioxide 32 H (22-30) mmol/L BUN 8 L (9-20) mg/dL Glucose 62 L (74-99) mg/dL AST 74 H (17-59) U/L Urine Protein Trace H (Negative) Urine Ketones 1+ H (Negative) Urine Blood Trace H (Negative) Hyaline Casts 3 H (0-2) /lpf Urine Mucus Rare H (None) /hpf U Benzodiazepines Scrn Detected H (NotDetected) Thrombosis Risk Factor Assmnt - Choose All That Apply Each Factor Represents 1 point: Age 41-60 years Each Risk Factor Represents 3 Points: History of DVT/PE Thrombosis Risk Factor Assessment Total Risk Factor Score: 4 Thrombosis Risk Factor Assessment Level: Moderate Risk Assessment and Plan Plan: 1 acute alcohol withdrawal #2 ongoing tobacco use Plan Patient be started on IV multivitamin therapy Continue IV Ativan when necessary for alcohol withdrawal scale We'll start the patient on Librium 20 mg 3 times a day DVT prophylaxis Continue close monitoring Vitals appear to be stable
[2017-01-24] MEDS: LORazepam 2 MG/ML SYRINGE IV PRN ×7 (02:40→12:55)
[2017-01-24] MEDS: LOPERAMIDE 2 MG CAP PO PRN ×2 (06:49→13:38)
[2017-01-24] MEDS: levETIRAcetam 500 MG TAB PO SCH (08:00)
[2017-01-24] MEDS: FAMOTIDINE 20 MG TAB PO SCH (08:00)
[2017-01-24] MEDS: MAGNESIUM SULFATE-D5W PMX 1 GM in DEXTROSE/WATER 1 100ML.BAG IVPB SCH ×2 (08:03→09:25)
[2017-01-24 08:06] VITALS: RESP 18
[2017-01-24] MEDS ORDERED: THIAMINE 100 MG TAB PO SCH (12:00)
--- NOTE | 2017-01-24 15:10 | P.DS ---
Providers Date of admission: 01/22/17 20:05 Attending physician: Adalid Moya Primary care physician: [facility] Course: 46-year-old gentleman with significant use of alcohol comes in the hospital with acute withdrawal from alcohol Patient did not go into delirium tremens Patient was noted to have a higher requirement for Ativan hence was monitor or night Today patient was doing better with intermittent doses of Ativan and continuous by mouth intake of Librium. Patient states that the heel be able to control his symptoms with a taper dose of Librium he would like to go home. Discussed that he in the time period for DTs states that he is not usually sustains such as seizure withdrawal after 24 hours Discussed hospital if his symptoms get worse patient will be discharged home on Librium Physical exam Gen. appearance oriented 3 in no distress Neck is supple no JVD Some tremors noted Lungs good air entry clear to auscultation no rhonchi or wheezing Heart S1-S2 heard regular rate and rhythm no murmurs appreciated Abdomen is soft nontender no organomegaly bowel sounds are intact Neurologically cranial nerves II-12 grossly intact no focal motor or sensory deficits noted Skin no abnormalities appreciated #1 acute alcohol withdrawal #2 ongoing tobacco use Patient Condition at Discharge: Good Plan - Discharge Summary New Discharge Prescriptions: New chlordiazePOXIDE HCl [Librium] 20 mg PO DIRECTED #10 cap Continue Folic Acid 1 mg PO DAILY #30 tablet Multivitamins, Thera [Multivitamin (formulary)] 1 tab PO DAILY Calcium Carbonate [Tums] 500 mg PO QID PRN PRN Reason: Heartburn Famotidine [Pepcid] 20 mg PO BID #60 tab Thiamine [Vitamin B-1] 100 mg PO DAILY #30 tab LORazepam [Ativan] 1 mg PO TID PRN #30 tab PRN Reason: Anxiety levETIRAcetam [Keppra] 1,000 mg PO BID Discharge Medication List Folic Acid 1 mg PO DAILY #30 tablet 11/03/16 [Rx] Multivitamins, Thera [Multivitamin (formulary)] 1 tab PO DAILY 12/09/16 [History ] Calcium Carbonate [Tums] 500 mg PO QID PRN 12/10/16 [Rx] Famotidine [Pepcid] 20 mg PO BID #60 tab 12/10/16 [Rx] LORazepam [Ativan] 1 mg PO TID PRN #30 tab 12/31/16 [Rx] Thiamine [Vitamin B-1] 100 mg PO DAILY #30 tab 12/31/16 [Rx] levETIRAcetam [Keppra] 1,000 mg PO BID 01/22/17 [History] chlordiazePOXIDE HCl [Librium] 20 mg PO DIRECTED #10 cap 01/24/17 [Rx] Follow up Appointment(s)/Referral(s): Lizabeth Burgess MD [Primary Care Provider] - 1-2 days Patient Instructions/Handouts: Alcohol Withdrawal (ED) Discharge Disposition: HOME SELF-CARE
[2017-01-24 16:08] VITALS: BP 127/95; PULSE 66; TEMP 97.6
== END 2017-01-24 17:08 | disposition home or self-care (01) | DRG 897 ==
LOC: EC 16:01 → 6SEL 20:05
PROVIDERS: ADMIT Hospitalist; ATTEND Hospitalist
DX: F10.239 Alcohol dependence with withdrawal, unspecified (principal); F32.9 Major depressive disorder, single episode, unspecified; F17.200 Nicotine dependence, unspecified, uncomplicated; F41.0 Panic disorder [episodic paroxysmal anxiety]; G40.909 Epilepsy, unspecified, not intractable, without status epilepticus; F41.9 Anxiety disorder, unspecified; R19.7 Diarrhea, unspecified; Z79.899 Other long term (current) drug therapy; Z88.5 Allergy status to narcotic agent
CPT/HCPCS: 36415; 71010; 80053; 80306; 80320; 81001; 82075; 82150; 83690; 83735; 84100; 84132; 85025; 85610; 87324; 96361; 96374; 96376; 99285

== ENCOUNTER 2017-02-02 17:55 | Observation (INO) | payer OTHER ==
[~2017-02-02 17:55] MED LIST: THIAMINE 100 MG TAB PO SCH
[2017-02-02] MEDS ORDERED: SODIUM CHLORIDE 0.9% 1,000 ML IV ONE (18:03)
[2017-02-02] MEDS ORDERED: LORazepam 2 MG/ML SYRINGE IV PRN ×2 (18:04)
[2017-02-02] MEDS ORDERED: THIAMINE 100 MG/ML 2 ML VIAL IM STA (18:04)
--- NOTE | 2017-02-02 18:43 | ED ---
Alcohol HPI - General Chief Complaint: Alcohol Stated Complaint: ETOH Source: patient Mode of arrival: ambulatory Limitations: no limitations - History of Present Illness Initial Comments: Patient is a 46-year-old male with a history of chronic alcoholism, seizure disorder presents with a chief complaint alcohol intoxication and withdrawal. He presents via EMS. Patient states that he drank a fifth of vodka, for all beers, and drink Listerine today. Patient states he desires detoxification. She complains of abdominal pain today. Denies vomiting though he admits to nausea. MD Complaint: alcohol intoxication, alcohol withdrawal, alcohol dependence, desires rehab Last Drink: just [employer]ER Previous Visits for Alcohol Intoxication?: Yes Recent Trauma: No Associated Symptoms: nausea, tremors Treatments Prior to Arrival: none Chronic Alcohol Use: Yes - Related Data Home Medications Medication Instructions Recorded Confirmed Multivitamins, Thera [Multivitamin 1 tab PO DAILY 12/09/16 02/02/17 (formulary)] levETIRAcetam [Keppra] 1,000 mg PO BID 01/22/17 02/02/17 Allergies Allergy/AdvReac Type Severity Reaction Status Date / Time hydrocodone bitartrate Allergy Itching Verified 02/02/17 19:16 [From Vicodin] Review of Systems ROS Statement: Those systems with pertinent positive or pertinent negative responses have been documented in the HPI. ROS Other: All systems not noted in ROS Statement are negative. Constitutional: Reports: chills. Denies: fever Eyes: Denies: vision change ENT: Denies: throat pain Respiratory: Denies: cough, dyspnea Cardiovascular: Denies: chest pain Endocrine: Denies: fatigue Gastrointestinal: Reports: abdominal pain, nausea. Denies: vomiting Genitourinary: Denies: dysuria Musculoskeletal: Denies: back pain Skin: Denies: rash Neurological: Denies: headache Past Medical History Past Medical History: Chest Pain / Angina, Deep Vein Thrombosis (DVT), Pneumonia , Seizure Disorder, Skin Disorder Additional Past Medical History / Comment(s): CHRONIC ALCOHOLIC SEIZURES R/T WITHDRAWLS, NECROTIZING FASCIITIS RT HAND WAS HOSPITALIZED 53 DAYS ( 2010 )- WAS ON BEDREST -DEVELOPED DVT'S , C-DIFF APPROX 4 YEARS AGO. BROKEN NOSE(HAD SX) , PANCREATITIS. History of Any Multi-Drug Resistant Organisms: C-DIFF Date of last positivie culture/infection: 2010 MDRO Source:: bowel Past Surgical History: Orthopedic Surgery Additional Past Surgical History / Comment(s): SKIN GRAFT DONE ON RIGHT HAND/ SKIN WAS TAKEN FROM HIS RT THIGH, PT STATED" HAS A STENT OR FILTER TO STOP BLOOD CLOTS FROM GOING TO HIS HEART: SX TO REPAIR BROKEN NOSE. DISLOCATED RT SHOULDER REPAIRED. Past Anesthesia/Blood Transfusion Reactions: No Reported Reaction Additional Past Anesthesia/Blood Transfusion Reaction / Comment(s): CLAUSTERPHOBIA Past Psychological History: Anxiety, Depression, Panic Disorder Smoking Status: Current every day smoker Past Alcohol Use History: Abuse, Daily Past Drug Use History: None Reported - Past Family History Father Family Medical History: Cancer Additional Family Medical History / Comment(s): MULTIPLE MYELOMA. 2006 Mother Family Medical History: Cancer Additional Family Medical History / Comment(s): BREAST CANCER, STILL LIVING General Exam Limitations: no limitations General appearance: alert, in no apparent distress, appears intoxicated Head exam: Present: atraumatic, normocephalic Eye exam: Present: normal appearance, PERRL ENT exam: Present: normal exam, normal oropharynx, mucous membranes moist Neck exam: Present: normal inspection Respiratory exam: Present: normal lung sounds bilaterally. Absent: respiratory distress Cardiovascular Exam: Present: normal rhythm, tachycardia, normal heart sounds GI/Abdominal exam: Present: soft, tenderness (Diffuse) Rectal exam: Present: deferred Extremities exam: Present: normal inspection Back exam: Present: normal inspection Neurological exam: Present: alert, oriented X3 Psychiatric exam: Present: normal affect, normal mood Skin exam: Present: warm, dry, intact Course Vital Signs 02/02/17 18:23 Temperature 98.0 F Pulse Rate 92 Respiratory 14 Rate Blood Pressure 107/72 O2 Sat by Pulse 96 Oximetry Medical Decision Making - Medical Decision Making Patient presents with a chief complaint of alcohol withdrawal and requests detox. Patient is a known history of chronic alcoholism. He states he was clean for 7 years and desires to be clean again. Patient states that he drank a fifth of vodka, 4 beers, and drink Listerine today. Patient admits to going into DTs before. He has been admitted to this hospital in the past. Patient denies suicidal or homicidal ideations at this time. 7:17 PM Laboratory evaluation this patient shows an alcohol level of 291, otherwise patient is mildly leukopenic 3.3. Transaminases are mildly elevated. Patient is evidence of macrocytosis though his hemoglobin is stable. Patient triggered CIWA and was scored at 9. Patient is a poor candidate for outpatient management of alcohol withdrawal as patient will likely continue to drink. We' ll move forward with admission for observation and social work consult for alcohol rehabilitation. This case was discussed with BRIDGET Fisher with Dr. Moya' s group. She accepts admission of this patient for observation and consult to social work. - Lab Data Result diagrams: 02/02/17 18:39 02/02/17 18:39 Lab Results 02/02/17 02/02/17 Range/Units 18:39 18:39 WBC 3.3 L (3.8-10.6) k/uL RBC 4.04 L (4.30-5.90) m/uL Hgb 14.6 (13.0-17.5) gm/dL Hct 43.1 (39.0-53.0) % MCV 106.6 H (80.0-100.0) fL MCH 36.1 H (25.0-35.0) pg MCHC 33.9 (31.0-37.0) g/dL RDW 14.3 (11.5-15.5) % Plt Count 198 (150-450) k/uL Sodium 139 (137-145) mmol/L Potassium 3.8 (3.5-5.1) mmol/L Chloride 90 L (98-107) mmol/L Carbon Dioxide 32 H (22-30) mmol/L Anion Gap 17 mmol/L BUN 14 (9-20) mg/dL Creatinine 0.81 (0.66-1.25) mg/dL Est GFR (MDRD) Af Amer >60 (>60 ml/min/1.73 sqM) Est GFR (MDRD) Non-Af >60 (>60 ml/min/1.73 sqM) Glucose 84 (74-99) mg/dL Calcium 8.9 (8.4-10.2) mg/dL Total Bilirubin 0.8 (0.2-1.3) mg/dL AST 96 H (17-59) U/L ALT 47 (21-72) U/L Alkaline Phosphatase 67 (38-126) U/L Total Protein 7.8 (6.3-8.2) g/dL Albumin 4.6 (3.5-5.0) g/dL Serum Alcohol 291 mg/dL Disposition Clinical Impression: Alcohol withdrawal, Hypokalemia Disposition: ADMITTED IP TO THIS HOSP Condition: Fair Referrals: Lizabeth Burgess MD [Primary Care Provider] - 1-2 days Decision to Admit Reason: Admit from EC - Out of Hospital Transfer - Req. Specs Out of Hospital Transfer - Requested Specifics: Other Non-Acute
[2017-02-02] MEDS: LORazepam 2 MG/ML SYRINGE IV PRN ×3 (18:46→23:44)
[2017-02-02 18:57] LABS: ALT 47 U/L (21-72); AST 96 U/L (17-59); Alkaline Phosphatase 67 U/L (38-126); Anion Gap 17 mmol/L; Blood Urea Nitrogen 14 mg/dL (9-20); Calcium 8.9 mg/dL (8.4-10.2); Carbon Dioxide 32 mmol/L (22-30); Chloride 90 mmol/L (98-107); Glucose 84 mg/dL (74-99); Non-African American GFR(MDRD) >60 (>60 ml/min/1.73 sqM); Potassium 3.8 mmol/L (3.5-5.1); Sodium 139 mmol/L (137-145); Total Bilirubin 0.8 mg/dL (0.2-1.3); Total Protein 7.8 g/dL (6.3-8.2)
[2017-02-02 19:01] LABS: Alcohol 291 mg/dL; Aty Lym Flag Slight; CH 37.1; CHCM 34.9; HCT 43.1 % (39.0-53.0); HDW 2.49; HGB 14.6 gm/dL (13.0-17.5); MCH 36.1 pg (25.0-35.0); MCHC 33.9 g/dL (31.0-37.0); MCV 106.6 fL (80.0-100.0); Macrocytosis Moderate; RBC 4.04 m/uL (4.30-5.90); RDW 14.3 % (11.5-15.5); WBC 3.3 k/uL (3.8-10.6); WBC (Perox) 3.42
[2017-02-02] MEDS ORDERED: NALOXONE 0.4 MG/ML 1 ML VIAL IV PRN (19:22)
[2017-02-02 19:24] LABS: Add Differential Manual Differential
[2017-02-02 19:27] LABS: Nucleated Red Blood Cells 0 /100 WBC (0-0); Total Cells Counted 100
[2017-02-02 19:28] LABS: Manual Review Performed; Target Cells Present
[2017-02-02] MEDS: levETIRAcetam 500 MG TAB PO SCH (20:32)
[2017-02-03] MEDS: LORazepam 2 MG/ML SYRINGE IV PRN ×5 (02:39→12:53)
[2017-02-03 07:42] VITALS: RESP 16; TEMP 98.6
[2017-02-03] MEDS: levETIRAcetam 500 MG TAB PO SCH (08:54)
[2017-02-03 11:31] VITALS: BP 107/69; PULSE 73
[2017-02-03] MEDS ORDERED: MULTIVITAMINS, THERA 1 EACH TAB PO SCH (12:00)
[2017-02-03] MEDS ORDERED: THIAMINE 100 MG TAB PO SCH (12:00)
[2017-02-03 13:50] VITALS: BMI 20.7
--- NOTE | 2017-02-03 15:09 | P.HPIM ---
History of Present Illness 46-year-old male with history of chronic alcohol is on seizure disorder came in with complaints of alcohol intoxication patient was admitted with concerns of withdrawal. Patient did not have any significant withdrawal here but patient has remained which he is intentionally doing but without any other signs of withdrawal. Patient was admitted multiple times in the past and I do not believe patient will Alcohol and there is no much benefit in admitting here in treating him with withdrawal as he he will not quit alcohol. Anyways patient did not have any significant withdrawal during his last hospitalization was discharged in a day and patient will be discharged on Librium and extensive counseling was provided to follow up in [place] for drug rehabilitation on Sunday. Nothing much else can be offered to the patient at this time. Patient does have his Right home. He took which she will continue patient will be provided prescription for Librium for 3 more days. And states his last drink was 2 days ago but he's serum alcohol level was 291. Patient is not supposed to have withdrawals today because of his all call until being 200 last night. Review of Systems REVIEW OF SYSTEMS: CONSTITUTIONAL: No fever, no malaise, no fatigue. HEENT: No recent visual problems or hearing problems. Denied any sore throat. CARDIOVASCULAR: No chest pain, orthopnea, PND, no palpitations, no syncope. PULMONARY: No shortness of breath, no cough, no hemoptysis. GASTROINTESTINAL: No diarrhea, no nausea, no vomiting, no abdominal pain. Normoactive bowel sounds. NEUROLOGICAL: No headaches, no weakness, no numbness. HEMATOLOGICAL: Denies any bleeding or petechiae. GENITOURINARY: Denies any burning micturition, frequency, or urgency. MUSCULOSKELETAL/RHEUMATOLOGICAL: Denies any joint pain, swelling, or any muscle pain. ENDOCRINE: Denies any polyuria or polydipsia. The rest of the 14-point review of systems is negative. Past Medical History Past Medical History: Chest Pain / Angina, Deep Vein Thrombosis (DVT), Pneumonia , Seizure Disorder, Skin Disorder Additional Past Medical History / Comment(s): CHRONIC ALCOHOLIC SEIZURES R/T WITHDRAWLS, NECROTIZING FASCIITIS RT HAND WAS HOSPITALIZED 53 DAYS ( 2010 )- WAS ON BEDREST -DEVELOPED DVT'S , C-DIFF APPROX 4 YEARS AGO. BROKEN NOSE(HAD SX) , PANCREATITIS. History of Any Multi-Drug Resistant Organisms: None Reported Date of last positivie culture/infection: 2010 MDRO Source:: bowel Past Surgical History: Orthopedic Surgery Additional Past Surgical History / Comment(s): SKIN GRAFT DONE ON RIGHT HAND/ SKIN WAS TAKEN FROM HIS RT THIGH, PT STATED" HAS A STENT OR FILTER TO STOP BLOOD CLOTS FROM GOING TO HIS HEART: SX TO REPAIR BROKEN NOSE. DISLOCATED RT SHOULDER REPAIRED. Past Anesthesia/Blood Transfusion Reactions: No Reported Reaction Additional Past Anesthesia/Blood Transfusion Reaction / Comment(s): CLAUSTERPHOBIA Smoking Status: Current every day smoker - Past Family History Father Family Medical History: Cancer Additional Family Medical History / Comment(s): MULTIPLE MYELOMA. 2006 Mother Family Medical History: Cancer Additional Family Medical History / Comment(s): BREAST CANCER, STILL LIVING Medications and Allergies Home Medications Medication Instructions Recorded Confirmed Type Multivitamins, Thera [Multivitamin 1 tab PO DAILY 12/09/16 02/02/17 History (formulary)] levETIRAcetam [Keppra] 1,000 mg PO BID 01/22/17 02/02/17 History Allergies Allergy/AdvReac Type Severity Reaction Status Date / Time hydrocodone bitartrate Allergy Itching Verified 02/02/17 19:16 [From Vicodin] Physical Exam Vitals: Vital Signs Temp Pulse Pulse Resp BP BP Pulse Ox 02/03/17 11:30 98.6 F 73 16 107/69 94 L 02/03/17 07:41 98.6 F 78 16 100/67 95 02/03/17 04:00 98.4 F 74 18 104/66 100 02/03/17 03:45 86 18 02/02/17 23:52 98.4 F 97 18 108/61 97 02/02/17 23:25 83 18 02/02/17 20:00 98.3 F 81 18 119/74 95 02/02/17 19:53 98.4 F 75 16 115/81 95 02/02/17 18:23 98.0 F 92 14 107/72 96 Intake and Output 02/03/17 02/03/17 02/03/17 06:59 14:59 22:59 Intake Total 450 Balance 450 Intake: Oral 450 Other: Voiding Method Toilet # Voids 2 1 Weight 59.874 kg Patient Weight 02/04/17 06:59 Weight 59.874 kg PHYSICAL EXAMINATION: GENERAL: The patient is alert and oriented x3, not in any acute distress. Well developed, well nourished. Patient is pretending tremor for Ativan HEENT: Pupils are round and equally reacting to light. EOMI. No scleral icterus. No conjunctival pallor. Normocephalic, atraumatic. No pharyngeal erythema. No thyromegaly. CARDIOVASCULAR: S1 and S2 present. No murmurs, rubs, or gallops. PULMONARY: Chest is clear to auscultation, no wheezing or crackles. ABDOMEN: Soft, nontender, nondistended, normoactive bowel sounds. No palpable organomegaly. MUSCULOSKELETAL: No joint swelling or deformity. EXTREMITIES: No cyanosis, clubbing, or pedal edema. NEUROLOGICAL: Gross neurological examination did not reveal any focal deficits. SKIN: No rashes. Results CBC & Chem 7: 02/02/17 18:39 02/02/17 18:39 Labs: Abnormal Lab Results - Last 24 Hours (Table) 02/02/17 02/02/17 Range/Units 18:39 18:39 WBC 3.3 L (3.8-10.6) k/uL RBC 4.04 L (4.30-5.90) m/uL MCV 106.6 H (80.0-100.0) fL MCH 36.1 H (25.0-35.0) pg Lymphocytes # (Manual) 0.86 L (1.0-4.8) k/uL Chloride 90 L (98-107) mmol/L Carbon Dioxide 32 H (22-30) mmol/L AST 96 H (17-59) U/L Assessment and Plan Plan: 1 alcohol intoxication #2 alcohol withdrawal #3 mild acute alcoholic hepatitis #4 macrocytosis secondary to excessive alcohol use #5 Tobacco abuse. Patient will be discharged on Librium extensive counseling regarding alcohol abuse and Traci abuse was provided but I do not believe that patient will quit alcohol anyways in spite of this. Patient was counseled to follow up in [place] rehabitation program.
--- NOTE | 2017-02-03 15:09 | P.DS ---
Providers Date of admission: 02/02/17 19:23 Attending physician: Adalid Moya Primary care physician: Lizabeth Burgess [facility] Course: Refer to HPI Patient Condition at Discharge: Fair Plan - Discharge Summary New Discharge Prescriptions: New chlordiazePOXIDE HCl [Librium] 20 mg PO TID #10 capsule No Action Multivitamins, Thera [Multivitamin (formulary)] 1 tab PO DAILY levETIRAcetam [Keppra] 1,000 mg PO BID Discharge Medication List Multivitamins, Thera [Multivitamin (formulary)] 1 tab PO DAILY 12/09/16 [History ] levETIRAcetam [Keppra] 1,000 mg PO BID 01/22/17 [History] chlordiazePOXIDE HCl [Librium] 20 mg PO TID #10 capsule 02/03/17 [Rx] Follow up Appointment(s)/Referral(s): Lizabeth Burgess MD [Primary Care Provider] - 3 Days Discharge Disposition: HOME SELF-CARE
== END 2017-02-03 14:54 | disposition home or self-care (01) ==
LOC: EC 17:55 → 3OBS 19:23
PROVIDERS: ADMIT Student in an Organized Health Care Education/Training Program; ATTEND Hospitalist
DX: F10.239 Alcohol dependence with withdrawal, unspecified (principal); F10.229 Alcohol dependence with intoxication, unspecified; K70.10 Alcoholic hepatitis without ascites; Y90.8 Blood alcohol level of 240 mg/100 ml or more; E87.6 Hypokalemia; D75.89 Other specified diseases of blood and blood-forming organs; F17.200 Nicotine dependence, unspecified, uncomplicated; G40.909 Epilepsy, unspecified, not intractable, without status epilepticus; Z79.899 Other long term (current) drug therapy; Z88.5 Allergy status to narcotic agent; Z86.19 Personal history of other infectious and parasitic diseases; Z86.718 Personal history of other venous thrombosis and embolism
CPT/HCPCS: 96372 ×2; 96374; 96361 ×2; 99285; 96376 ×2; 36415; 80053; 85025; 80320; G0378 ×2; J2060 ×2; J3411

== ENCOUNTER 2017-02-11 16:02 | Observation (INO) | payer OTHER ==
[2017-02-11] MEDS ORDERED: SODIUM CHLORIDE 0.9% 1,000 ML with MVI, ADULT NO.4 WITH VIT K 10 ML, THIAMINE 100 MG, F... IV ONE ×4 (16:30)
[2017-02-11] MEDS: LORazepam 2 MG/ML SYRINGE IV PRN ×6 (16:36→23:09)
--- NOTE | 2017-02-11 16:38 | ED ---
General Adult HPI - General Chief complaint: Alcohol Stated complaint: Withdrawls Time Seen by Provider: 02/11/17 16:16 Source: patient, EMS, RN notes reviewed, old records reviewed Mode of arrival: EMS Limitations: no limitations - History of Present Illness Initial comments: Chief complaint and history of present illness a 46-year-old male brought emergency room and illness. Patient reports that she is having alcohol withdrawal. He last drank alcohol, beer, at 9 AM. Patient was in hospital for alcohol withdrawal approximately 10 days ago. He been through rehab programs 13 times. Patient denies any other drugs. Denies head injuries. Otherwise alert and answering questions appropriately. - Related Data Home Medications Medication Instructions Recorded Confirmed Multivitamins, Thera [Multivitamin 1 tab PO DAILY 12/09/16 02/11/17 (formulary)] levETIRAcetam [Keppra] 1,000 mg PO BID 01/22/17 02/11/17 Allergies Allergy/AdvReac Type Severity Reaction Status Date / Time hydrocodone bitartrate Allergy Itching Verified 02/11/17 16:37 [From Vicodin] Review of Systems ROS Statement: Those systems with pertinent positive or pertinent negative responses have been documented in the HPI. Review of systems patient complains of pain all over. States he has withdrawal problems when he stopped drinking alcohol last alcohol 7 hours ago. No nausea no vomiting. Denies chest pain denies rashes denies falls denies injuries. All systems are reviewed. Past medical problems angina, DVT, pneumonia, seizures with withdrawal. A skin disorder and chronic alcoholism. She had skin grafts to his arm. Family history father of multiple myeloma. The patient has ALLERGIES to hydrocodone. He does smoke strongly encouraged to drink patient states she's not alcoholic. ROS Other: All systems not noted in ROS Statement are negative. Past Medical History Past Medical History: Chest Pain / Angina, Deep Vein Thrombosis (DVT), Pneumonia , Seizure Disorder, Skin Disorder Additional Past Medical History / Comment(s): CHRONIC ALCOHOLIC SEIZURES R/T WITHDRAWLS, NECROTIZING FASCIITIS RT HAND WAS HOSPITALIZED 53 DAYS ( 2010 )- WAS ON BEDREST -DEVELOPED DVT'S , C-DIFF APPROX 4 YEARS AGO. BROKEN NOSE(HAD SX) , PANCREATITIS. History of Any Multi-Drug Resistant Organisms: None Reported Date of last positivie culture/infection: 2010 MDRO Source:: bowel Past Surgical History: Orthopedic Surgery Additional Past Surgical History / Comment(s): SKIN GRAFT DONE ON RIGHT HAND/ SKIN WAS TAKEN FROM HIS RT THIGH, PT STATED" HAS A STENT OR FILTER TO STOP BLOOD CLOTS FROM GOING TO HIS HEART: SX TO REPAIR BROKEN NOSE. DISLOCATED RT SHOULDER REPAIRED. Past Anesthesia/Blood Transfusion Reactions: No Reported Reaction Additional Past Anesthesia/Blood Transfusion Reaction / Comment(s): CLAUSTERPHOBIA Past Psychological History: Anxiety, Depression, Panic Disorder Smoking Status: Current every day smoker Past Alcohol Use History: Abuse, Daily, Heavy Past Drug Use History: None Reported - Past Family History Father Family Medical History: Cancer Additional Family Medical History / Comment(s): MULTIPLE MYELOMA. 2006 Mother Family Medical History: Cancer Additional Family Medical History / Comment(s): BREAST CANCER, STILL LIVING General Exam - General Exam Comments Initial Comments: General: The patient is awake and alert, alert and answering questions appropriate. No tremors. Complains of just aches and pains to his body. No signs temp 98.5 pulse 82 respiratory rate 20 pulse ox 90% room air blood pressure 1 weight over 65 Eye: Pupils are equal, round and reactive to light, extra-ocular movements are intact ; there is normal conjunctiva bilaterally. No signs of icterus. No nystagmus Ears, nose, mouth and throat: There are moist mucous membranes and no oral lesions. Mildly reddened pharynx but no complaint of sore throat, no exudate. Neck: The neck is supple, there is no tenderness, no anterior cervical lymphadenopathy , no JVD, no evidence of meningeal irritation with neck flexion, no meningismus. Cardiovascular: There is a regular rate and rhythm. No murmur, rub or gallop is appreciated. Respiratory: Lungs are clear to auscultation, respirations are non-labored, breath sounds are equal. No wheezes, stridor, rales, or rhonchi. Gastrointestinal: Soft, non-distended, non-tender abdomen without masses or organomegaly noted. There is no rebound or guarding present. No CVA tenderness. Bowel sounds are unremarkable. Back: No specific complaint just body aches. Musculoskeletal: Normal ROM, no tenderness, There is no pedal edema. There is no calf tenderness or swelling. Sensation intact. Pulses equal bilaterally 2+. Neurological: CN II-XII intact, There are no obvious motor or sensory deficits. Coordination appears grossly intact. Speech is normal. No focal or lateralizing findings. Skin: Skin is warm and dry and no rashes or lesions are noted. Psychiatric: History of anxiety and panic disorder as well as depression. Denies thoughts of suicide . Limitations: no limitations Course Vital Signs 02/11/17 02/11/17 02/11/17 16:07 16:51 17:50 Temperature 98.5 F Pulse Rate 82 80 Respiratory 20 20 Rate Blood Pressure 108/65 111/75 O2 Sat by Pulse 98 94 L 95 Oximetry Medical Decision Making - Medical Decision Making Laboratory results find pubic picture white count of only 2.7, hemoglobin 14.8 hematocrit 45. INR 1.1, potassium low at 3.2 this being supplemented the IV. BUN 10 creatinine 0.8 GFR greater than 60. Glucose 77. Urine positive for benzodiazepines. Back upon arrival 0.309 - Lab Data Result diagrams: 02/11/17 16:25 02/11/17 16:25 Lab Results 02/11/17 02/11/17 02/11/17 Range/Units 16:25 16:25 16:25 WBC 2.7 L (3.8-10.6) k/uL RBC 4.08 L (4.30-5.90) m/uL Hgb 14.8 (13.0-17.5) gm/dL Hct 45.1 (39.0-53.0) % MCV 110.4 H (80.0-100.0) fL MCH 36.3 H (25.0-35.0) pg MCHC 32.9 (31.0-37.0) g/dL RDW 14.7 (11.5-15.5) % Plt Count 172 (150-450) k/uL Neutrophils % 44 % Lymphocytes % 34 % Monocytes % 14 % Eosinophils % 0 % Basophils % 2 % Neutrophils # 1.2 L (1.3-7.7) k/uL Lymphocytes # 0.9 L (1.0-4.8) k/uL Monocytes # 0.4 (0-1.0) k/uL Eosinophils # 0.0 (0-0.7) k/uL Basophils # 0.1 (0-0.2) k/uL Manual Slide Review Performed Macrocytosis Marked Target Cells Present PT 10.6 (9.0-12.0) sec INR 1.1 (<1.2) Sodium 142 (137-145) mmol/L Potassium 3.2 L (3.5-5.1) mmol/L Chloride 96 L (98-107) mmol/L Carbon Dioxide 26 (22-30) mmol/L Anion Gap 20 mmol/L BUN 10 (9-20) mg/dL Creatinine 0.80 (0.66-1.25) mg/dL Est GFR (MDRD) Af Amer >60 (>60 ml/min/1.73 sqM) Est GFR (MDRD) Non-Af >60 (>60 ml/min/1.73 sqM) Glucose 77 (74-99) mg/dL Calcium 8.6 (8.4-10.2) mg/dL Phosphorus 3.3 (2.5-4.5) mg/dL Magnesium 1.4 L (1.6-2.3) mg/dL Total Bilirubin 0.8 (0.2-1.3) mg/dL AST 103 H (17-59) U/L ALT 52 (21-72) U/L Alkaline Phosphatase 80 (38-126) U/L Total Protein 7.0 (6.3-8.2) g/dL Albumin 4.2 (3.5-5.0) g/dL Amylase 88 (30-110) U/L Lipase 138 (23-300) U/L Urine Opiates Screen (NotDetected) Ur Oxycodone Screen (NotDetected) Urine Methadone Screen (NotDetected) Ur Propoxyphene Screen (NotDetected) Ur Barbiturates Screen (NotDetected) U Tricyclic Antidepress (NotDetected) Ur Phencyclidine Scrn (NotDetected) Ur Amphetamines Screen (NotDetected) U Methamphetamines Scrn (NotDetected) U Benzodiazepines Scrn (NotDetected) Urine Cocaine Screen (NotDetected) U Marijuana (THC) Screen (NotDetected) 02/11/17 Range/Units 17:25 WBC (3.8-10.6) k/uL RBC (4.30-5.90) m/uL Hgb (13.0-17.5) gm/dL Hct (39.0-53.0) % MCV (80.0-100.0) fL MCH (25.0-35.0) pg MCHC (31.0-37.0) g/dL RDW (11.5-15.5) % Plt Count (150-450) k/uL Neutrophils % % Lymphocytes % % Monocytes % % Eosinophils % % Basophils % % Neutrophils # (1.3-7.7) k/uL Lymphocytes # (1.0-4.8) k/uL Monocytes # (0-1.0) k/uL Eosinophils # (0-0.7) k/uL Basophils # (0-0.2) k/uL Manual Slide Review Macrocytosis Target Cells PT (9.0-12.0) sec INR (<1.2) Sodium (137-145) mmol/L Potassium (3.5-5.1) mmol/L Chloride (98-107) mmol/L Carbon Dioxide (22-30) mmol/L Anion Gap mmol/L BUN (9-20) mg/dL Creatinine (0.66-1.25) mg/dL Est GFR (MDRD) Af Amer (>60 ml/min/1.73 sqM) Est GFR (MDRD) Non-Af (>60 ml/min/1.73 sqM) Glucose (74-99) mg/dL Calcium (8.4-10.2) mg/dL Phosphorus (2.5-4.5) mg/dL Magnesium (1.6-2.3) mg/dL Total Bilirubin (0.2-1.3) mg/dL AST (17-59) U/L ALT (21-72) U/L Alkaline Phosphatase (38-126) U/L Total Protein (6.3-8.2) g/dL Albumin (3.5-5.0) g/dL Amylase (30-110) U/L Lipase (23-300) U/L Urine Opiates Screen Not Detected (NotDetected) Ur Oxycodone Screen Not Detected (NotDetected) Urine Methadone Screen Not Detected (NotDetected) Ur Propoxyphene Screen Not Detected (NotDetected) Ur Barbiturates Screen Not Detected (NotDetected) U Tricyclic Antidepress Not Detected (NotDetected) Ur Phencyclidine Scrn Not Detected (NotDetected) Ur Amphetamines Screen Not Detected (NotDetected) U Methamphetamines Scrn Not Detected (NotDetected) U Benzodiazepines Scrn Detected H (NotDetected) Urine Cocaine Screen Not Detected (NotDetected) U Marijuana (THC) Screen Not Detected (NotDetected) Disposition Clinical Impression: Alcohol withdrawal, Hypokalemia Disposition: ADMITTED IP TO THIS HOSP Condition: Fair Referrals: Lizabeth Burgess MD [Primary Care Provider] - 1-2 days
[2017-02-11 16:41] LABS: Aty Lym Flag Slight; Basophils # (A) 0.1 k/uL (0-0.2); Basophils % (A) 2 %; CH 37.3; CHCM 33.9; Eosinophils % (A) 0 %; HCT 45.1 % (39.0-53.0); HDW 2.51; HGB 14.8 gm/dL (13.0-17.5); INR 1.1 (<1.2); Luc # (Auto) 0.16; Luc % (Auto) 6; Lymphocytes # (A) 0.9 k/uL (1.0-4.8); Lymphocytes % (A) 34 %; MCH 36.3 pg (25.0-35.0); MCHC 32.9 g/dL (31.0-37.0); MCV 110.4 fL (80.0-100.0); Macrocytosis Marked; Mean Platelet Volume 7.2; Monocytes # (A) 0.4 k/uL (0-1.0); Monocytes % (A) 14 %; Neutrophils # (A) 1.2 k/uL (1.3-7.7); Neutrophils % (A) 44 %; Prothrombin Time 10.6 sec (9.0-12.0); RBC 4.08 m/uL (4.30-5.90); RDW 14.7 % (11.5-15.5); WBC 2.7 k/uL (3.8-10.6); WBC (Perox) 2.52
[2017-02-11 16:48] LABS: ALT 52 U/L (21-72); AST 103 U/L (17-59); Alkaline Phosphatase 80 U/L (38-126); Amylase 88 U/L (30-110); Anion Gap 20 mmol/L; Blood Urea Nitrogen 10 mg/dL (9-20); Calcium 8.6 mg/dL (8.4-10.2); Carbon Dioxide 26 mmol/L (22-30); Chloride 96 mmol/L (98-107); Glucose 77 mg/dL (74-99); Magnesium 1.4 mg/dL (1.6-2.3); Non-African American GFR(MDRD) >60 (>60 ml/min/1.73 sqM); Phosphorous 3.3 mg/dL (2.5-4.5); Potassium 3.2 mmol/L (3.5-5.1); Sodium 142 mmol/L (137-145); Total Bilirubin 0.8 mg/dL (0.2-1.3)
[2017-02-11 17:03] LABS: Manual Review Performed
[2017-02-11 17:04] LABS: Target Cells Present
[2017-02-11] MEDS ORDERED: POTASSIUM CHLORIDE 20 MEQ, LIDOCAINE 2% INJ 20 MG in SODIUM CHLORIDE 0.9% 100 ML IVPB ONE (18:27)
[2017-02-11] MEDS ORDERED: IBUPROFEN 400 MG TAB PO PRN (18:31)
[2017-02-11] MEDS ORDERED: NALOXONE 0.4 MG/ML 1 ML VIAL IV PRN (18:31)
[2017-02-11] MEDS: FAMOTIDINE 20 MG TAB PO SCH (20:07)
[2017-02-11 20:30] VITALS: BMI 19.8
[2017-02-12] MEDS: LORazepam 2 MG/ML SYRINGE IV PRN ×13 (01:44→23:46)
[2017-02-12 08:13] LABS: CH 36.7; CHCM 33.9; HCT 39.9 % (39.0-53.0); HDW 2.55; HGB 13.2 gm/dL (13.0-17.5); MCH 36.1 pg (25.0-35.0); MCHC 33.2 g/dL (31.0-37.0); MCV 108.9 fL (80.0-100.0); Macrocytosis Marked; Mean Platelet Volume 8.2; RBC 3.66 m/uL (4.30-5.90); RDW 14.4 % (11.5-15.5); WBC (Perox) 3.14
[2017-02-12] MEDS: FAMOTIDINE 20 MG TAB PO SCH ×2 (08:17→19:51)
[2017-02-12] MEDS: POTASSIUM CHLORIDE ER 20 MEQ TAB.ER PO SCH (08:17)
[2017-02-12 10:57] LABS: Add Differential Manual Differential
[2017-02-12 11:09] LABS: Nucleated Red Blood Cells 0 /100 WBC (0-0)
[2017-02-12 11:10] LABS: Manual Review Performed
[2017-02-12 11:22] LABS: Total Cells Counted 200
[2017-02-12 11:25] LABS: Target Cells Present
[2017-02-12] MEDS ORDERED: LOPERAMIDE 2 MG CAP PO PRN (15:15)
[2017-02-12] MEDS ORDERED: LOPERAMIDE 2 MG CAP PO STA (15:15)
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
[2017-02-13] MEDS: LORazepam 2 MG/ML SYRINGE IV PRN ×4 (04:14→13:33)
[2017-02-13 07:44] VITALS: BP 119/84; PULSE 64; RESP 18; TEMP 98
[2017-02-13] MEDS: FAMOTIDINE 20 MG TAB PO SCH (09:32)
[2017-02-13] MEDS: POTASSIUM CHLORIDE ER 20 MEQ TAB.ER PO SCH (09:33)
--- NOTE | 2017-02-14 01:01 | P.DS ---
Providers Date of admission: 02/12/17 15:40 Expected date of discharge: 02/13/17 Attending physician: Lino Schultz MD Primary care [facility] Course: Discharge diagnosis #1 acute alcoholic withdrawal symptoms #2 multiple admissions with similar complaints #3 history of alcohol withdrawals seizures #4 history of DVT\ #5 hypokalemia and hypomagnesemia #6 macrocytosis, mild neutropenia, and thrombocytopenia due to alcohol abuse DVT prophylaxis Hospital course Patient is a 46-year-old male with a past medical history of alcohol abuse, GERD , alcohol seizures brought emergency room with alcohol withdrawal symptoms. Patient reports that she is having alcohol withdrawal. He last drank alcohol, beer, at 9 AM. Patient was recently admitted to the hospital for similar symptoms. Patient was in hospital for alcohol withdrawal approximately 10 days ago. He been through rehab programs 13 times. Patient denies any other drugs. Denies head injuries. Patient denied any chest pain or short of breath. Patient says that has been shaky and not feeling well. Denied any headache or dizziness or lightheadedness. 02/13/2017 Patient did improve symptomatically. Shakiness of the hands much improved. Patient wants to follow with [facility] for rehab. Until rehab admission patient will be staying at her parent's place. Patient is tolerating diet and ambulating without support. Patient will be discharged home in stable condition. No fever no chills. No chest pain or short of breath. Patient will be continued on Librium 5 mg 4 times a day upon discharge for alcohol withdrawal symptoms. Patient was continued on IV fluids with thiamine and multivitamins. Continue with CIWA scale for alcohol withdrawal symptoms. continued with Keppra and followed closely. Monitored for DTs. Patient is stable to be discharged. Symptomatically much improved. Patient was counseled extensively for alcohol abuse. PHYSICAL EXAMINATION: Patient is lying in the bed comfortably, no acute distress, awake alert and oriented.. HEENT: Normocephalic. Neck is supple. Pupils reactive. Nostrils clear. Oral cavity is moist. Ears reveal no drainage. Neck reveals no JVD, carotid bruits, or thyromegaly. CHEST EXAMINATION: Trachea is central. Symmetrical expansion. Lung tracy clear to auscultation and percussion. CARDIAC: Normal S1, S2 with no gallops. No murmurs ABDOMEN: Soft. Bowel sounds normal. No organomegaly. No abdominal bruits. Extremities reveal no edema. No clubbing or cyanosis Neurologically awake, alert, oriented x3 with well-coordinated movements. Minimal tremors of bilateral hands Skin: no rash or skin lesions Musculoskeletal: no joint swelling or deformity. Patient Condition at Discharge: Fair Plan - Discharge Summary New Discharge Prescriptions: New chlordiazePOXIDE HCL [Librium] 5 mg PO QID PRN #20 capsule PRN Reason: Alcohol Withdrawal Thiamine [Vitamin B-1] 100 mg PO DAILY #30 tablet Continue Multivitamins, Thera [Multivitamin (formulary)] 1 tab PO DAILY levETIRAcetam [Keppra] 1,000 mg PO BID Discharge Medication List Multivitamins, Thera [Multivitamin (formulary)] 1 tab PO DAILY 12/09/16 [History ] levETIRAcetam [Keppra] 1,000 mg PO BID 01/22/17 [History] Thiamine [Vitamin B-1] 100 mg PO DAILY #30 tablet 02/13/17 [Rx] chlordiazePOXIDE HCL [Librium] 5 mg PO QID PRN #20 capsule 02/13/17 [Rx] Follow up Appointment(s)/Referral(s): Lizabeth Burgess MD [Primary Care Provider] - 1-2 days Patient Instructions/Handouts: Abuse of Alcohol (DC) Discharge Disposition: HOME SELF-CARE
== END 2017-02-13 13:50 | disposition home or self-care (01) ==
LOC: EC 16:02 → 3OBS 18:31 → OBSVTOIN 02-12 15:40 → INTOOBSV 02-12 15:40
PROVIDERS: ADMIT Internal Medicine; ATTEND Internal Medicine
DX: F10.239 Alcohol dependence with withdrawal, unspecified (principal); D69.59 Other secondary thrombocytopenia; D70.9 Neutropenia, unspecified; E83.42 Hypomagnesemia; G40.909 Epilepsy, unspecified, not intractable, without status epilepticus; E87.6 Hypokalemia; D75.89 Other specified diseases of blood and blood-forming organs; F32.9 Major depressive disorder, single episode, unspecified; F41.0 Panic disorder [episodic paroxysmal anxiety]; K21.9 Gastro-esophageal reflux disease without esophagitis; F17.210 Nicotine dependence, cigarettes, uncomplicated; Z86.19 Personal history of other infectious and parasitic diseases; Z86.718 Personal history of other venous thrombosis and embolism; Z88.5 Allergy status to narcotic agent; Z79.899 Other long term (current) drug therapy
CPT/HCPCS: 96366 ×3; 96376 ×4; 96365; 96375; 99285; 36415; 80053; 82150; 83690; 83735; 84100; 85025 ×2; 85610; 80306; G0378 ×4; J2001; J2060 ×3; J3411; J3480

== ENCOUNTER 2017-02-25 18:31 | Emergency (ER) | payer OTHER ==
[2017-02-25] MEDS ORDERED: chlordiazePOXIDE 25 MG CAP PO STA (18:53)
--- NOTE | 2017-02-25 19:04 | ED ---
General Adult HPI - General Chief complaint: Psychiatric Symptoms Stated complaint: ETOH Detox Time Seen by Provider: 02/25/17 18:36 Source: patient, EMS, RN notes reviewed Mode of arrival: EMS Limitations: no limitations - History of Present Illness Initial comments: 46-year-old male presents to the emergency department with a chief complaint of alcoholism. Patient states that he is a daily drinker. Patient states he is here because he is concerned that he may go through withdrawal. Patient states he wants to stop using alcohol. Patient denies any suicidal or homicidal. Patient states that he did drink today. Patient denies any chills nausea vomiting. Patient states that he's gone to rehab about 13 times is unable to stay sober. Patient thought that maybe we could help him with something to help him get through his withdrawals. Patient denies any recent fever, chills, shortness of breath, chest pain, back pain, abdominal pain, nausea vomiting, numbness or tingling, dysuria or hematuria, constipation or diarrhea, headaches or visual changes, or any other current symptoms. - Related Data Home Medications Medication Instructions Recorded Confirmed Multivitamins, Thera [Multivitamin 1 tab PO DAILY 12/09/16 02/25/17 (formulary)] Famotidine [Pepcid] 20 mg PO DAILY 02/25/17 02/25/17 Previous Rx's Medication Instructions Recorded Thiamine [Vitamin B-1] 100 mg PO DAILY #30 tablet 02/13/17 chlordiazePOXIDE HCl [Librium] 25 mg PO DIRECTED 6 Days 02/25/17 Allergies Allergy/AdvReac Type Severity Reaction Status Date / Time hydrocodone bitartrate Allergy Itching Verified 02/25/17 19:00 [From Vicodin] Review of Systems ROS Statement: Those systems with pertinent positive or pertinent negative responses have been documented in the HPI. ROS Other: All systems not noted in ROS Statement are negative. Past Medical History Past Medical History: Chest Pain / Angina, Deep Vein Thrombosis (DVT), Pneumonia , Seizure Disorder, Skin Disorder Additional Past Medical History / Comment(s): CHRONIC ALCOHOLIC SEIZURES R/T WITHDRAWLS, NECROTIZING FASCIITIS RT HAND WAS HOSPITALIZED 53 DAYS ( 2010 )- WAS ON BEDREST -DEVELOPED DVT'S , C-DIFF APPROX 4 YEARS AGO. BROKEN NOSE(HAD SX) , PANCREATITIS. History of Any Multi-Drug Resistant Organisms: C-DIFF Date of last positivie culture/infection: 2010 MDRO Source:: bowel Past Surgical History: Orthopedic Surgery Additional Past Surgical History / Comment(s): SKIN GRAFT DONE ON RIGHT HAND/ SKIN WAS TAKEN FROM HIS RT THIGH, PT STATED" HAS A STENT OR FILTER TO STOP BLOOD CLOTS FROM GOING TO HIS HEART: SX TO REPAIR BROKEN NOSE. DISLOCATED RT SHOULDER REPAIRED. Past Anesthesia/Blood Transfusion Reactions: No Reported Reaction Additional Past Anesthesia/Blood Transfusion Reaction / Comment(s): CLAUSTERPHOBIA Past Psychological History: Anxiety, Depression, Panic Disorder Smoking Status: Current every day smoker Past Alcohol Use History: Abuse, Daily, Heavy Past Drug Use History: None Reported - Past Family History Father Family Medical History: Cancer Additional Family Medical History / Comment(s): MULTIPLE MYELOMA. 2006 Mother Family Medical History: Cancer Additional Family Medical History / Comment(s): BREAST CANCER, STILL LIVING General Exam Limitations: no limitations General appearance: alert, in no apparent distress Head exam: Present: atraumatic, normocephalic, normal inspection ENT exam: Present: normal exam, mucous membranes moist Neck exam: Present: normal inspection. Absent: tenderness, meningismus, lymphadenopathy Respiratory exam: Present: normal lung sounds bilaterally. Absent: respiratory distress, wheezes, rales, rhonchi, stridor Cardiovascular Exam: Present: regular rate, normal rhythm, normal heart sounds. Absent: systolic murmur, diastolic murmur, rubs, gallop, clicks Neurological exam: Present: alert, oriented X3, normal gait Psychiatric exam: Present: normal affect, normal mood Skin exam: Present: warm, dry, intact, normal color. Absent: rash Course Vital Signs 02/25/17 02/25/17 18:39 20:05 Temperature 98.5 F 97.7 F Pulse Rate 73 63 Respiratory 18 17 Rate Blood Pressure 127/89 117/75 O2 Sat by Pulse 96 94 L Oximetry - Reevaluation(s) Reevaluation #1: 02/25/17 20:51 Patient was able to get up and walk around the emergency room without difficulty. This time patient does appear to be clinically. EKG Findings - EKG Comments: EKG Findings:: normal sinus rhythm 62 bpm, normal axis, no atopy, no S-T depressions or elevations, Medical Decision Making - Medical Decision Making 46-year-old male presents emergency Department chief complaint of help with alcohol withdrawal. At this time we did write him a prescription for Librium. Patient is alert 193 he is up and ambulating around the emergency department. This time the patient is clinically sober. At this time we did discuss this with the patient. We did give him outpatient referral to psychiatry as well as rehabilitation centers. We did discuss return parameters and all of his questions. He stated he understood and he is given the plan. At this time he will be discharged home. Disposition Clinical Impression: Alcoholism Disposition: HOME SELF-CARE Condition: Stable Instructions: Abuse of Alcohol (ED) Additional Instructions: Please use medication as discussed. Please follow up with family doctor if symptoms have not improved over the next two days. Please return to the emergency room if your symptoms increase or worsen or for any other concerns. Prescriptions: chlordiazePOXIDE HCl [Librium] 25 mg PO DIRECTED 6 Days Referrals: Lizabeth Burgess MD [Primary Care Provider] - 1-2 days Time of Disposition: 20:52
[2017-02-25 20:55] VITALS: BP 117/71; PULSE 56; RESP 15; TEMP 97.4
== END 2017-02-25 21:03 | disposition home or self-care (01) ==
LOC: EC 18:31
DX: F10.20 Alcohol dependence, uncomplicated (principal); F32.9 Major depressive disorder, single episode, unspecified; F41.0 Panic disorder [episodic paroxysmal anxiety]; F17.200 Nicotine dependence, unspecified, uncomplicated; Z79.899 Other long term (current) drug therapy; Z88.5 Allergy status to narcotic agent
CPT/HCPCS: 93005; 99284

== ENCOUNTER 2017-03-02 12:53 | Inpatient (IN) | payer OTHER ==
[2017-03-02] MEDS ORDERED: SODIUM CHLORIDE 0.9% 1,000 ML IV STA (13:27)
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
[2017-03-02 14:48] LABS: ALT 62 U/L (21-72); AST 162 U/L (17-59); Alkaline Phosphatase 83 U/L (38-126); Amylase 96 U/L (30-110); Anion Gap 15 mmol/L; Blood Urea Nitrogen 9 mg/dL (9-20); Calcium 8.6 mg/dL (8.4-10.2); Carbon Dioxide 27 mmol/L (22-30); Chloride 105 mmol/L (98-107); Glucose 70 mg/dL (74-99); Non-African American GFR(MDRD) >60 (>60 ml/min/1.73 sqM); Potassium 3.2 mmol/L (3.5-5.1); Sodium 147 mmol/L (137-145); Total Bilirubin 0.5 mg/dL (0.2-1.3)
[2017-03-02 14:59] LABS: Alcohol 393 mg/dL
--- NOTE | 2017-03-02 15:05 | CT ---
EXAMINATION TYPE: CT facial bones wo con DATE OF EXAM: 03/02/2017 COMPARISON: NONE HISTORY: Patient poor historian. Patient probable ETOH. Patient has multiple right side facial cont usion. CT DLP: 568.[address] of the facial bones was performed in the axial and coronal planes. Bone and soft tissu e window settings are submitted. Right-sided infraorbital soft tissue swelling. Nasal bone irregularity may reflect acute nasal bone fracture. Correlate clinically. Nasal spine is i ntact. Remaining osseous structures of the facial bones are intact. No evidence of blowout fracture. The globes are intact. Paranasal sinuses are well-aerated. IMPRESSION: 1. Correlate for nasal bone fracture.
--- NOTE | 2017-03-02 15:06 | CT ---
EXAMINATION TYPE: CT brain wo con DATE OF EXAM: 03/02/2017 COMPARISON: 12/09/2016 HISTORY: Patient poor historian. Patient probable ETOH. Patient has multiple right side facial cont usion. CT DLP: 848.[address] of the brain was performed. The ventricles, basal cisterns and sulci overlying the cerebral convexities demonstrate a normal appe arance. There is no evidence for intracranial hemorrhage or sulcal effacement. No mass effects are seen. Osseous calvarium is intact. If symptoms persist consider MRI as clinically warranted. IMPRESSION: 1. No acute intracranial process is seen at this time.
[2017-03-02] MEDS ORDERED: THIAMINE 100 MG/ML 2 ML VIAL IM STA (15:19)
[2017-03-02] MEDS ORDERED: LORazepam 2 MG/ML SYRINGE IV PRN ×2 (15:19)
[2017-03-02] MEDS ORDERED: POTASSIUM CHLORIDE ER 20 MEQ TAB.ER PO STA (15:19)
[2017-03-02] MEDS ORDERED: NALOXONE 0.4 MG/ML 1 ML VIAL IV PRN (15:20)
[2017-03-02] MEDS ORDERED: ONDANSETRON 4 MG/2 ML VIAL IVP PRN (15:20)
[2017-03-02] MEDS ORDERED: ACETAMINOPHEN TAB 325 MG TAB PO PRN (15:20)
[2017-03-02] MEDS ORDERED: chlordiazePOXIDE 25 MG CAP PO SCH (15:30)
[2017-03-02 15:37] LABS: Aty Lym Flag Slight; CH 35.8; HCT 41.8 % (39.0-53.0); HDW 2.61; MCH 36.5 pg (25.0-35.0); MCHC 33.5 g/dL (31.0-37.0); MCV 108.9 fL (80.0-100.0); Macrocytosis Marked; RBC 3.84 m/uL (4.30-5.90); RDW 15.2 % (11.5-15.5); WBC 2.9 k/uL (3.8-10.6); WBC (Perox) 2.85
[2017-03-02 16:05] LABS: Add Differential Manual Differential
[2017-03-02 16:06] LABS: Nucleated Red Blood Cells 0 /100 WBC (0-0); Polychromasia Present; Total Cells Counted 100
[2017-03-02] MEDS: LORazepam 2 MG/ML SYRINGE IV PRN ×2 (17:09→23:11)
[2017-03-02] MEDS: THIAMINE 100 MG TAB PO SCH (19:05)
[2017-03-02] MEDS ORDERED: TEMAZEPAM 15 MG CAP PO PRN (20:43)
[2017-03-02] MEDS: HYDROmorphone 1 MG/ML 1 ML SYRINGE IVP PRN (22:27)
[2017-03-03] MEDS: LORazepam 2 MG/ML SYRINGE IV PRN ×14 (00:27→23:33)
[2017-03-03 01:01] LABS: Appearance,Urine Clear (Clear); Bilirubin,Urine Negative (Negative); Glucose,Urine (UA) Negative (Negative); Ketones,Urine Negative (Negative); Leukocyte Esterase,Urine Negative (Negative); Mucus,Urine Rare /hpf; Nitrite,Urine Negative (Negative); Particle Count 1535; Protein,Urine 1+ (Negative); RBC,Urine 1 /hpf (0-5); Specific Gravity,Urine 1.022 (1.001-1.035); UA Billing (MACRO vs. MICRO) MICRO; WBC,Urine 1 /hpf (0-5)
[2017-03-03 07:00] LABS: Basophils % (A) 1 %; CH 36.5; CHCM 33.1; Eosinophils % (A) 2 %; HDW 2.53; HGB 12.4 gm/dL (13.0-17.5); Luc # (Auto) 0.08; Luc % (Auto) 3; Lymphocytes # (A) 0.9 k/uL (1.0-4.8); Lymphocytes % (A) 35 %; MCHC 32.6 g/dL (31.0-37.0); MCV 110.4 fL (80.0-100.0); Macrocytosis Marked; Mean Platelet Volume 7.6; Monocytes # (A) 0.3 k/uL (0-1.0); Monocytes % (A) 10 %; Neutrophils # (A) 1.3 k/uL (1.3-7.7); Neutrophils % (A) 50 %; RBC 3.45 m/uL (4.30-5.90); RDW 15.5 % (11.5-15.5); WBC 2.7 k/uL (3.8-10.6); WBC (Perox) 2.65
[2017-03-03] MEDS: ENOXAPARIN 40 MG/0.4 ML SYRINGE SQ SCH (07:20)
[2017-03-03] MEDS: FAMOTIDINE 20 MG TAB PO SCH (07:20)
[2017-03-03] MEDS: HYDROmorphone 1 MG/ML 1 ML SYRINGE IVP PRN ×3 (07:30→18:26)
[2017-03-03 07:35] LABS: ALT 59 U/L (21-72); AST 179 U/L (17-59); Alkaline Phosphatase 67 U/L (38-126); Anion Gap 6 mmol/L; Blood Urea Nitrogen 11 mg/dL (9-20); Calcium 8.2 mg/dL (8.4-10.2); Carbon Dioxide 28 mmol/L (22-30); Chloride 105 mmol/L (98-107); Glucose 95 mg/dL (74-99); Magnesium 1.2 mg/dL (1.6-2.3); Non-African American GFR(MDRD) >60 (>60 ml/min/1.73 sqM); Potassium 3.9 mmol/L (3.5-5.1); Sodium 139 mmol/L (137-145); Total Bilirubin 1.1 mg/dL (0.2-1.3); Total Protein 5.9 g/dL (6.3-8.2)
[2017-03-03] MEDS ORDERED: PANTOPRAZOLE 40 MG/10 ML VIAL IV SCH (09:00)
[2017-03-03] MEDS: MULTIVITAMINS, THERA 1 EACH TAB PO SCH (11:02)
[2017-03-03] MEDS: THIAMINE 100 MG TAB PO SCH ×2 (11:02→17:16)
[2017-03-03] MEDS: FOLIC ACID 1 MG TAB PO SCH (11:02)
--- NOTE | 2017-03-03 11:57 | HP ---
HISTORY AND PHYSICAL DATE OF SERVICE: 03/02/2017. CHIEF COMPLAINTS: Alcohol intoxication. HISTORY OF PRESENT ILLNESS: This 47-year-old gentleman with a past history of significant prolonged alcohol dependence and history of DVT, pneumonia, seizure disorder, anxiety and depression being followed by Dr. Barone in the outpatient is admitted to [facility] with complaints of alcohol intoxication. The patient was drinking about two fifths of alcohol daily. There is no history of any fever, rigors. No history of headache, loss of consciousness, seizures. The alcohol level on admission was 393. There is no history of fever, rigors or chills. The patient has gone to rehab for 15 times according to him. PAST MEDICAL HISTORY: History of alcoholism, DVT, pneumonia, seizure disorder. MEDICATIONS: Medications prior to admission: 1. Librium 25 mg p.o. 2. Vitamin B 100 mg daily. 3. Motrin 200 mg daily. 4. Pepcid 20 mg daily. ALLERGIES: VICODIN. FAMILY HISTORY: History of multiple myeloma and cancer. SOCIAL HISTORY: History of alcohol, history of smoker. REVIEW OF SYSTEMS: ENT: No diminished hearing or vision. CARDIOVASCULAR: No angina. RESPIRATORY: As mentioned earlier. GI: No nausea. : No dysuria. NERVOUS SYSTEM: No numbness or weakness. ALLERGY/IMMUNOLOGY: No asthma or hayfever. MUSCULOSKELETAL: As mentioned earlier. HEMATOLOGY/ONCOLOGY: No history of anemia. ENDOCRINE: No history of diabetes or hypothyroidism. CONSTITUTIONAL: As mentioned earlier. DERMATOLOGY: Negative. RHEUMATOLOGY: Negative. PSYCHIATRY: As mentioned earlier. PHYSICAL EXAMINATION: Patient is alert and oriented x3. Pulse 76, blood pressure 100/56, respirations 16, temperature 98.4, pulse ox 98% on room air. HEENT: Conjunctivae normal. NECK: No jugular venous distention. CARDIOVASCULAR: S1, S2 muffled. RESPIRATORY: Breath sounds diminished at the bases. A few rhonchi, no crackles. ABDOMEN: Soft, nontender, no mass palpable. LEGS: No edema, no swelling. NERVOUS SYSTEM: Higher function as mentioned. Moves all four limbs. No focal motor sensory deficits. LYMPHATICS: No lymphadenopathy in the neck, axillae or groin. SKIN: No rash, ulcer or bleeding. LABS: WBC 2.9, hemoglobin 14, sodium 140, potassium 3.2. ASSESSMENT: 1. Acute alcohol intoxication. 2. History of alcohol-withdrawal seizures. 3. Hyponatremia. 4. Hypokalemia. 5. Leukopenia. 6. History of DVT. 7. History of seizure disorder. 8. History of pneumonia. 9. History of C difficile. 10.History of anxiety, depression and panic disorder. RECOMMENDATIONS AND DISCUSSION: In this 47-year-old gentleman who presented with multiple complex medical issues, will monitor the patient closely. Continue the current management and symptomatic treatment. Otherwise at this time, I recommend continue with CIWA protocol. Supplement vitamins. DVT prophylaxis. Recommended symptomatic treatment. Recommended outpatient followup and possible rehab. Social work consult and monitor. Otherwise guarded prognosis because of multiple complex medical issues. Further recommendations to follow. Symptomatic treatment will also be provided. Proton pump inhibitors. Further recommendations to follow. Repeat labs have been ordered. The patient is trying to shore up some family support as well as rehab is concerned and also recommend the patient follow up with Dr. Lizabeth Burgess closely after discharge. The patient understands and agrees. MMKEOL / IJN: [id number] /
[2017-03-03] MEDS: MAGNESIUM OXIDE 400 MG TAB PO SCH ×3 (12:02→21:50)
[2017-03-03] MEDS: MAGNESIUM SULFATE-D5W PMX 1 GM in DEXTROSE/WATER 1 100ML.BAG IVPB SCH ×2 (12:02→13:00)
[2017-03-03] MEDS ORDERED: HALOPERIDOL LACTATE 5 MG/ML 1 ML VIAL IM PRN (15:25)
--- NOTE | 2017-03-03 18:32 | PN ---
PROGRESS NOTE DATE OF SERVICE: 03/03/2017 This is a 47-year-old gentleman who was admitted with alcoholic intoxication also had DTs. Patient is confused at this time. No chest pain or palpitations. No fever. PHYSICAL EXAMINATION: On exam, alert and oriented x2. Pulse is 78, blood pressure 115/78, respiration 18, temperature 97 degrees, pulse ox 97% on room air. HEENT: Conjunctivae normal. NECK: No jugular venous distention CARDIOVASCULAR: S1 and S2 muffled. RESPIRATORY: Breath sounds diminished at the bases. Scattered rhonchi and crackles. Abdomen is soft, nontender. LEGS: No edema. NERVOUS SYSTEM: No focal deficits. LABS: WBC 2.7, hemoglobin 12.4, otherwise other labs are noted. Magnesium is 1.2. ASSESSMENT: 1. Acute alcohol intoxication. 2. Acute alcohol withdrawal and acute delirium tremens. 3. Hypernatremia. 4. Hypokalemia. 5. Leukopenia. 6. History of deep vein thrombosis. 7. History of seizure disorder. 8. History of pneumonia. 9. History of Clostridium difficile. 10.History of anxiety depression and panic disorder. RECOMMENDATIONS AND DISCUSSION: Recommend to continue current medications. Continue with monitoring. Continue with the symptomatic treatment. Continue with Ativan and CIWA protocol. Also recommend Haldol also in case the patient is agitated or psychotic. Otherwise continue rest of the medications. Alcohol cessation is recommended. Guarded prognosis. Further recommendations to follow. MMKEOL / IJN: [id number] / MTDD
[2017-03-04] MEDS: LORazepam 2 MG/ML SYRINGE IV PRN ×11 (02:39→21:56)
[2017-03-04] MEDS: HYDROmorphone 1 MG/ML 1 ML SYRINGE IVP PRN ×3 (06:57→17:15)
[2017-03-04 07:09] LABS: Basophils % (A) 1 %; CHCM 31.5; Eosinophils # (A) 0.1 k/uL (0-0.7); Eosinophils % (A) 2 %; HCT 38.8 % (39.0-53.0); HDW 2.63; HGB 12.5 gm/dL (13.0-17.5); Hypochromasia Slight; Luc # (Auto) 0.04; Luc % (Auto) 1; Lymphocytes # (A) 0.8 k/uL (1.0-4.8); Lymphocytes % (A) 24 %; MCH 35.9 pg (25.0-35.0); MCHC 32.2 g/dL (31.0-37.0); MCV 111.3 fL (80.0-100.0); Macrocytosis Marked; Mean Platelet Volume 7.6; Monocytes # (A) 0.3 k/uL (0-1.0); Monocytes % (A) 8 %; Neutrophils # (A) 2.1 k/uL (1.3-7.7); Neutrophils % (A) 64 %; RBC 3.49 m/uL (4.30-5.90); RDW 14.4 % (11.5-15.5); WBC 3.3 k/uL (3.8-10.6); WBC (Perox) 3.22
[2017-03-04 07:18] LABS: ALT 50 U/L (21-72); AST 98 U/L (17-59); Alkaline Phosphatase 71 U/L (38-126); Anion Gap 5 mmol/L; Blood Urea Nitrogen 6 mg/dL (9-20); Calcium 8.5 mg/dL (8.4-10.2); Carbon Dioxide 24 mmol/L (22-30); Chloride 107 mmol/L (98-107); Glucose 99 mg/dL (74-99); Magnesium 1.5 mg/dL (1.6-2.3); Non-African American GFR(MDRD) >60 (>60 ml/min/1.73 sqM); Sodium 136 mmol/L (137-145); Total Bilirubin 1.1 mg/dL (0.2-1.3); Total Protein 5.7 g/dL (6.3-8.2)
[2017-03-04 08:22] LABS: Manual Review Performed
[2017-03-04] MEDS: ENOXAPARIN 40 MG/0.4 ML SYRINGE SQ SCH (08:26)
[2017-03-04] MEDS: THIAMINE 100 MG TAB PO SCH ×2 (08:27→16:17)
[2017-03-04] MEDS: FAMOTIDINE 20 MG TAB PO SCH (08:27)
[2017-03-04] MEDS: MULTIVITAMINS, THERA 1 EACH TAB PO SCH (08:27)
[2017-03-04] MEDS: PANTOPRAZOLE 40 MG TABLET PO SCH (08:27)
[2017-03-04] MEDS: MAGNESIUM OXIDE 400 MG TAB PO SCH ×3 (08:27→21:56)
[2017-03-04] MEDS: FOLIC ACID 1 MG TAB PO SCH (08:27)
[2017-03-04] MEDS: MAGNESIUM SULFATE-D5W PMX 1 GM in DEXTROSE/WATER 1 100ML.BAG IVPB SCH ×2 (13:00→14:43)
--- NOTE | 2017-03-04 21:40 | PN ---
PROGRESS NOTE DATE OF SERVICE: 03/04/2017. INTERIM HISTORY: This 47-year-old gentleman who was admitted with acute alcoholic intoxication also had delirium tremens also. Currently no chest pain. No palpitations. No fever. The patient is minimally confused. EXAM: Pulse 65, blood pressure 115/68, respiration 18, temperature 98.4, pulse ox 97% on room air. HEENT: Conjunctivae normal. Neck: No jugular venous distention. CARDIOVASCULAR: S1, S2. RESPIRATORY: Breath sounds diminished in the bases. No rhonchi. No crackles. ABDOMEN: Soft, nontender. Legs: No edema. No swelling. Nervous system: Higher functions as mentioned earlier. Diffuse weakness and diffuse tremors also present. Skin no ulcer, rash or bleeding. LABS: WBC 3.3, hemoglobin 12.5, sodium 136, magnesium 1.5. ASSESSMENT: 1. Acute alcohol intoxication. 2. Acute alcohol withdrawal as well as acute delirium tremens. 3. Hypernatremia. 4. Hypokalemia. 5. Leukopenia. 6. History of deep vein thrombosis. 7. History of seizure disorder. 8. History of pneumonia. 9. History of C difficile colitis. 10.Anxiety, depression. 11.Panic disorder. RECOMMENDATIONS AND DISCUSSION: Recommend to continue current management, continue with medications, symptomatic treatment. Otherwise supplement magnesium, continue the rest of the medications. Add Librium. Continue with the rest of the medications. Guarded prognosis. Further recommendations to follow. MMODL / IJN: [id number] /
[2017-03-04 23:13] VITALS: TEMP 97.6
[2017-03-05] MEDS: LORazepam 2 MG/ML SYRINGE IV PRN ×3 (00:33→06:55)
[2017-03-05] MEDS: PANTOPRAZOLE 40 MG TABLET PO SCH (07:36)
[2017-03-05 07:42] LABS: ALT 48 U/L (21-72); AST 72 U/L (17-59); Alkaline Phosphatase 59 U/L (38-126); Anion Gap 4 mmol/L; Blood Urea Nitrogen 5 mg/dL (9-20); Calcium 8.4 mg/dL (8.4-10.2); Carbon Dioxide 24 mmol/L (22-30); Chloride 109 mmol/L (98-107); Glucose 101 mg/dL (74-99); Magnesium 1.7 mg/dL (1.6-2.3); Non-African American GFR(MDRD) >60 (>60 ml/min/1.73 sqM); Potassium 3.8 mmol/L (3.5-5.1); Sodium 137 mmol/L (137-145); Total Bilirubin 0.7 mg/dL (0.2-1.3); Total Protein 5.9 g/dL (6.3-8.2)
[2017-03-05 07:49] LABS: Basophils % (A) 1 %; CH 34.9; CHCM 31.9; Eosinophils # (A) 0.1 k/uL (0-0.7); Eosinophils % (A) 2 %; HCT 38.9 % (39.0-53.0); HDW 2.59; Luc # (Auto) 0.13; Luc % (Auto) 4; Lymphocytes # (A) 0.7 k/uL (1.0-4.8); Lymphocytes % (A) 22 %; MCH 36.6 pg (25.0-35.0); MCHC 33.4 g/dL (31.0-37.0); MCV 109.4 fL (80.0-100.0); Macrocytosis Marked; Mean Platelet Volume 8.8; Monocytes # (A) 0.3 k/uL (0-1.0); Monocytes % (A) 9 %; Neutrophils # (A) 2.1 k/uL (1.3-7.7); Neutrophils % (A) 63 %; RBC 3.55 m/uL (4.30-5.90); RDW 14.7 % (11.5-15.5); WBC 3.3 k/uL (3.8-10.6); WBC (Perox) 3.39
[2017-03-05 07:52] VITALS: BP 113/76; PULSE 58; RESP 12
[2017-03-05 07:54] LABS: Manual Review Performed
[2017-03-05] MEDS: ENOXAPARIN 40 MG/0.4 ML SYRINGE SQ SCH (08:58)
[2017-03-05] MEDS: FAMOTIDINE 20 MG TAB PO SCH (08:59)
[2017-03-05] MEDS: MAGNESIUM OXIDE 400 MG TAB PO SCH (08:59)
[2017-03-05] MEDS: MULTIVITAMINS, THERA 1 EACH TAB PO SCH (12:07)
[2017-03-05] MEDS: FOLIC ACID 1 MG TAB PO SCH (12:07)
[2017-03-05] MEDS: THIAMINE 100 MG TAB PO SCH (12:07)
--- NOTE | 2017-03-05 16:56 | P.DS ---
Providers Date of admission: 03/02/17 15:20 Attending physician: Adalid Moya Primary care physician: [facility] Course: This 47-year-old gentleman was admitted with acute alcohol intoxication. Patient also had a features of acute alcohol withdrawal as well as acute delirium tremens. Treated symptomatically. Improved significantly. The patient be discharged in a stable condition with guarded prognosis with advice to attend alcohol rehab and AA. Patient understands and agrees. On exam vitals stable. Cardio S1-S2 normal. Abdomen soft nontender. No system no focal deficit. Final diagnosis 1. Acute alcohol intoxication. 2. Acute alcohol withdrawal as well as acute delirium tremens. 3. Hyponatremia. 4. Hypokalemia. 5. Leukopenia. 6. History of DVT. 7. History of seizure disorder. 8. History of pneumonia. 9. History cc colitis. #10. Anxiety depression. 11. Panic Disorder. Patient Condition at Discharge: Fair Plan - Discharge Summary New Discharge Prescriptions: New chlordiazePOXIDE HCl [Librium] 20 mg PO TID #30 cap Folic Acid 1 mg PO DAILY@1200 #30 tab LORazepam [Ativan] 0.5 mg PO TID #20 tab Magnesium Oxide [Mag-Ox] 400 mg PO TID #30 tab Pantoprazole [Protonix] 40 mg PO AC-BRKFST #30 tab Continue Multivitamins, Thera [Multivitamin (formulary)] 1 tab PO DAILY Thiamine [Vitamin B-1] 100 mg PO DAILY #30 tablet Famotidine [Pepcid] 20 mg PO DAILY Discontinued chlordiazePOXIDE HCl [Librium] 25 mg PO DIRECTED 6 Days Discharge Medication List Multivitamins, Thera [Multivitamin (formulary)] 1 tab PO DAILY 12/09/16 [History ] Thiamine [Vitamin B-1] 100 mg PO DAILY #30 tablet 02/13/17 [Rx] Famotidine [Pepcid] 20 mg PO DAILY 02/25/17 [History] Folic Acid 1 mg PO DAILY@1200 #30 tab 03/05/17 [Rx] LORazepam [Ativan] 0.5 mg PO TID #20 tab 03/05/17 [Rx] Magnesium Oxide [Mag-Ox] 400 mg PO TID #30 tab 03/05/17 [Rx] Pantoprazole [Protonix] 40 mg PO AC-BRKFST #30 tab 03/05/17 [Rx] chlordiazePOXIDE HCl [Librium] 20 mg PO TID #30 cap 03/05/17 [Rx] Follow up Appointment(s)/Referral(s): Lizabeth Burgess MD [Primary Care Provider] - 3 Days (patient to call Dr. Burgess to schedule follow up appointment. The office is closed at time of discharge.) Ambulatory/Diagnostic Orders: Complete Blood Count w/diff [LAB.AMB] Time Frame: 3 Days, Location: Determined By Patient Patient Instructions/Handouts: Chlordiazepoxide (By mouth), Lorazepam (By mouth ), Folic Acid (By mouth), Pantoprazole (By mouth), Magnesium Oxide (By mouth), Nasal Fracture (DC), Alcohol Intoxication (DC) Activity/Diet/Wound Care/Special Instructions: DIet: cardiac Activity: limited TIll FU No etoh Discharge Disposition: HOME SELF-CARE
== END 2017-03-05 12:25 | disposition home or self-care (01) | DRG 895 ==
LOC: EC 12:53 → 5MS5E 15:20
PROVIDERS: ADMIT Hospitalist; ATTEND Hospitalist
PROC: HZ39ZZZ Individual Counseling for Substance Abuse Treatment, Continuing Care (ICD-10-PCS; principal; 2017-03-02)
DX: F10.229 Alcohol dependence with intoxication, unspecified (principal); F10.231 Alcohol dependence with withdrawal delirium; E87.0 Hyperosmolality and hypernatremia; S02.2XXA Fracture of nasal bones, initial encounter for closed fracture; S00.11XA Contusion of right eyelid and periocular area, initial encounter; E87.1 Hypo-osmolality and hyponatremia; F32.9 Major depressive disorder, single episode, unspecified; G40.909 Epilepsy, unspecified, not intractable, without status epilepticus; Y90.8 Blood alcohol level of 240 mg/100 ml or more; F17.200 Nicotine dependence, unspecified, uncomplicated; E87.6 Hypokalemia; F41.0 Panic disorder [episodic paroxysmal anxiety]; Z86.19 Personal history of other infectious and parasitic diseases; Z80.3 Family history of malignant neoplasm of breast; Z80.7 Family history of other malignant neoplasms of lymphoid, hematopoietic and related tissues; Z79.1 Long term (current) use of non-steroidal anti-inflammatories (NSAID); Z87.01 Personal history of pneumonia (recurrent); Z79.899 Other long term (current) drug therapy; Z86.718 Personal history of other venous thrombosis and embolism; Z88.6 Allergy status to analgesic agent; Y08.89XA Assault by other specified means, initial encounter; Z71.41 Alcohol abuse counseling and surveillance of alcoholic
CPT/HCPCS: 36415; 70450; 70486; 80053; 80320; 81001; 82150; 83690; 83735; 85025

== ENCOUNTER 2017-03-27 16:51 | Emergency (ER) | payer OTHER ==
[2017-03-27] MEDS ORDERED: SODIUM CHLORIDE 0.9% 1,000 ML IV ONE (16:55)
[2017-03-27] MEDS ORDERED: LORazepam 2 MG/ML INJ IV STA ×2 (16:55→19:43)
--- NOTE | 2017-03-27 17:00 | ED ---
General Adult HPI - General Stated complaint: Alcohol Time Seen by Provider: 03/27/17 16:51 Source: RN notes reviewed - History of Present Illness Initial comments: This is a 47 her old male who has a past medical history significant for alcoholism. Patient presents today because he states that yesterday try to stop drinking cold turkey. Patient states the middle the night he was going through withdrawals with the shakes so he drank 4 beers. Patient states he stopped at 8:30 this morning. Again the shakes started again so he had a half a beer and that did not help at all. Patient states she called EMS to come in and get some help. Patient states she supposed go to [place] later in the week but they have no openings currently. Patient denies any vomiting but is mildly nauseous. Patient denies any chest pain or palpitations or difficulty breathing. Patient denies any headache patient denies any numbness or weakness. Patient denies any recent injuries or falls. Patient states she normally drinks a fifth of vodka every day. Patient denies any drug use. - Related Data Home Medications Medication Instructions Recorded Confirmed Multivitamins, Thera [Multivitamin 1 tab PO DAILY 12/09/16 03/27/17 (formulary)] Famotidine [Pepcid] 20 mg PO DAILY 02/25/17 03/27/17 Previous Rx's Medication Instructions Recorded Thiamine [Vitamin B-1] 100 mg PO DAILY #30 tablet 02/13/17 Folic Acid 1 mg PO DAILY@1200 #30 tab 03/05/17 Pantoprazole [Protonix] 40 mg PO AC-BRKFST #30 tab 03/05/17 chlordiazePOXIDE HCL [Librium] 5 mg PO QID PRN #20 capsule 03/19/17 Allergies Allergy/AdvReac Type Severity Reaction Status Date / Time hydrocodone bitartrate Allergy Itching Verified 03/27/17 17:24 [From Vicodin] Review of Systems ROS Statement: Those systems with pertinent positive or pertinent negative responses have been documented in the HPI. ROS Other: All systems not noted in ROS Statement are negative. Past Medical History Past Medical History: Chest Pain / Angina, Deep Vein Thrombosis (DVT), Pneumonia , Seizure Disorder, Skin Disorder Additional Past Medical History / Comment(s): CHRONIC ALCOHOLIC SEIZURES R/T WITHDRAWLS,FALLS, NECROTIZING FASCIITIS RT HAND WAS HOSPITALIZED 53 DAYS ( 2010 )- WAS ON BEDREST -DEVELOPED DVT'S , C-DIFF APPROX 4 YEARS AGO. BROKEN NOSE(HAD SX), PANCREATITIS. History of Any Multi-Drug Resistant Organisms: None Reported Date of last positivie culture/infection: 2010 MDRO Source:: bowel Past Surgical History: Orthopedic Surgery Additional Past Surgical History / Comment(s): SKIN GRAFT DONE ON RIGHT HAND/ SKIN WAS TAKEN FROM HIS RT THIGH, PT STATED" HAS A STENT OR FILTER TO STOP BLOOD CLOTS FROM GOING TO HIS HEART: SX TO REPAIR BROKEN NOSE. DISLOCATED RT SHOULDER REPAIRED. Past Anesthesia/Blood Transfusion Reactions: No Reported Reaction Additional Past Anesthesia/Blood Transfusion Reaction / Comment(s): CLAUSTERPHOBIA Smoking Status: Current every day smoker - Past Family History Father Family Medical History: Cancer Additional Family Medical History / Comment(s): MULTIPLE MYELOMA. 2006 Mother Family Medical History: Cancer Additional Family Medical History / Comment(s): BREAST CANCER, STILL LIVING General Exam - General Exam Comments Initial Comments: GENERAL: Patient is well-developed and well-nourished. Patient is nontoxic and well- hydrated and is in mild distress. ENT: Neck is soft and supple. No significant lymphadenopathy is noted. Oropharynx is clear. Moist mucous membranes. Neck has full range of motion without eliciting any pain. EYES: The sclera were anicteric and conjunctiva were pink and moist. Extraocular movements were intact and pupils were equal round and reactive to light. Eyelids were unremarkable. PULMONARY: Unlabored respirations. Good breath sounds bilaterally. No audible rales rhonchi or wheezing was noted. CARDIOVASCULAR: There is a regular rate and rhythm without any murmurs gallops or rubs. ABDOMEN: Soft and nontender with normal bowel sounds. No palpable organomegaly was noted. There is no palpable pulsatile mass. SKIN: Skin is clear with no lesions or rashes and otherwise unremarkable. NEUROLOGIC: Patient is alert and oriented x3. Cranial nerves II through XII are grossly intact. Motor and sensory are also intact. Normal speech, volume and content. Symmetrical smile. MUSCULOSKELETAL: Normal extremities with adequate strength and full range of motion. No lower extremity swelling or edema. No calf tenderness. LYMPHATICS: No significant lymphadenopathy is noted PSYCHIATRIC: Patient denies suicidal homicidal ideations. Patient is mildly anxious Course Vital Signs 03/27/17 17:06 Temperature 98.1 F Pulse Rate 107 H Respiratory 18 Rate Blood Pressure 117/76 O2 Sat by Pulse 97 Oximetry Medical Decision Making - Lab Data Result diagrams: 03/27/17 19:00 03/27/17 17:00 Lab Results 03/27/17 03/27/17 Range/Units 17:00 19:00 WBC 4.7 (3.8-10.6) k/uL RBC 4.74 (4.30-5.90) m/uL Hgb 16.7 D (13.0-17.5) gm/dL Hct 50.0 (39.0-53.0) % MCV 105.5 H D (80.0-100.0) fL MCH 35.3 H (25.0-35.0) pg MCHC 33.4 (31.0-37.0) g/dL RDW 16.0 H (11.5-15.5) % Plt Count 207 (150-450) k/uL Neutrophils % 56 % Lymphocytes % 26 % Monocytes % 13 % Eosinophils % 1 % Basophils % 1 % Neutrophils # 2.6 (1.3-7.7) k/uL Lymphocytes # 1.2 (1.0-4.8) k/uL Monocytes # 0.6 (0-1.0) k/uL Eosinophils # 0.0 (0-0.7) k/uL Basophils # 0.0 (0-0.2) k/uL Anisocytosis Slight Macrocytosis Moderate Sodium 131 L (137-145) mmol/L Potassium 3.3 L (3.5-5.1) mmol/L Chloride 74 L* (98-107) mmol/L Carbon Dioxide 30 (22-30) mmol/L Anion Gap 27 mmol/L BUN 16 (9-20) mg/dL Creatinine 1.62 H (0.66-1.25) mg/dL Est GFR (MDRD) Af Amer 56 (>60 ml/min/1.73 sqM) Est GFR (MDRD) Non-Af 46 (>60 ml/min/1.73 sqM) Glucose 133 H (74-99) mg/dL Calcium 9.5 (8.4-10.2) mg/dL Magnesium 1.6 (1.6-2.3) mg/dL Total Bilirubin 1.5 H (0.2-1.3) mg/dL AST 74 H (17-59) U/L ALT 59 (21-72) U/L Alkaline Phosphatase 93 (38-126) U/L Total Protein 9.2 H (6.3-8.2) g/dL Albumin 5.3 H (3.5-5.0) g/dL Serum Alcohol 134 mg/dL Disposition Clinical Impression: Alcohol withdrawal Disposition: HOME SELF-CARE Condition: Good Instructions: Alcohol Withdrawal (ED) Additional Instructions: Patient should follow-up with the rehabilitation Center Referrals: Lizabeth Burgess MD [Primary Care Provider] - 1-2 days Time of Disposition: 19:50
[2017-03-27 17:25] LABS: Calcium 9.5 mg/dL (8.4-10.2); Magnesium 1.6 mg/dL (1.6-2.3); Potassium 3.3 mmol/L (3.5-5.1); Total Bilirubin 1.5 mg/dL (0.2-1.3); Total Protein 9.2 g/dL (6.3-8.2)
[2017-03-27] MEDS ORDERED: MAG HYDROX/AL HYDROX/SIMETH 30 ML, HYOSCYAMINE ELIXIR 10 ML, CIMETIDINE HCL 300 MG, LID... PO STA ×4 (18:07)
[2017-03-27] MEDS ORDERED: PANTOPRAZOLE 40 MG/10 ML VIAL IVP STA (18:07)
[2017-03-27] MEDS ORDERED: ONDANSETRON 4 MG/2 ML VIAL IVP STA (18:14)
[2017-03-27 19:18] LABS: Anisocytosis Slight; Basophils % (A) 1 %; CH 35.4; CHCM 33.7; Eosinophils % (A) 1 %; HDW 2.31; Luc # (Auto) 0.19; Luc % (Auto) 4; Lymphocytes # (A) 1.2 k/uL (1.0-4.8); Lymphocytes % (A) 26 %; MCH 35.3 pg (25.0-35.0); MCHC 33.4 g/dL (31.0-37.0); Macrocytosis Moderate; Mean Platelet Volume 7.1; Monocytes # (A) 0.6 k/uL (0-1.0); Monocytes % (A) 13 %; Neutrophils # (A) 2.6 k/uL (1.3-7.7); Neutrophils % (A) 56 %; RBC 4.74 m/uL (4.30-5.90); WBC 4.7 k/uL (3.8-10.6); WBC (Perox) 4.64
[2017-03-27 19:23] LABS: HGB 16.7 gm/dL (13.0-17.5); MCV 105.5 fL (80.0-100.0)
[2017-03-27 19:56] VITALS: BP 111/72; PULSE 78; RESP 16; TEMP 98
== END 2017-03-27 20:09 | disposition home or self-care (01) ==
LOC: EC 16:51
DX: F10.230 Alcohol dependence with withdrawal, uncomplicated (principal); F17.200 Nicotine dependence, unspecified, uncomplicated; Y90.6 Blood alcohol level of 120-199 mg/100 ml; Z86.718 Personal history of other venous thrombosis and embolism; Z79.899 Other long term (current) drug therapy; Z88.5 Allergy status to narcotic agent
CPT/HCPCS: 99284 ×2; 96374 ×2; 96375 ×3; 96376 ×2; 96361 ×2; 36415; 80053; 83735; 85025; 82075; 80306; 80320; J2060; J2405; C9113

== ENCOUNTER 2022-12-25 10:25 | Emergency (ER) | payer OTHER ==
[2022-12-25] MEDS ORDERED: SODIUM CHLORIDE 0.9% 1,000 ML IV STA (11:32)
[2022-12-25 11:58] LABS: Anisocytosis Slight; Basophils % (A) 0 %; Eosinophils % (A) 1 %; HCT 38.1 % (39.0-53.0); HGB 11.8 gm/dL (13.0-17.5); Hypochromasia Marked; Lymphocytes # (A) 0.5 k/uL (1.0-4.8); Lymphocytes % (A) 15 %; MCH 31.2 pg (25.0-35.0); MCHC 30.9 g/dL (31.0-37.0); MCV 101.1 fL (80.0-100.0); Macrocytosis Moderate; Mean Platelet Volume 7.8; Monocytes # (A) 0.8 k/uL (0-1.0); Monocytes % (A) 25 %; Neutrophils # (A) 1.8 k/uL (1.3-7.7); Neutrophils % (A) 56 %; Platelet Count 238 k/uL (150-450); RBC 3.77 m/uL (4.30-5.90); RDW 18.4 % (11.5-15.5); WBC 3.2 k/uL (3.8-10.6)
[2022-12-25 12:15] LABS: ALT 37 U/L (4-49); African American GFR (CKD) >90 (>60 ml/min/1.73 sqM); Albumin 4.4 g/dL (3.5-5.0); Anion Gap 9 mmol/L; Blood Urea Nitrogen 9 mg/dL (9-20); Calcium 9.3 mg/dL (8.4-10.2); Carbon Dioxide 23 mmol/L (22-30); Chloride 105 mmol/L (98-107); Glucose 93 mg/dL (74-99); Lipase 213 U/L (23-300); Non-African American GFR(CKD) >90 (>60 ml/min/1.73 sqM); Sodium 137 mmol/L (137-145); Total Bilirubin 0.8 mg/dL (0.2-1.3); Total Protein 8.5 g/dL (6.3-8.2)
[2022-12-25 12:22] LABS: AST 48 U/L (17-59); Alkaline Phosphatase 80 U/L (38-126); Potassium 5.1 mmol/L (3.5-5.1)
[2022-12-25 12:24] LABS: Amorphous Sediment,Urine Few /hpf; Appearance,Urine Turbid (Clear); Bilirubin,Urine Negative (Negative); Blood,Urine Negative (Negative); Color,Urine Yellow; Glucose,Urine (UA) Negative (Negative); Ketones,Urine Trace (Negative); Leukocyte Esterase,Urine Negative (Negative); Mucus,Urine Rare /hpf; Nitrite,Urine Negative (Negative); PH, Urine 7.5 (5.0-8.0); Protein,Urine Trace (Negative); RBC,Urine 1 /hpf (0-5); Specific Gravity,Urine 1.025 (1.001-1.035)
--- NOTE | 2022-12-25 12:49 | CT ---
EXAMINATION TYPE: CT abdomen pelvis w con DATE OF EXAM: 12/25/2022 COMPARISON: None HISTORY: RLQ pain CT DLP: 587.9 mGycm Automated exposure control for dose reduction was used. CONTRAST: CT scan of the abdomen pelvis is performed with IV Contrast, patient injected with 100 ml mL of Isovu e 300. FINDINGS- LUNG BASES- there is subsegmental basilar atelectasis. Centrilobular emphysematous changes. Heart si ze normal. LIVER/GB- tiny hypodensity involving the liver axial image 13 to small to characterize but likely b enign. There is gallbladder wall thickening. Mild extrahepatic biliary ductal dilation is seen. There are mild central intrahepatic biliary ductal dilation seen. PANCREAS- No gross abnormality is seen. SPLEEN- No gross abnormality is seen. ADRENALS- No gross abnormality is seen. KIDNEYS/BLADDER- no hydronephrosis nephrolithiasis or renal mass. BOWEL- bowel gas pattern nonspecific with no diagnostic evidence of obstruction. Appendix appears no rmal. Moderate retained stool burden. Diverticulosis but no diagnostic evidence of diverticulitis. LYMPH NODES- No greater than 1cm abdominal or pelvic lymph nodes are appreciated. OSSEOUS STRUCTURES- postsurgical change right hip with arthropathy left hip. Hypertrophic and degene rative changes of the spine. OTHER- atherosclerotic change aorta. Ectasia of the iliac arteries. No aneurysm of the aorta. IVC fi lter incidentally noted. IMPRESSION- 1. Appendix is normal. 2. There does appear to be thickening of the gallbladder wall with extrahepatic biliary ductal dilati on. Recommend correlation with right upper quadrant to assess for cholecystitis.
[2022-12-25 12:55] VITALS: TEMP 98.3
--- NOTE | 2022-12-25 13:46 | US ---
EXAMINATION TYPE: US gallbladder DATE OF EXAM: 12/25/2022 COMPARISON: NONE CLINICAL INDICATION: Male, 52 years old with history of abd pain; pain alcoholism. TECHNIQUE: Multiple sonographic images of the right upper quadrant are obtained. FINDINGS: EXAM MEASUREMENTS: Liver Length: 16.7 cm Gallbladder Wall: .3 cm CBD: 0.9 cm Right Kidney: 10.3 x 4.0 x 4.0 cm TRAINING COORDINATOR NOTES: Pancreas: Tail obscured by overlying bowel gas Liver: wnl Gallbladder: No stones seen. Some mild pericholecystic fluid may be present. Evidence for sonographic Angeles's sign: No CBD: Dilated Right Kidney: No hydronephrosis or masses seen IMPRESSION: 1. Mild hepatomegaly 2. Mild pericholecystic fluid may be present. Common bile duct is somewhat prominent for the patient age. Consider cholecystitis.
--- NOTE | 2022-12-25 14:11 | ED ---
Abdominal Pain HPI - General Chief Complaint: Abdominal Pain Stated Complaint: Abd Pain Time Seen by Provider: 12/25/22 10:30 Source: patient, EMS Mode of arrival: EMS Limitations: no limitations - History of Present Illness Initial Comments: 52-year-old male presents to the emergency room from [facility]. He has been at [facility] for alcohol abuse. Reports that he was on a benzo protocol however the recently discontinued it. He states that he feels like he is having withdrawal symptoms. He went to the nurse and reported his symptoms. She estimates he had any abdominal pain and he did have pain in the right lower quadrant which was elicited on physical exam. Because of this the nurse recommended that he come to the hospital for evaluation. Patient arrives and states that the pain is gone at this time. He thinks his symptoms were a ttributed to gas. He denies any nausea or vomiting. No fevers. No bloody stools. No diarrhea. No other alleviating, precipitating or modifying factors - Related Data Home Medications Medication Instructions Recorded Confirmed Multivitamins, Thera [Multivitamin 1 tab PO DAILY 12/09/16 03/27/17 (formulary)] Famotidine [Pepcid] 20 mg PO DAILY 02/25/17 03/27/17 Previous Rx's Medication Instructions Recorded Thiamine [Vitamin B-1] 100 mg PO DAILY #30 tablet 02/13/17 Folic Acid 1 mg PO DAILY@1200 #30 tab 03/05/17 Pantoprazole [Protonix] 40 mg PO AC-BRKFST #30 tab 03/05/17 chlordiazePOXIDE HCl [Librium] 5 mg PO QID PRN #20 capsule 03/19/17 Allergies Allergy/AdvReac Type Severity Reaction Status Date / Time hydrocodone bitartrate Allergy Itching Verified 12/25/22 10:40 [From Vicodin] Review of Systems ROS Statement: Those systems with pertinent positive or pertinent negative responses have been documented in the HPI. ROS Other: All systems not noted in ROS Statement are negative. 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 BROKEN NOSE(HAD SX), PANCREATITIS. History of Any Multi-Drug Resistant Organisms: None Reported Date of last positivie culture/infection: 2010 MDRO Source:: bowel Past Surgical History: Joint Replacement, Orthopedic Surgery Additional Past Surgical History / Comment(s): SKIN GRAFT DONE ON RIGHT HAND/SKIN WAS TAKEN FROM HIS RT THIGH, PT STATED" HAS A STENT OR FILTER TO STOP BLOOD CLOTS FROM GOING TO HIS HEART: SX TO REPAIR BROKEN NOSE. DISLOCATED RT SHOULDER REPAIRED. hip replacement 2022 Past Anesthesia/Blood Transfusion Reactions: No Reported Reaction Additional Past Anesthesia/Blood Transfusion Reaction / Comment(s): CLAUSTERPHOBIA Past Psychological History: Anxiety, Depression, Panic Disorder Smoking Status: Current every day smoker Past Alcohol Use History: Abuse, Heavy Past Drug Use History: Marijuana - Past Family History Father Family Medical History: Cancer Additional Family Medical History / Comment(s): MULTIPLE MYELOMA. 2006 Mother Family Medical History: Cancer Additional Family Medical History / Comment(s): BREAST CANCER, STILL LIVING General Exam Limitations: no limitations General appearance: alert, in no apparent distress Head exam: Present: atraumatic, normocephalic, normal inspection Eye exam: Present: normal appearance, PERRL, EOMI. Absent: scleral icterus, conjunctival injection, periorbital swelling ENT exam: Present: normal exam, mucous membranes moist Neck exam: Present: normal inspection. Absent: tenderness, meningismus, lymphadenopathy Respiratory exam: Present: normal lung sounds bilaterally. Absent: respiratory distress, wheezes, rales, rhonchi, stridor Cardiovascular Exam: Present: regular rate, normal rhythm, normal heart sounds. Absent: systolic murmur, diastolic murmur, rubs, gallop, clicks GI/Abdominal exam: Present: soft, normal bowel sounds. Absent: distended, tende rness, guarding, rebound, rigid Extremities exam: Present: normal inspection, full ROM, normal capillary refill. Absent: tenderness, pedal edema, joint swelling, calf tenderness Back exam: Present: normal inspection Neurological exam: Present: alert, oriented X3, CN II-XII intact Psychiatric exam: Present: normal affect, normal mood Skin exam: Present: warm, dry, intact, normal color. Absent: rash Course Vital Signs 12/25/22 12/25/22 12/25/22 10:27 11:30 12:53 Temperature 98.5 F 98.3 F Pulse Rate 74 67 56 L Respiratory 18 18 18 Rate Blood Pressure 135/93 141/94 154/100 O2 Sat by Pulse 99 100 99 Oximetry 12/25/22 14:32 Temperature Pulse Rate 74 Respiratory 16 Rate Blood Pressure 137/99 O2 Sat by Pulse 99 Oximetry Medical Decision Making - Medical Decision Making Was pt. sent in by a medical professional or institution (, [facility], HEARING IMPAIRED TEACHER, urgent care, hospital, or retirement...) When possible be specific @ -[facility] Did you speak to anyone other than the patient for history (EMS, parent, family, police, friend...)? What history was obtained from this source @ -EMS Did you review nursing and triage notes (agree or disagree)? Why? @ -I reviewed and agree with nursing and triage notes Were old charts reviewed (outside hosp., previous admission, EMS record, old EKG, old radiological studies, urgent care reports/EKG's, retirement records)? Report findings @ -No old charts were reviewed Differential Diagnosis (chest pain, altered mental status, abdominal pain women, abdominal pain men, vaginal bleeding, weakness, fever, dyspnea, syncope, headache, dizziness, GI bleed, back pain, seizure, CVA, palpatations, mental health, musculoskeletal)? @ -cholelithiasis, cholecystitis, appendicitis, colitis EKG interpreted by me (3pts min.). @ -Not done X-rays interpreted by me (1pt min.). @ -None done CT interpreted by me (1pt min.). @ -yes, possible cholecystitis U/S interpreted by me (1pt. min.). @ -yes, mild cholecystic fluid What testing was considered but not performed or refused? (CT, X-rays, U/S, labs)? Why? @ -None What meds were considered but not given or refused? Why? @ -None Did you discuss the management of the patient with other professionals (parth alcazar i.e. [facility], HEARING IMPAIRED TEACHER, lab, RT, psych nurse, social media marketer, business support liaison, teacher, chief medical officer, immigration case manager)? Give summary @ -Dr. Connell Was smoking cessation discussed for >3mins.? @ -No Was critical care preformed (if so, how long)? @ -No Were there social determinants of health that impacted care today? How? (Homelessness, low income, unemployed, alcoholism, drug addiction, trans portation, low edu. Level, literacy, decrease access to med. care, alf, rehab)? @ -Patient residing in rehab Was there de-escalation of care discussed even if they declined (Discuss DNR or withdrawal of care, Hospice)? DNR status @ -No What co-morbidities impacted this encounter? (DM, HTN, Smoking, COPD, CAD, Cancer, CVA, ARF, Chemo, Hep., AIDS, mental health diagnosis, sleep apnea, morbid obesity)? @ -None Was patient admitted / discharged? Hospital course, mention meds given and route, prescriptions, significant lab abnormalities, going to OR and other pertinent info. @ -Upon arrival patient was placed into room 3. There are history and physical exam was performed. Patient was agreeable to workup. IV is established and laboratory studies were conducted. A CT is performed which demonstrates possible pericholecystic fluid. I did follow this with a call bladder ultrasound. Patient continues to remain pain free. I called and spoke with Dr. Connell in regards to the patient's symptoms. As he is not tender, does not have any enzyme abdomen male days, he will be discharged back to [facility]. Informed him to monitor his symptoms. Should he have any new or worsening symptoms, he should return to the emergency room. Patient was highly agreeable to this plan and he was discharged in stable condition Undiagnosed new problem with uncertain prognosis? @ -No Drug Therapy requiring intensive monitoring for toxicity (Heparin, Nitro, Insulin, Cardizem)? @ -No Were any procedures done? @ -No Diagnosis/symptom? @ -acute abd pain Acute, or Chronic, or Acute on Chronic? @ -acute Uncomplicated (without systemic symptoms) or Complicated (systemic symptoms)? @ -complicated Side effects of treatment? @ -No Exacerbation, Progression, or Severe Exacerbation? @ -No Poses a threat to life or bodily function? How? (Chest pain, [place], CA, pneumonia, PE, COPD, DKA, ARF, appy, cholecystitis, CVA, Diverticulitis, Homicidal, Suicidal, threat to staff... and all critical care pts) @ -No - Lab Data Result diagrams: 12/25/22 11:45 07/03/23 11:45 Lab Results 12/25/22 12/25/22 12/25/22 Range/Units 11:45 11:45 11:45 WBC 3.2 L (3.8-10.6) k/uL RBC 3.77 L (4.30-5.90) m/uL Hgb 11.8 L (13.0-17.5) gm/dL Hct 38.1 L (39.0-53.0) % MCV 101.1 H (80.0-100.0) fL MCH 31.2 (25.0-35.0) pg MCHC 30.9 L (31.0-37.0) g/dL RDW 18.4 H (11.5-15.5) % Plt Count 238 (150-450) k/uL MPV 7.8 Neutrophils % 56 % Lymphocytes % 15 % Monocytes % 25 % Eosinophils % 1 % Basophils % 0 % Neutrophils # 1.8 (1.3-7.7) k/uL Lymphocytes # 0.5 L (1.0-4.8) k/uL Monocytes # 0.8 (0-1.0) k/uL Eosinophils # 0.0 (0-0.7) k/uL Basophils # 0.0 (0-0.2) k/uL Manual Slide Review Performed Hypochromasia Marked Anisocytosis Slight Macrocytosis Moderate Sodium 137 (137-145) mmol/L Potassium 5.1 (3.5-5.1) mmol/L Chloride 105 (98-107) mmol/L Carbon Dioxide 23 (22-30) mmol/L Anion Gap 9 mmol/L BUN 9 (9-20) mg/dL Creatinine 0.70 (0.66-1.25) mg/dL Est GFR (CKD-EPI)AfAm >90 (>60 ml/min/1.73 sqM) Est GFR (CKD-EPI)NonAf >90 (>60 ml/min/1.73 sqM) Glucose 93 (74-99) mg/dL Plasma Lactic Acid Best (0.7-2.0) mmol/L Calcium 9.3 (8.4-10.2) mg/dL Total Bilirubin 0.8 (0.2-1.3) mg/dL AST 48 (17-59) U/L ALT 37 (4-49) U/L Alkaline Phosphatase 80 (38-126) U/L Total Protein 8.5 H (6.3-8.2) g/dL Albumin 4.4 (3.5-5.0) g/dL Lipase 213 (23-300) U/L Urine Color Yellow Urine Appearance Turbid (Clear) Urine pH 7.5 (5.0-8.0) Ur Specific [place] 1.025 (1.001-1.035) Urine Protein Trace H (Negative) Urine Glucose (UA) Negative (Negative) Urine Ketones Trace H (Negative) Urine Blood Negative (Negative) Urine Nitrite Negative (Negative) Urine Bilirubin Negative (Negative) Urine Urobilinogen 3.0 (<2.0) mg/dL Ur Leukocyte Esterase Negative (Negative) Urine RBC 1 (0-5) /hpf Amorphous Sediment Few H (None) /hpf Urine Mucus Rare H (None) /hpf 12/25/22 Range/Units 11:45 WBC (3.8-10.6) k/uL RBC (4.30-5.90) m/uL Hgb (13.0-17.5) gm/dL Hct (39.0-53.0) % MCV (80.0-100.0) fL MCH (25.0-35.0) pg MCHC (31.0-37.0) g/dL RDW (11.5-15.5) % Plt Count (150-450) k/uL MPV Neutrophils % % Lymphocytes % % Monocytes % % Eosinophils % % Basophils % % Neutrophils # (1.3-7.7) k/uL Lymphocytes # (1.0-4.8) k/uL Monocytes # (0-1.0) k/uL Eosinophils # (0-0.7) k/uL Basophils # (0-0.2) k/uL Manual Slide Review Hypochromasia Anisocytosis Macrocytosis Sodium (137-145) mmol/L Potassium (3.5-5.1) mmol/L Chloride (98-107) mmol/L Carbon Dioxide (22-30) mmol/L Anion Gap mmol/L BUN (9-20) mg/dL Creatinine (0.66-1.25) mg/dL Est GFR (CKD-EPI)AfAm (>60 ml/min/1.73 sqM) Est GFR (CKD-EPI)NonAf (>60 ml/min/1.73 sqM) Glucose (74-99) mg/dL Plasma Lactic Acid Best 1.0 (0.7-2.0) mmol/L Calcium (8.4-10.2) mg/dL Total Bilirubin (0.2-1.3) mg/dL AST (17-59) U/L ALT (4-49) U/L Alkaline Phosphatase (38-126) U/L Total Protein (6.3-8.2) g/dL Albumin (3.5-5.0) g/dL Lipase (23-300) U/L Urine Color Urine Appearance (Clear) Urine pH (5.0-8.0) Ur Specific [place] (1.001-1.035) Urine Protein (Negative) Urine Glucose (UA) (Negative) Urine Ketones (Negative) Urine Blood (Negative) Urine Nitrite (Negative) Urine Bilirubin (Negative) Urine Urobilinogen (<2.0) mg/dL Ur Leukocyte Esterase (Negative) Urine RBC (0-5) /hpf Amorphous Sediment (None) /hpf Urine Mucus (None) /hpf Disposition Clinical Impression: Abdominal pain Disposition: HOME SELF-CARE Condition: Stable Instructions (If sedation given, give patient instructions): Abdominal Pain (ED) Additional Instructions: Your CT and gallbladder ultrasound was within normal limits. Please follow-up should you have any new or worsening symptoms Is patient prescribed a controlled substance at d/c from ED?: No Referrals: Lizabeth Burgess MD [Primary Care Provider] - 1-2 days Time of Disposition: 14:10
[2022-12-25 14:39] VITALS: BP 137/99; PULSE 74; RESP 16
== END 2022-12-25 14:39 | disposition home or self-care (01) ==
LOC: EC 10:25
DX: R10.9 Unspecified abdominal pain (principal); F41.9 Anxiety disorder, unspecified; F32.A Depression, unspecified; F12.90 Cannabis use, unspecified, uncomplicated; F17.200 Nicotine dependence, unspecified, uncomplicated; Z79.899 Other long term (current) drug therapy; Z88.5 Allergy status to narcotic agent
CPT/HCPCS: 36415; 80053; 83605; 83690; 85025; 81001; 76705; 74177; 99284; 96360; Q9967